=== PATIENT | female | born 1935 | race Caucasian/White ===

== ENCOUNTER → 2017-04-07 | Outpatient (CLI) | payer BC ==
[~2017-04-07] MED LIST: BIMA0.01 OPB; CHOL100010 PO; CYCL0.052 OPB; MULT1CHW42 PO; SYN75 PO; VITA100C4 PO
--- NOTE | 2017-04-07 14:32 | MAMMOGRAPHY REPORT ---
BILATERAL DIGITAL SCREENING MAMMOGRAM WITH CAD: 04/07/2017 CLINICAL HISTORY: Routine screening. Patient has no complaints. TECHNIQUE: Current study was also evaluated with a Computer Aided Detection (CAD) system. Bilateral CC and MLO views were obtained. COMPARISON: Comparison is made to exams dated: 12/10/2014 mammogram, 12/06/2013 mammogram, 11/29/2012 m ammogram, 11/23/2011 mammogram, 11/18/2010 mammogram, and 11/12/2009 mammogram - [facility] nter. BREAST COMPOSITION: The tissue of both breasts is heterogeneously dense, which may obscure small mas ses. FINDINGS: No suspicious masses, calcifications, or areas of architectural distortion are noted in ei ther breast. There has been no significant interval change compared to prior exams. Scattered bilater al benign-appearing calcifications are not significantly changed. There are stable asymmetries in th e right upper outer quadrant and left subareolar breast. IMPRESSION: ACR BI-RADS CATEGORY 2: BENIGN There is no mammographic evidence of malignancy. A 1 year screening mammogram is recommended. The pa tient will receive written notification of the results. Approximately 10% of breast cancers are not detected with mammography. A negative mammographic report should not delay biopsy if a clinically suggestive mass is present. Almita Newman M.D. /:04/07/2017 12:01:08 Plaster Machine Tender: Liliam GARCIA(R)(M)(BD), [facility] letter sent: Normal 1/2 BI-RADS Code: ACR BI-RADS Category 2: Benign
== END | disposition home or self-care (01) ==
LOC: C.MAMM 11:18
PROVIDERS: ATTEND Family Medicine
DX: Z12.31 Encounter for screening mammogram for malignant neoplasm of breast (principal)

== ENCOUNTER → 2017-06-02 | Outpatient (CLI) | payer BC ==
[2017-06-02 15:32] LABS: MEAN CELL VOLUME 92.3 fL (80-100); MEAN CORPUSCULAR HEMOGLOBIN 30.4 pg (25-34); MEAN CORPUSCULAR HGB CONC 32.9 g/dl (32-36); MEAN PLATELET VOLUME 11.4 fL (7.4-10.4); PLATELET COUNT 190 K/uL (130-400); RED BLOOD COUNT 4.44 M/uL (4.2-5.4); WHITE BLOOD COUNT 5.03 K/uL (4.8-10.8)
[2017-06-02 15:52] LABS: ALT/SGPT 21 U/L (12-78); AST/SGOT 19 U/L (15-37); BLOOD UREA NITROGEN 17 mg/dl (7-18); CALCIUM 8.6 mg/dl (8.5-10.1); CARBON DIOXIDE 29 mmol/L (21-32); CHLORIDE 105 mmol/L (98-107); GLUCOSE 119 mg/dl (70-99); POTASSIUM 4.1 mmol/L (3.5-5.1); SODIUM 142 mmol/L (136-145)
[2017-06-02 16:04] LABS: ALB/GLOB RATIO 0.9 (0.9-2); ALKALINE PHOSPHATASE 94 U/L (45-117)
[2017-06-02 16:43] LABS: URINE APPEARANCE CLEAR (CLEAR); URINE BILIRUBIN NEG (NEG); URINE COLOR YELLOW; URINE EPITHELIAL CELL AUTO 20-30 /lpf (0-5); URINE NITRITE NEG (NEG); URINE SPECIFIC GRAVITY 1.027 (1.000-1.030); UROBILINOGEN NEG (NEG)
[2017-06-02 16:47] LABS: MANUAL MICROSCOPIC REQUIRED? NO; REVIEW REQ? NO
[2017-06-02 17:31] LABS: LYME DISEASE AB IGG NEG (NEG); LYME DISEASE AB IGM NEG (NEG)
[2017-06-05 19:09] LABS: C-REACTIVE PROT HIGHSEN 0.5 MG/L
== END | disposition home or self-care (01) ==
LOC: C.LAB 14:52
PROVIDERS: ATTEND Family Medicine
DX: E03.9 Hypothyroidism, unspecified (principal); K58.9 Irritable bowel syndrome, unspecified; R53.81 Other malaise

== ENCOUNTER 2017-12-18 05:55 | Emergency (ER) | payer BC ==
[~2017-12-18] VITALS: Ht 157.5 cm; Wt 51.4 kg
[2017-12-18 05:58] VITALS: TEMP 36.6; Ht 157.5 cm; Wt 51.4 kg
[2017-12-18] MEDS ORDERED: ASPIRIN 81 MG CHEW PO STA (06:09)
[2017-12-18] MEDS ORDERED: NITROGLYCERIN 0.4 MG SL PER TAB CHARGE SL PRN (06:15)
--- NOTE | 2017-12-18 06:37 | DIAGNOSTIC IMAGING REPORT ---
CHEST ONE VIEW PORTABLE HISTORY: 82 years-old Female chest pain acute atypical chest pain COMPARISON: Chest radiograph 03/29/2016 TECHNIQUE: Portable AP view of the chest FINDINGS: Cardiac silhouette is within normal limits. Calcified hilar lymph nodes are seen bilaterally with additional calcified granulomata within the retrocardiac distribution. Mild biapical pleural-parenchymal scarring without pneumothorax, pleural effusion, focal airspace consolidation or overt pulmonary edema. The bones appear mildly demineralized with degenerative changes of the shoulders and spine. IMPRESSION: 1. No acute process of the chest. 2. Prior granulomatous disease. The above report was generated using voice recognition software. It may contain grammatical, syntax or spelling errors. Electronically signed by: Edwin Salamanca M.D. 12/18/2017 6:36 AM Dictated Date/Time: 12/18/2017 6:35 AM
--- NOTE | 2017-12-18 06:50 | EMERGENCY ROOM VISIT NOTE ---
History Report prepared by Seb: Hector Padgett Under the Supervision of: Dr. Luis Enrique Alvarez M.D. First contact with patient: 06:29 Chief Complaint: PALPITATIONS Stated Complaint: PALPITATIONS,NOT FEELING WELL,VOMITING 2DYS AGO Nursing Triage Summary: Awoke at 0300 with palpitations, asymptomatic otherwise. No associated symtpoms this morning. [place] OK at bedtime. Single episode of vomiting at breakfast two days ago. Just finished doxycycline for Lyme disease. Recent UTI. History of Present Illness The patient is a 82 year old female who presents to the Emergency Room with complaints of an episode of heart palpitations occurring 3.5 hours ago. She woke up with her symptoms during the night. She felt normal prior to falling asleep. The patient was diagnosed with Lyme disease two weeks ago, and just finished a course of Doxycycline. She notes she has a rash on her back from this. She reports vomiting once two days ago as well. The patient states that she currently feels normal. She estimates that her heart rate was over 100 bpm, but did not actually check. The patient denies chest pain, SOB, dizziness, fevers, headache, black/bloody stool, leg pain/swelling, diaphoresis, or lightheadedness. She denies recent travel, history of blood clots, or pain with inspiration. She is not on any blood thinners. The patient is on medication for hypothyroid. Source of History: patient Onset: 3.5 hours ago Symptom Intensity: Heart rate estimated over 100 bpm Quality: other (heart palpitations) Timing: other (episode) Associated Symptoms: + vomiting (once, two days ago), No fevers, No headache , No diaphoresis, No chest pain, No SOB, No melena, No hematochezia Note: The patient denies dizziness, leg pain/swelling, or lightheadedness Review of Systems See HPI for pertinent positives & negatives. A total of 10 systems reviewed and were otherwise negative. Past Medical & Surgical Medical Problems: (1) Bronchitis (2) Dysuria (3) Endometrial Hyperplasia (4) Esophageal Reflux (5) Hypothyroidism Nos (6) Shortness of breath Surgical Problems: (1) History of appendectomy Old medical records were reviewed. Nurse's notes were reviewed and I agree with. Family History FHx: cancer Hypertension Social History Smoking Status: Never Smoker Alcohol Use: none Marital Status: Housing Status: lives with significant other Occupation Status: unemployed Current/Historical Medications Scheduled Bimatoprost (Lumigan), 1 DROP OPB DAILY Cholecalciferol (Vitamin D), 1,000 INTER.UNIT PO DAILY Cyclosporine (Ophth) (Restasis), 1 DROP OPB BID Levothyroxine Sodium (Synthroid), 75 MCG PO DAILY Multiple Vitamins W/ Minerals (Centrum Multigummies Adul), 1 TAB PO DAILY Tocopheryl Acet,Dl-Alpha (Vitamin E), 100 INTER.UNIT PO DAILY Allergies Coded Allergies: Naproxen (Unverified Allergy, Severe, SWELLING OF EYES, LIPS., 12/18/17) Sulfa Antibiotics (Verified Allergy, Mild, `, 12/18/17) Tetanus Toxoid (Verified Allergy, Unknown, SWELLING, 12/18/17) Physical Exam Vital Signs Date Time Temp Pulse Resp B/P (MAP) Pulse Ox O2 Delivery O2 Flow Rate FiO2 12/18/17 08:11 82 18 150/74 100 Room Air 12/18/17 06:31 167/89 12/18/17 06:29 92 12/18/17 06:25 89 22 100 Room Air 12/18/17 06:12 166/83 12/18/17 05:58 36.6 98 18 171/95 96 Room Air Physical Exam General: Non-ill appearing older female in no acute distress. HEENT: Normal cephalic atraumatic. Pupils are equal round and reactive to light. Extraocular movements are intact. Oropharynx is pink with moist mucous membranes. No swelling of the mouth lips or tongue. Neck: Supple with a midline trachea. No meningeal signs or stiffness, no JVD or bruits. No Stridor. Chest: Clear to auscultation bilaterally. No wheezes or rhonchi. No increased work of breathing. Heart: regular rate and rhythm. Abdomen: Soft nontender, nondistended without rebound guarding or rigidity. Extremities: No cyanosis clubbing or edema. No calf tenderness or assymetry Spine/Back. Non tender to palpation. No CVA tenderness Skin: Multiple scabbed areas on the back where she has been itching. No Bullseye rash seen. Neurologic exam: Cranial nerves two through 12 are intact. Motor and sensation are intact and symmetrical throughout. Medical Decision & Procedures ER Provider Diagnostic Interpretation: Radiology results as stated below per my review and radiologist interpretation: CHEST ONE VIEW PORTABLE FINDINGS: Cardiac silhouette is within normal limits. Calcified hilar lymph nodes are seen bilaterally with additional calcified granulomata within the retrocardiac distribution. Mild biapical pleural-parenchymal scarring without pneumothorax, pleural effusion, focal airspace consolidation or overt pulmonary edema. The bones appear mildly demineralized with degenerative changes of the shoulders and spine. IMPRESSION: 1. No acute process of the chest. 2. Prior granulomatous disease. The above report was generated using voice recognition software. It may contain grammatical, syntax or spelling errors. Electronically signed by: Edwin Salamanca M.D. 12/18/2017 6:36 AM Laboratory Results 12/18/17 06:45 Red Blood Count 4.39, Mean Corpuscular Volume 90.9, Mean Corpuscular Hemoglobin 31.0, Mean Corpuscular Hemoglobin Concent 34.1, Mean Platelet Volume 10.7, Neutrophils (%) (Auto) 59.5, Lymphocytes (%) (Auto) 26.8, Monocytes (%) (Auto) 7.7, Eosinophils (%) (Auto) 5.0, Basophils (%) (Auto) 1.0, Neutrophils # (Auto) 2.49, Lymphocytes # (Auto) 1.12, Monocytes # (Auto) 0.32, Eosinophils # (Auto) 0.21, Basophils # (Auto) 0.04 12/18/17 06:45 Test 12/18/17 06:45 12/18/17 07:10 White Blood Count 4.18 K/uL (4.8-10.8) Red Blood Count 4.39 M/uL (4.2-5.4) Hemoglobin 13.6 g/dL (12.0-16.0) Hematocrit 39.9 % (37-47) Mean Corpuscular Volume 90.9 fL (80-100) Mean Corpuscular Hemoglobin 31.0 pg (25-34) Mean Corpuscular Hemoglobin Concent 34.1 g/dl (32-36) Platelet Count 194 K/uL (130-400) Mean Platelet Volume 10.7 fL (7.4-10.4) Neutrophils (%) (Auto) 59.5 % Lymphocytes (%) (Auto) 26.8 % Monocytes (%) (Auto) 7.7 % Eosinophils (%) (Auto) 5.0 % Basophils (%) (Auto) 1.0 % Neutrophils # (Auto) 2.49 K/uL (1.4-6.5) Lymphocytes # (Auto) 1.12 K/uL (1.2-3.4) Monocytes # (Auto) 0.32 K/uL (0.11-0.59) Eosinophils # (Auto) 0.21 K/uL (0-0.5) Basophils # (Auto) 0.04 K/uL (0-0.2) RDW Standard Deviation 46.0 fL (36.4-46.3) RDW Coefficient of Variation 13.8 % (11.5-14.5) Immature Granulocyte % (Auto) 0.0 % Immature Granulocyte # (Auto) 0.00 K/uL (0.00-0.02) Anion Gap 7.0 mmol/L (3-11) Est Creatinine Clear Calc Drug Dose 31.2 ml/min Estimated GFR () 53.4 Estimated GFR (Non- 46.0 BUN/Creatinine Ratio 15.6 (10-20) Calcium Level 8.4 mg/dl (8.5-10.1) Total Bilirubin 0.5 mg/dl (0.2-1) Direct Bilirubin 0.1 mg/dl (0-0.2) Aspartate Amino Transf (AST/SGOT) 23 U/L (15-37) Alanine Aminotransferase (ALT/SGPT) 25 U/L (12-78) Alkaline Phosphatase 77 U/L (45-117) Troponin I < 0.015 ng/ml (0-0.045) Total Protein 7.4 gm/dl (6.4-8.2) Albumin 3.4 gm/dl (3.4-5.0) Thyroid Stimulating Hormone (TSH) 2.380 uIu/ml (0.300-4.500) Urine Color YELLOW Urine Appearance CLEAR (CLEAR) Urine pH 7.5 (4.5-7.5) Urine Specific [place] 1.015 (1.000-1.030) Urine Protein NEG (NEG) Urine Glucose (UA) NEG (NEG) Urine Ketones NEG (NEG) Urine Occult Blood TRACE (NEG) Urine Nitrite NEG (NEG) Urine Bilirubin NEG (NEG) Urine Urobilinogen NEG (NEG) Urine Leukocyte Esterase NEG (NEG) Urine WBC (Auto) 0 /hpf (0-5) Urine RBC (Auto) 0-4 /hpf (0-4) Urine Hyaline Casts (Auto) 0 /lpf (0-5) Urine Epithelial Cells (Auto) 0-5 /lpf (0-5) Urine Bacteria (Auto) NEG (NEG) Laboratory studies as stated above per my review. Medications Administered Medications (Trade) Dose Ordered Sig/Xochitl Route Start Time Stop Time Status Last Admin Dose Admin Aspirin (Aspirin Chew) 324 mg NOW STAT PO 12/18/17 06:09 12/18/17 06:12 DC 12/18/17 06:29 324 MG ECG Per My Interpretation Indication: palpitations Rate (beats per minute): 100 Rhythm: normal sinus Findings: other (No ST elevations. No PVCs. Normal intervals. ) Comparison ECG Date: Mar 29, 2016 Change: no significant change ED Course 0631: Past medical records reviewed. The patient was evaluated in room B11B, and a complete history and physical examination were performed. 0810: Upon reevaluation, the patient is resting comfortably. I discussed the results and treatment plan with her. She verbalized agreement of the treatment plan. The patient was discharged home. Medical Decision Differentials include, but are not limited to; palpitations, ACS, arrhythmia, pulmonary disease, thyroid disease and electrolyte or metabolic abnormality. This patient comes in as described above. She was placed on a manufacturing area manager in room B 11. She woke up with rapid heart rate around 3 in the morning said was about 100. There is no lightheadedness or dizziness or syncope. No chest pain or shortness of breath. At present, she is not tachycardic and has no symptoms. EKG was obtained and shows no acute ischemic changes or significant arrhythmia. IV access was established multiple blood testing was obtained. Chest x-ray was unremarkable and shows no acute infiltrate failure or pneumothorax seen. Her blood work was unremarkable. She has no electrolyte or metabolic abnormalities. Her thyroid screening test is within normal limits. She has no elevation of her cardiac biomarkers. She seems to be most distressed with itching on her back which she thinks is from the Lyme. I think this is probably not from the Lyme. There is no bull's-eye rash. she does have some scabs where she has been itching .I recommended that she could use an antihistamine for this but be careful as it could make her drowsy and do not take before drinking, driving, working. At this point , she does not have any evidence to suggest acute coronary syndrome or significant arrhythmia. There may be some anxiety involved as well potentially. I do think she is stable for discharge and I recommend she follow-up with her doctor this week for recheck and return to the ER if: Recurrence of symptoms, any new problems or concerns, chest pain. She was happy with the plan and discharged to home. Medication Reconcilliation Current Medication List: was personally reviewed by me Blood Pressure Screening Patient's blood pressure: Elevated blood pressure Blood pressure disposition: Referred to PCP Impression Primary Impression: Palpitations Additional Impression: Pruritic rash Scribe Attestation The scribe's documentation has been prepared under my direction and personally reviewed by me in its entirety. I confirm that the note above accurately reflects all work, treatment, procedures, and medical decision making performed by me. Departure Information Dispostion Home / Self-Care Referrals Jose Mcdonnell M.D. (PCP) Forms HOME CARE DOCUMENTATION FORM, IMPORTANT VISIT INFORMATION, WORK / SCHOOL INSTRUCTIONS Patient Instructions My [facility] Additional Instructions Rest. Drink plenty of fluids. Follow-up with your doctor this week for recheck Return to the ER if: Worsening of symptoms, chest pain, shortness of breath, racing heart rate, recurrence of symptoms, any new problems or concerns For your itching you may try either Benadryl or Claritin or another over-the- counter antihistamine. Be careful however they can make you very drowsy and do not take before drinking, driving, working Problem Qualifiers
[2017-12-18 06:58] LABS: BASO ABS # 0.04 K/uL (0-0.2); EOS ABS # 0.21 K/uL (0-0.5); HEMATOCRIT 39.9 % (37-47); HEMOGLOBIN 13.6 g/dL (12.0-16.0); LYMPH % 26.8 %; LYMPH ABS # 1.12 K/uL (1.2-3.4); MEAN CELL VOLUME 90.9 fL (80-100); MEAN CORPUSCULAR HGB CONC 34.1 g/dl (32-36); MEAN PLATELET VOLUME 10.7 fL (7.4-10.4); MONO % 7.7 %; MONO ABS # 0.32 K/uL (0.11-0.59); NEUT % 59.5 %; NEUT ABS # 2.49 K/uL (1.4-6.5); PLATELET COUNT 194 K/uL (130-400); RED CELL DISTRIBUTION WIDTH CV 13.8 % (11.5-14.5); WHITE BLOOD COUNT 4.18 K/uL (4.8-10.8)
[2017-12-18 07:16] LABS: ALBUMIN 3.4 gm/dl (3.4-5.0); ALT/SGPT 25 U/L (12-78); AST/SGOT 23 U/L (15-37); BLOOD UREA NITROGEN 18 mg/dl (7-18); CALCIUM 8.4 mg/dl (8.5-10.1); CARBON DIOXIDE 28 mmol/L (21-32); CREATININE 1.12 mg/dl (0.60-1.20); GLUCOSE 100 mg/dl (70-99); POTASSIUM 3.7 mmol/L (3.5-5.1); SODIUM 142 mmol/L (136-145)
[2017-12-18 07:27] LABS: ALKALINE PHOSPHATASE 77 U/L (45-117); TOTAL PROTEIN 7.4 gm/dl (6.4-8.2)
[2017-12-18 08:11] VITALS: BP 150/74; PULSE 82; O2SAT 100
== END 2017-12-18 08:24 | disposition home or self-care (01) ==
LOC: C.EDB 05:57
DX: R00.2 Palpitations (principal); R21 Rash and other nonspecific skin eruption; R03.0 Elevated blood-pressure reading, without diagnosis of hypertension; E03.9 Hypothyroidism, unspecified; K21.9 Gastro-esophageal reflux disease without esophagitis; Z88.6 Allergy status to analgesic agent; Z88.2 Allergy status to sulfonamides; Z88.7 Allergy status to serum and vaccine

== ENCOUNTER 2022-10-23 14:15 | Inpatient (IN) ==
[2022-10-23] MEDS ORDERED: SODIUM CHLORIDE 0.9% 500 ML IV STA (14:22)
--- NOTE | 2022-10-23 14:25 | Emergency Department Note ---
Impression & Plan Closed hip fracture ADMIT ED Provider Note HPI: The patient is an 86-year-old female who presents the emergency department today with generalized weakness, states she did have a ground-level fall earlier today. Per EMS report, they were called to the house earlier today around 10 AM and found the patient on the ground, her called EMS. Patient declined transfer at that time to the hospital, EMS was later called to the house as the patient was generally weak, she states that her called, she states she does not overall feel well but she is unsure why her called. Patient is a poor historian. She is alert on arrival, she does answer most of my questions appropriately, she is oriented to place and time. She states she does have some pain in her right hip, otherwise denies any focal complaint of pain. ROS: - Per HPI *Outpatient medications and allergy history reviewed. *Pertinent external medical records reviewed. PE: General: Alert HEENT: Normocephalic, trachea midline Eyes: Extraocular eye movement is intact, no scleral erythema Pulmonary: Clear to auscultation bilaterally, no wheezing Cardio: Regular rate and rhythm GI: Abdomen is soft to palpation : No suprapubic tenderness MSK: No evidence of trauma or malformation of the extremities, no edema, patient is unable to flex at her right hip secondary to pain Skin: No evidence of rash Neuro: Alert, no focal deficits Psychiatric: Cooperative campus monitor: (As interpreted by myself): - An order was placed for continuous cardiac monitoring - Patient was noted to be in sinus rhythm with a rate of 90 EKG: (As interpreted by myself): Rate: 93 Rhythm: Normal sinus rhythm Intervals: Within normal limits ST changes: No ST elevation Time: 1430 Interventions provided in ED: -IV fluid bolus Differential Diagnosis: Right-sided hip fracture, intracranial bleed/head injury, lower extremity trauma/injury, urinary tract infection, ACS, sepsis/infection, amongst other potential pathologies. Medical Decision Making: The patient is an 86-year-old female who is a poor historian, presented to the emergency department today with a chief complaint of right lower extremity pain. Patient is a poor historian and is unable to tell me what happened this morning, per EMS reports she did have a fall. On arrival here to the ED the patient is alert, she is in no acute distress on my assessment but does have limited range of motion in the right hip secondary to pain. CT imaging of the head was obtained given the patient's reported unwitnessed fall, this does not show any evidence of intracranial injury. CT imaging of the right hip was also obtained while the patient was at CT given exam findings, this does show evidence of a right-sided intertrochanteric fracture. Patient is otherwise stable here in the ED, she is not on any blood thinners, lab work shows stable hemoglobin at 13.7, mild leukocytosis at 11.3 which I suspect is reactive in nature, BMP is otherwise fairly unremarkable. Gonzales catheter was placed and urine is concerning for infection, blood cultures ordered and patient was given a dose of IV ceftriaxone. Case was discussed with the on-call hospitalist for [facility], Dr. Mayfield, admission was placed. Case was then discussed with on-call orthopedics, Dr. Mcintosh, who is in agreement for routine consultation. Patient and her at the bedside were updated on the above findings, patient was placed for admission in stable condition. Consultants: -Hospitalist service, Dr. Mayfield -Orthopedic service, Dr. Mcintosh Disposition discussion held by myself with: Patient and at the bedside Diagnosis: 1. Right-sided hip fracture status post mechanical fall, closed, intertrochanteric 2. Urinary tract infection, acute 3. Ambulatory dysfunction Disposition: Admission Osito Garcia DO Emergency Medicine Past Med/Surg History Medical History (Updated 10/23/22 @ 15:55 by Miguel Mayfield MD) Bronchitis Generalized weakness Generalized weakness Shortness of breath Thyroid disease Surgical History History of appendectomy Family History Other Family history non-contributory Social History Smoking Status: Never smoker Preferred Language: Estonian marital status: current occupational status: retired Feels Safe at Home: Yes Allergies Allergies Allergy/AdvReac Type Severity Reaction Status Date / Time naproxen Allergy Severe SWELLING Verified 10/23/22 15:28 OF EYES, LIPS. nitrofurantoin Allergy Intermediate Rash Verified 10/23/22 15:28 [From Macrobid] Sulfa (Sulfonamide Allergy Intermediate Rash Verified 10/23/22 15:28 Antibiotics) tetanus toxoid, adsorbed Allergy Intermediate SWELLING Verified 10/23/22 15:28 loperamide [From Imodium A-D] AdvReac Intermediate MANAGER ACCOUNT MANAGEMENT side Verified 10/23/22 15:28 effects omeprazole [From Prilosec] AdvReac Intermediate Abdominal Verified 10/23/22 15:28 Pain risedronate sodium AdvReac Intermediate Aches and Verified 10/23/22 15:28 [From Actonel] gastrointestinal upset Home Meds Home Medications Medication Instructions Recorded Confirmed bimatoprost 0.01 % eye drops 1 drp OPB QPM 08/18/18 10/23/22 (Lumigan) cyclosporine 0.05 % eye drops in a 1 drp OPB DAILY PRN Dry Eyes 08/18/18 10/23/22 dropperette (Restasis) levothyroxine 75 mcg tablet 75 mcg PO QAM 08/18/18 10/23/22 xuoectqr-xmb-zqlsu acid 0.4 1 tab PO QPM 05/12/19 10/23/22 mg-lycopene 300 mcg-lutein 250 mcg tablet (Centrum Silver) Results & Data (ED) Vital Signs Vital Signs - 24 hr 10/23/22 14:15 10/23/22 14:22 10/23/22 15:47 Temperature 36.8 C Temperature Source Oral Pulse Rate 97 H 93 H Respiratory Rate 16 Respiratory Effort / Characteristics Non-Labored Spontaneous Respiratory Depth Normal Blood Pressure 176/74 H Blood Pressure Mean 108 Blood Pressure Position Lying Pulse Oximetry 100 98 Oxygen Delivery Method Room Air Room Air Sepsis Recent Fever Within 48 Hours No Sepsis New/Unexplained Change in Mental Status No Sepsis Action Taken by Nursing No Action Required Laboratory Data 10/23/22 14:40 10/23/22 14:40 Lab Results 10/23/22 10/23/22 10/23/22 Range/Units 14:40 14:40 14:40 WBC 11.30 H (4.8-10.8) K/ul RBC 4.47 (4.20-5.40) M/uL Hgb 13.7 (12.0-16.0) g/dl Hct 41.5 (37.0-47.0) % MCV 92.8 (80.0-100.0) fL MCH 30.6 (25.0-34.0) pg MCHC 33.0 (32.0-36.0) g/dL RDW Std Deviation 45.4 (36.4-46.3) fL RDW Coeff of Yuliana 13.3 (11.5-14.5) % Plt Count 209 (130-400) K/uL MPV 11.4 (9.4-12.4) fL Immature Gran % (Auto) 0.4 % Neut % (Auto) 87.3 % Lymph % (Auto) 5.7 % [place] % (Auto) 5.6 % Eos % (Auto) 0.3 % Baso % (Auto) 0.7 % Neut # (Auto) 9.88 H (1.40-6.50) K/uL Lymph # (Auto) 0.64 L (1.2-3.4) K/uL [place] # (Auto) 0.63 H (0.11-0.59) K/uL Eos # (Auto) 0.03 (0-0.50) K/uL Baso # (Auto) 0.08 (0-0.2) K/uL Immature Gran # (Auto) 0.04 (0.01-0.20) K/uL PT Cancelled INR Cancelled Sodium 141 (136-145) mmol/L Potassium 4.0 (3.5-5.1) mmol/L Chloride 105 (98-107) mmol/L Carbon Dioxide 31 (21-32) mmol/L Anion Gap 5 (3-11) BUN 26 H (6-23) mg/dl Creatinine 1.04 (0.6-1.2) mg/dl Est Cr Clr Drug Dosing 31.3 ml/min Est GFR ( Amer) 56.7 ml/min Est GFR (Non-Af Amer) 49.0 ml/min BUN/Creatinine Ratio 25.0 H (10-20) Glucose 140 H (70-99(Fasting)) mg/dl Calcium 9.3 (8.5-10.1) mg/dl Total Bilirubin 0.6 (0.2-1.0) mg/dl AST 20 (13-39) U/L ALT 12 (7-52) U/L Alkaline Phosphatase 78 (34-104) U/L Troponin I High Sens 3.5 (0-14) pg/ml Total Protein 7.5 (6.0-8.3) gm/dl Albumin 4.0 (3.4-5.0) gm/dl Globulin 3.5 (2.5-4.0) gm/dl Albumin/Globulin Ratio 1.1 (0.9-2) Lipase 16 (11-82) U/L Urine Color Urine Appearance (Clear) Urine pH (4.5-7.5) Ur Specific [place] (1.000-1.030) Urine Protein (Negative) Urine Glucose (UA) (Negative) Urine Ketones (Negative) Urine Blood (Negative) Urine Nitrite (Negative) Urine Bilirubin (Negative) Urine Urobilinogen (Negative) Ur Leukocyte Esterase (Negative) Urine WBC (Auto) (0-5) /hpf Urine RBC (Auto) (0-4) /hpf U Hyaline Cast (Auto) (0-5) /lpf U Epithel Cells (Auto) (0-5) /lpf Urine Bacteria (Auto) (Negative) 10/23/22 Range/Units 15:17 WBC (4.8-10.8) K/ul RBC (4.20-5.40) M/uL Hgb (12.0-16.0) g/dl Hct (37.0-47.0) % MCV (80.0-100.0) fL MCH (25.0-34.0) pg MCHC (32.0-36.0) g/dL RDW Std Deviation (36.4-46.3) fL RDW Coeff of Yuliana (11.5-14.5) % Plt Count (130-400) K/uL MPV (9.4-12.4) fL Immature Gran % (Auto) % Neut % (Auto) % Lymph % (Auto) % [place] % (Auto) % Eos % (Auto) % Baso % (Auto) % Neut # (Auto) (1.40-6.50) K/uL Lymph # (Auto) (1.2-3.4) K/uL [place] # (Auto) (0.11-0.59) K/uL Eos # (Auto) (0-0.50) K/uL Baso # (Auto) (0-0.2) K/uL Immature Gran # (Auto) (0.01-0.20) K/uL PT INR Sodium (136-145) mmol/L Potassium (3.5-5.1) mmol/L Chloride (98-107) mmol/L Carbon Dioxide (21-32) mmol/L Anion Gap (3-11) BUN (6-23) mg/dl Creatinine (0.6-1.2) mg/dl Est Cr Clr Drug Dosing ml/min Est GFR ( Amer) ml/min Est GFR (Non-Af Amer) ml/min BUN/Creatinine Ratio (10-20) Glucose (70-99(Fasting)) mg/dl Calcium (8.5-10.1) mg/dl Total Bilirubin (0.2-1.0) mg/dl AST (13-39) U/L ALT (7-52) U/L Alkaline Phosphatase (34-104) U/L Troponin I High Sens (0-14) pg/ml Total Protein (6.0-8.3) gm/dl Albumin (3.4-5.0) gm/dl Globulin (2.5-4.0) gm/dl Albumin/Globulin Ratio (0.9-2) Lipase (11-82) U/L Urine Color Yellow Urine Appearance Clear (Clear) Urine pH 6.0 (4.5-7.5) Ur Specific [place] 1.018 (1.000-1.030) Urine Protein Negative (Negative) Urine Glucose (UA) Negative (Negative) Urine Ketones Negative (Negative) Urine Blood 1+ H (Negative) Urine Nitrite Positive A (Negative) Urine Bilirubin Negative (Negative) Urine Urobilinogen Negative (Negative) Ur Leukocyte Esterase 1+ H (Negative) Urine WBC (Auto) 10-30 H (0-5) /hpf Urine RBC (Auto) 0-4 (0-4) /hpf U Hyaline Cast (Auto) 1-5 (0-5) /lpf U Epithel Cells (Auto) 0-5 (0-5) /lpf Urine Bacteria (Auto) 4+ H (Negative) Administered Medications Discontinued Medications Sodium Chloride (Nss) 500 mls @ 999 mls/hr IV .Q31M STA Stop: 10/23/22 14:52 Last Infusion: 10/23/22 15:11 Dose: 0 mls/hr Documented By: Admin: 10/23/22 14:40 Dose: 999 mls/hr Documented By: AB Imaging Data Radiologist's Impression: Head CT 10/23/22 14:21 CT head/brain wo con CLINICAL HISTORY: 86 years-old Female with Fall. Acute head trauma status post fall TECHNIQUE: Multiple axial CT images of the head were obtained without contrast. A dose lowering technique was utilized adhering to the principles of ALARA. COMPARISON: 04/20/2014 FINDINGS: No acute intracranial hemorrhage, midline shift, intracranial mass, hydrocephalus, territorial ischemia or abnormal extra-axial collection. Involutional changes with chronic microvascular ischemic disease. The calvarium is intact. Bilateral lens repair. The paranasal sinuses, mastoid air cells, and middle ear cavities are clear. IMPRESSION: No acute intracranial abnormality or calvarial fracture. ACT 112: Negative or not required by law. The above report was generated using voice recognition software. It may contain grammatical, syntax or spelling errors. Electronically signed by: Priyank Salamanca M.D. 10/23/2022 3:[address] 10/23/22 14:21 CT hip RT wo con HISTORY: 86 years-old Female fall, R hip pain . Acute right-sided hip pain status post fall COMPARISON: CT abdomen and pelvis 07/06/2019 TECHNIQUE: Multiple axial CT images of the right hip were obtained without the use of IV contrast. A dose lowering technique was used consistent with the principals of ALARA. FINDINGS: No acute intrapelvic abnormality. Colonic diverticulosis. There is an acute intertrochanteric comminuted mildly impacted fracture of the right femur with fracture fragments displaced up to 10 mm. Moderate right hip osteoarthritis. No additional acute fracture or dislocation. IMPRESSION: Acute acute mildly impacted and mildly displaced intertrochanteric fracture of the right femur. ACT 112: Negative or not required by law. The above report was generated using voice recognition software. It may contain grammatical, syntax or spelling errors. Electronically signed by: Priyank Salamanca M.D. 10/23/2022 3:12 PM Chest X-Ray 10/23/22 14:23 XR chest 1V portable HISTORY: 86 years-old Female fall acute chest trauma status post fall COMPARISON: 07/14/2019 TECHNIQUE: Supine AP view of the chest FINDINGS: Cardiomediastinal and hilar silhouettes are within normal limits. Unchanged mediastinal calcifications. No pneumothorax, pleural effusion, airspace consolidation or overt pulmonary edema. Bones appear grossly intact. IMPRESSION: No acute process. ACT 112: Negative or not required by law. The above report was generated using voice recognition software. It may contain grammatical, syntax or spelling errors. Electronically signed by: Priyank Salamanca M.D. 10/23/2022 3:33 PM Discharge Plan Visit Data Chief Complaint: Fall Stated Complaint: FALL/RIGHT HIP PAIN ED Provider: Osito Garcia Discharge Problem: Closed hip fracture Forms Stand Alone Forms: My [facility] Prescriptions Prescriptions: No Action levothyroxine 75 mcg tablet 75 mcg PO QAM cyclosporine [Restasis] 0.05 % Dropperette 1 drp OPB DAILY PRN (Reason: Dry Eyes) Lumigan 0.01 % Drops 1 drp OPB QPM Centrum Silver 0.4-300-250 mg-mcg-mcg Tablet 1 tab PO QPM Referrals Referrals: Jose Mcdonnell MD [Physician] - Closed hip fracture Qualifiers: Encounter type: initial encounter Laterality: right Qualified Code(s): S72.001A - Fracture of unspecified part of neck of right femur, initial encounter for closed fracture
[2022-10-23 14:53] LABS: Basophils # (auto) 0.08 K/uL (0-0.2); Basophils % (auto) 0.7 %; Eosinophils # (auto) 0.03 K/uL (0-0.50); Eosinophils % (auto) 0.3 %; Hematocrit (blood only) 41.5 % (37.0-47.0); Hemoglobin 13.7 g/dl (12.0-16.0); Immature Granulocytes # (auto) 0.04 K/uL (0.01-0.20); Immature Granulocytes % (auto) 0.4 %; Lymphocytes # (auto) 0.64 K/uL (1.2-3.4); Lymphocytes % (auto) 5.7 %; Mean Corpuscular Hemoglobin 30.6 pg (25.0-34.0); Mean Corpuscular Volume 92.8 fL (80.0-100.0); Mean Platelet Volume 11.4 fL (9.4-12.4); Monocytes # (auto) 0.63 K/uL (0.11-0.59); Monocytes % (auto) 5.6 %; Neutrophils # (auto) 9.88 K/uL (1.40-6.50); Neutrophils % (auto) 87.3 %; Platelet Count 209 K/uL (130-400); RDW Coefficient of Variation 13.3 % (11.5-14.5); RDW Standard Deviation 45.4 fL (36.4-46.3); Red Blood Count 4.47 M/uL (4.20-5.40)
--- NOTE | 2022-10-23 15:09 | CT Scan Report ---
CT head/brain wo con CLINICAL HISTORY: 86 years-old Female with Fall. Acute head trauma status post fall TECHNIQUE: Multiple axial CT images of the head were obtained without contrast. A dose lowering tech nique was utilized adhering to the principles of ALARA. COMPARISON: 04/20/2014 FINDINGS: No acute intracranial hemorrhage, midline shift, intracranial mass, hydrocephalus, territorial ischem ia or abnormal extra-axial collection. Involutional changes with chronic microvascular ischemic disea se. The calvarium is intact. Bilateral lens repair. The paranasal sinuses, mastoid air cells, and middle ear cavities are clear. IMPRESSION: No acute intracranial abnormality or calvarial fracture. ACT 112: Negative or not required by law. The above report was generated using voice recognition software. It may contain grammatical, syntax o r spelling errors. Electronically signed by: Priyank Salamanca M.D. 10/23/2022 3:07 PM
[2022-10-23 15:12] LABS: Albumin Globulin Ratio 1.1 (0.9-2); Bilirubin,Total 0.6 mg/dl (0.2-1.0); Calcium 9.3 mg/dl (8.5-10.1); Creatinine Clr Calc Pharmacy 31.3 ml/min; Est GFR (African American) 56.7 ml/min; Globulin 3.5 gm/dl (2.5-4.0); Total Protein 7.5 gm/dl (6.0-8.3)
--- NOTE | 2022-10-23 15:15 | CT Scan Report ---
CT hip RT wo con HISTORY: 86 years-old Female fall, R hip pain . Acute right-sided hip pain status post fall COMPARISON: CT abdomen and pelvis 07/06/2019 TECHNIQUE: Multiple axial CT images of the right hip were obtained without the use of IV contrast. A dose lowering technique was used consistent with the principals of ROMÁN. FINDINGS: No acute intrapelvic abnormality. Colonic diverticulosis. There is an acute intertrochanteric comminu desirae mildly impacted fracture of the right femur with fracture fragments displaced up to 10 mm. Modera te right hip osteoarthritis. No additional acute fracture or dislocation. IMPRESSION: Acute acute mildly impacted and mildly displaced intertrochanteric fracture of the right femur. ACT 112: Negative or not required by law. The above report was generated using voice recognition software. It may contain grammatical, syntax o r spelling errors. Electronically signed by: Priyank Salamanca M.D. 10/23/2022 3:12 PM
[2022-10-23 15:17] LABS: Troponin I High Sensitivity 3.5 pg/ml (0-14)
[2022-10-23 15:29] LABS: Appearance Urine Clear (Clear); Bacteria Urine Automated 4+ (Negative); Bilirubin Urine Negative (Negative); Blood Urine 1+ (Negative); Color Urine Yellow; Epithelial Cell Urine Auto 0-5 /lpf (0-5); Glucose Urine UA Negative (Negative); Ketones Urine Negative (Negative); Leukocyte Esterase Urine 1+ (Negative); Nitrite Urine Positive (Negative); Protein Urine Negative (Negative); RBC Urine Automated 0-4 /hpf (0-4); Specific Gravity Urine 1.018 (1.000-1.030); Urobilinogen Urine Negative (Negative)
--- NOTE | 2022-10-23 15:32 | History & Physical Report ---
Date of Service October 23, 2022 Assessment & Plan (1) Hip fracture, right: Plan: Hip fracture 2/2 ground-level fall without head injury in the setting of UTI -CThead: No intracranial injury -CTright hip: Right-sided intertrochanteric fracture Orthopedics consulted RCRI 0 points, class I risk -Hemoglobin 13.7 -Leukocytosis 11.3 likely reactive -EKG: Normal sinus rhythm, rate 93, QTc 447 -Sodium: Normal -Potassium: Normal -BS, no history of diabetes. -CXR: No acute findings, CVA clear - Gonzales in place, fall precautions - NPO, Normosol 2/2 rocephin use (2) UTI (urinary tract infection): Plan: UTI Tachycardia, 2 to 3 days of weakness, infected appearing UA - UC pending Blood cultures pending Received empiric Rocephin, continued. Follow cultures Patient Bactrim allergic, otherwise no antibiotic allergies Suspect weakness just daily UTI leading to fall with hip fracture (3) Thyroid disease: Plan: Continue Synthroid (4) Closed hip fracture: Plan CODE STATUS: Full code per discussion with the patient and her . Diet: N.p.o. DVT prophylaxis: SCDs. Heparin BID for CrCl ~30, hold morning of surgery Dispo: Medical surgical History of Present Illness Primary Care Provider: Artemio Rodriguez MD Noemí is a 86-year-old female presents with a ground-level fall and generalized weakness at 10 AM. Patient initially declined transfer to hospital when her called EMS, however cannot ambulate and has been called and then transferred patient to the hospital by EMS. Patient is a poor historian, history is limited by cognitive status. History is taken with the assistance of her at the bedside. Patient is not oriented, frequently forgetful, and forgets that she has broken her hip several times during HPI. Her reports that she has been much more weak in the last day or 2. Has not complained of urinary symptoms, but has had similar weakness with UTIs in the past. This morning she was eating breakfast when he heard her cry and cereal at the floor, patient was found to have fallen. EMS was called but patient did not want to go to the hospital and declined initially. She was unable to get up off the ground and her was not able to help her and get her standing, EMS was called again and patient was brought to the ER for evaluation. She denies chest pain, chest pressure, lightheadedness, dizziness. She does endorse right hip pain when she tries to move. Denies numbness/tingling. No abdominal pain. Denies urinary frequency, dysuria. Per patient and her at bedside patient has no history of cardiac disease, no history of heart failure, no diabetes, no kidney disease, no lung disease. Has never been on insulin. Does not take any blood thinners. Takes eyedrops, and Synthroid. Otherwise has no chronic medical problems and takes no other medications. Is allergic to sulfa. No other medication allergies. Denies pertinent family history. Denies alcohol, tobacco, medical marijuana, recreational drug use. Has not had any reactions to anesthesia in the past. Allergies Allergy/AdvReac Type Severity Reaction Status Date / Time naproxen Allergy Severe SWELLING Verified 10/23/22 15:28 OF EYES, LIPS. nitrofurantoin Allergy Intermediate Rash Verified 10/23/22 15:28 [From Macrobid] Sulfa (Sulfonamide Allergy Intermediate Rash Verified 10/23/22 15:28 Antibiotics) tetanus toxoid, adsorbed Allergy Intermediate SWELLING Verified 10/23/22 15:28 loperamide [From Imodium A-D] AdvReac Intermediate ART GALLERY INTERNSHIP side Verified 10/23/22 15:28 effects omeprazole [From Prilosec] AdvReac Intermediate Abdominal Verified 10/23/22 15:28 Pain risedronate sodium AdvReac Intermediate Aches and Verified 10/23/22 15:28 [From Actonel] gastrointestinal upset Home Medications Medication Instructions Recorded Confirmed Type bimatoprost 0.01 % eye drops 1 drp OPB QPM 08/18/18 10/23/22 History (Lumigan) cyclosporine 0.05 % eye drops in a 1 drp OPB DAILY PRN Dry Eyes 08/18/18 10/23/22 History dropperette (Restasis) levothyroxine 75 mcg tablet 75 mcg PO QAM 08/18/18 10/23/22 History rbcxyfpa-yfi-drpiy acid 0.4 1 tab PO QPM 05/12/19 10/23/22 History mg-lycopene 300 mcg-lutein 250 mcg tablet (Centrum Silver) Past Med/Surg History Medical History (Updated 10/23/22 @ 15:55 by Miguel Mayfield MD) Bronchitis Generalized weakness Generalized weakness Shortness of breath Thyroid disease Surgical History History of appendectomy Family History Other Family history non-contributory Social History Smoking Status: Never smoker Preferred Language: Arabic marital status: current occupational status: retired Feels Safe at Home: Yes Review of Systems Review of Systems: All systems reviewed & are unremarkable except as noted in HPI & below Physical Exam Physical Exam: General: Patient is oriented to name only. Tangential thought process, frequently forgetful. History is collected with assistance of her at bedside HEENT: Atraumatic, normocephalic. Pupils equal and reactive to light, vision and hearing grossly intact Pulm: CTAB A&P. -wheezes, -rales, -rhonchi. Symmetrical chest rise. No increased work of breathing. No respiratory distress. Cardiac: Tachycardic, improved following fluids. radial pulses intact and symmetrical. Abdominal: Nontender, nondistended, soft. BS present. Extremities: Right hip externally rotated, shortened. Tender to palpation at the lateral hip. Sensation of soft touch intact in feet bilaterally, PT pulse intact bilaterally, wiggles toes bilaterally. Parts Cleaner strength 5/5, sensation to soft touch intact in hands bilaterally. Results & Data Results & Data ([facility]) Vital Signs (Past 12 Hours) Vital Signs Temp Pulse Resp BP Pulse Ox O2 Del Method 10/23/22 14:22 98 Room Air 10/23/22 14:15 36.8 C 97 H 16 176/74 H 100 Room Air PG Care Time/CCT Total # of Minutes Spent Total Time Spent with Patient: Total time spent is greater than 50% in coordination of care (as documented) at patient's floor/unit and/or counseling patient: Coding Level of Care Code 55657 INT INP/OBS CARE 2/MIN Diagnoses Hip fracture, right S72.001A UTI (urinary tract infection) N39.0 Thyroid disease E07.9 Closed hip fracture S72.001A Encounter type: initial encounter Laterality: right (4) Closed hip fracture Encounter type: initial encounter Laterality: right Qualified Code(s): S72.001A - Fracture of unspecified part of neck of right femur, initial encounter for closed fracture
[2022-10-23] MEDS ORDERED: cefTRIAXone SODIUM 1,000 MG in DEXTROSE 5% AD-VAN 50 ML IV STA (15:33)
--- NOTE | 2022-10-23 15:35 | XRay Report ---
XR chest 1V portable HISTORY: 86 years-old Female fall acute chest trauma status post fall COMPARISON: 07/14/2019 TECHNIQUE: Supine AP view of the chest FINDINGS: Cardiomediastinal and hilar silhouettes are within normal limits. Unchanged mediastinal calcification s. No pneumothorax, pleural effusion, airspace consolidation or overt pulmonary edema. Bones appear g rossly intact. IMPRESSION: No acute process. ACT 112: Negative or not required by law. The above report was generated using voice recognition software. It may contain grammatical, syntax o r spelling errors. Electronically signed by: Priyank Salamanca M.D. 10/23/2022 3:33 PM
[2022-10-23] MEDS ORDERED: NORMOSOL-R 1,000 ML IV SCH (16:00)
--- NOTE | 2022-10-23 16:48 | XRay Report ---
XR hip 1V RT w pelvis HISTORY: 86 years-old Female Hip Fracture acute right hip pain status post fall COMPARISON: CT right hip of same day TECHNIQUE: AP view the pelvis with crosstable lateral view of the right hip FINDINGS: Acute intertrochanteric fracture of the right femur demonstrates mild impaction with mild apex latera l angulation. Demineralized appearance of the bones. Moderate osteoarthritis of the hips. IMPRESSION: Unchanged alignment of the acute intertrochanteric fracture of the right femur. ACT 112: Negative or not required by law. The above report was generated using voice recognition software. It may contain grammatical, syntax o r spelling errors. Electronically signed by: Priyank Salamanca M.D. 10/23/2022 4:47 PM
[2022-10-23 16:53] LABS: Prothrombin Time 10.9 Seconds (9.0-12.0)
[2022-10-23] MEDS ORDERED: ONDANSETRON INJ 2 MG/ML 2 ML VIAL IV PRN (20:29)
[2022-10-23] MEDS ORDERED: HYDROmorphone INJ 0.5 MG/0.5 ML SYR IV PRN ×2 (20:29)
[2022-10-23] MEDS ORDERED: bisacodyL 10 MG SUPP PR PRN (20:29)
[2022-10-23] MEDS ORDERED: NALOXONE HCL 0.4 MG/1 ML VIAL/CARP IV PRN (20:29)
[2022-10-23] MEDS ORDERED: MAGNESIUM HYDROXIDE SUSP 30 ML UDC PO PRN (20:29)
[2022-10-23] MEDS ORDERED: ACETAMINOPHEN 325 MG TAB PO PRN (20:29)
[2022-10-23] MEDS ORDERED: HEPARIN SOD 5,000 UNIT/0.5 ML VIAL SQ SCH (21:00)
[2022-10-23] MEDS: ACETAMINOPHEN 1,000 MG/100 ML VIAL IV PRN (21:27)
[2022-10-23] MEDS: NORMOSOL-R 1,000 ML IV SCH (21:28)
[2022-10-23] MEDS: BIMATOPROST 0.01% OP SOLN 2.5 ML BTL OP SCH (21:32)
[2022-10-23] MEDS: DOCUSATE SODIUM/SENNA 50/8.6MG TAB PO SCH (21:34)
[2022-10-23] MEDS: CEROVITE ADV FORMULA TAB PO SCH (21:34)
[2022-10-24] MEDS: LEVOTHYROXINE SODIUM 75 MCG TABLET PO SCH (06:12)
[2022-10-24 06:55] LABS: Basophils # (auto) 0.06 K/uL (0-0.2); Basophils % (auto) 0.8 %; Eosinophils % (auto) 1.4 %; Hemoglobin 12.1 g/dl (12.0-16.0); Immature Granulocytes # (auto) 0.02 K/uL (0.01-0.20); Immature Granulocytes % (auto) 0.3 %; Lymphocytes # (auto) 1.05 K/uL (1.2-3.4); Lymphocytes % (auto) 14.3 %; Mean Corpuscular Hemoglobin 30.4 pg (25.0-34.0); Mean Corpuscular Hgb Conc 32.7 g/dL (32.0-36.0); Mean Platelet Volume 11.3 fL (9.4-12.4); Monocytes # (auto) 0.82 K/uL (0.11-0.59); Monocytes % (auto) 11.2 %; Platelet Count 177 K/uL (130-400); RDW Coefficient of Variation 13.3 % (11.5-14.5); RDW Standard Deviation 45.8 fL (36.4-46.3); Red Blood Count 3.98 M/uL (4.20-5.40); White Blood Count 7.35 K/ul (4.8-10.8)
[2022-10-24 07:10] LABS: BUN Creatinine Ratio 17.5 (10-20); Calcium 8.7 mg/dl (8.5-10.1); Creatinine Clr Calc Pharmacy 39.9 ml/min; Est GFR (African American) 77.4 ml/min; Est GFR (Non-African American) 66.8 ml/min; Potassium 3.8 mmol/L (3.5-5.1)
--- NOTE | 2022-10-24 07:13 | Orthopedic Consultation ---
Date of Service October 24, 2022 Assessment & Plan (1) Hip fracture, right: Patient is admitted admitted by the medicine service. She looks medically optimized. We will get a plan on taken to the operating IM nailing of right hip fractur This whole procedure was explained to her . I did not feel she was able to give appropriate consent. The risks and benefits were explained. He understands and elects to proceed. We will plan on doing this later this afternoon as long as medically cleared. History of Present Illness Reason for Consultation: .Right hip fracture right hip fracture Requesting Physician: . Attending Physician: Miguel Mayfield MD .Patient is a 87-year-old female who sustained a fall yesterday. Was a mechanical fall. She was brought to emergency room where x-rays were displaced intertrochanteric hip fracture. She been admitted by the medicine service and we have been consulted. Allergies Allergy/AdvReac Type Severity Reaction Status Date / Time naproxen Allergy Severe SWELLING Verified 10/23/22 15:28 OF EYES, LIPS. 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 10/23/22 15:28 effects omeprazole [From Prilosec] AdvReac Intermediate Abdominal Verified 10/23/22 15:28 Pain risedronate sodium AdvReac Intermediate Aches and Verified 10/23/22 15:28 [From Actonel] gastrointestinal upset Home Medications Medication Instructions Recorded Confirmed Type bimatoprost 0.01 % eye drops 1 drp OPB QPM 08/18/18 10/23/22 History (Lumigan) cyclosporine 0.05 % eye drops in a 1 drp OPB DAILY PRN Dry Eyes 08/18/18 10/23/22 History dropperette (Restasis) levothyroxine 75 mcg tablet 75 mcg PO QAM 08/18/18 10/23/22 History urgbzlfd-vie-ovptr acid 0.4 1 tab PO QPM 05/12/19 10/23/22 History mg-lycopene 300 mcg-lutein 250 mcg tablet (Centrum Silver) Past Med/Surg History Medical History Bronchitis Generalized weakness Generalized weakness Shortness of breath Thyroid disease Surgical History History of appendectomy Family History Other Family history non-contributory Social History Smoking Status: Never smoker Second Hand Exposure: No; Do You Dip or Chew Tobacco: No; Tobacco Cessation Education Requested by Patient: No Hx Alcohol Use: No Hx Substance Use: No Preferred Language: Mohawk Communication Ability: Effective Alligator Trapper Required: No Beliefs That Will Affect Care: None marital status: Current Living Situation: Alone current occupational status: retired Other Information That Helps Us Care for You: No Feels Safe at Home: Yes Safety Concerns: Feels Safe At This Time Assistive Devices: None Review of Systems All systems reviewed & are unremarkable except as noted in HPI & below. Physical Exam . Patient is relatively healthy with some underlying dementia. No other complaints. Some mild hip pain. Examination of the right hip reveals to be slightly shortened and externally rotated. There is no segment swelling or bruising. No knee effusion. She got marked pain with any type of hip motion. She is neurologically intact. Results & Data Results & Data Laboratory Results . Diagnostic Findings . X-rays reveal a displaced intertrochanteric hip fracture. Diffuse osteopenia. Minimal arthritic change. PG Care Time/CCT Total # of Minutes Spent Total Time Spent with Patient: Total time spent is greater than 50% in coordination of care (as documented) at patient's floor/unit and/or counseling patient: Coding Level of Care Code 82799 IN/OBS CONSULT LVL 5,80M Diagnoses Hip fracture, right S72.001A
[2022-10-24 07:21] LABS: INR 1.1 (0.9-1.1); Partial Thromboplastin Time 26.5 Seconds (21.0-31.0); Prothrombin Time 11.3 Seconds (9.0-12.0)
[2022-10-24] MEDS: ACETAMINOPHEN 1,000 MG/100 ML VIAL IV PRN (11:35)
[2022-10-24] MEDS ORDERED: ONDANSETRON INJ 2 MG/ML 2 ML VIAL ONE (12:18)
[2022-10-24] MEDS ORDERED: PROPOFOL IV EMULSION 10 MG/ML 20 ML VIAL IV ONE (12:18)
[2022-10-24] MEDS ORDERED: LIDOCAINE 2% MPF LOCAL 5 ML VIAL INFIL ONE (12:18)
[2022-10-24] MEDS ORDERED: fentaNYL citrate 100 MCG/2 ML VIAL ONE (12:18)
[2022-10-24] MEDS ORDERED: DEXAMETHASONE SOD INJ 4 MG/ML VIAL ONE (12:18)
[2022-10-24 12:34] LABS: Estimated Average Glucose 111 mg/dl; Hemoglobin A1C 5.5 % (4.5-5.6)
[2022-10-24] MEDS ORDERED: BUPIVACAINE/EPINEPHRINE 0.5% MPF 1:200,000 30 ML VIAL ONE (12:56)
[2022-10-24] MEDS ORDERED: ATROPINE SULFATE 0.1 MG/ML 10ML SYR IV PRN (12:59)
[2022-10-24] MEDS ORDERED: ONDANSETRON INJ 2 MG/ML 2 ML VIAL IV PRN (12:59)
[2022-10-24] MEDS ORDERED: fentaNYL citrate 100 MCG/2 ML VIAL IV PRN (12:59)
[2022-10-24] MEDS ORDERED: ePHEDrine sulfate 50 MG/ML AMP IV PRN (12:59)
--- NOTE | 2022-10-24 12:59 | Anesthesiology Consultation ---
Date of Service October 24, 2022 Assessment & Plan (1) Encounter for pre-operative examination: Chart Review Chart Review: Acceptable Risk for Surgery and Patient NOT seen in Pre Admission Testing Consults Requested none History Surgery Operation Date: 10/24/22 11:00 Proposed Procedures p Right Long Troch Nail - William Mcintosh MD Height/Weight Height: 5 ft 2 in Weight: 51.483 kg Allergies Allergy/AdvReac Type Severity Reaction Status Date / Time naproxen Allergy Severe SWELLING Verified 10/24/22 12:38 OF EYES, LIPS. 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/24/22 12:38 effects omeprazole [From Prilosec] AdvReac Intermediate Abdominal Verified 10/24/22 12:38 Pain risedronate sodium AdvReac Intermediate Aches and Verified 10/24/22 12:38 [From Actonel] gastrointestinal upset Medications Home Medications Medication Instructions Recorded Confirmed Last Taken bimatoprost 0.01 % eye drops 1 drp OPB QPM 08/18/18 10/23/22 10/22/22 (Blaine) cyclosporine 0.05 % eye drops in a 1 drp OPB DAILY PRN Dry Eyes 08/18/18 10/23/22 07/04/19 dropperette (Restasis) levothyroxine 75 mcg tablet 75 mcg PO QAM 08/18/18 10/23/22 10/23/22 loxuflhm-lcf-uqsfx acid 0.4 1 tab PO QPM 05/12/19 10/23/22 10/22/22 mg-lycopene 300 mcg-lutein 250 mcg tablet (Centrum Silver) Active Medications Generic Name Dose Route Start Last Admin Trade Name Freq PRN Reason Stop Dose Admin Bimatoprost 1 drops 10/23/22 21:00 10/23/22 21:32 Bimatoprost 0.01% Op Soln 2.5 Ml Btl OP 11/22/22 20:59 1 drops QPM JASON Administration Hydromorphone HCl 0.5 mg 10/23/22 20:29 03/06/23 03:24 Hydromorphone Inj 0.5 Mg/0.5 Ml Syr IV 11/06/22 20:28 0.5 mg Q3H PRN Administration Pain (6,7,8,9,10) Parenteral Electrolytes 1,000 mls @ 80 mls/hr 10/23/22 20:29 10/23/22 21:28 Normosol-R IV 11/22/22 20:28 80 mls/hr .[id number] JASON Administration Acetaminophen 1,000 mg in 100 mls @ 400 mls/hr 10/23/22 20:48 10/24/22 12:02 Ofirmev IV 10/26/22 20:47 Infused Q8H PRN Infusion Pain or Fever Levothyroxine Sodium 75 mcg 10/24/22 06:30 10/24/22 06:12 Levothyroxine Sodium 75 Mcg Tablet PO 11/23/22 06:29 Not Given DAILYBB JASON Miscellaneous 1 each 10/24/22 00:00 10/24/22 10:28 Cyclosporine [Restasis] 0.05 % - Order Awaiting Action N/A 11/23/22 00:00 Not Given QS JASON Multivitamins/Minerals 1 tab 10/23/22 21:00 10/23/22 21:34 Cerovite Adv Formula Tab PO 11/22/22 20:59 Not Given QPM JASON Senna/Docusate Sodium 2 tab 10/23/22 21:00 10/23/22 21:34 Docusate Sodium/Senna 50/8.6mg Tab PO 11/22/22 20:59 Not Given HS JASON NPO Date Last Intake of Fluids: 10/23/22 Time Last Intake of Fluids: 10:00 Last Intake of Fluids Comment: patient doesn't remember having anything here after admission Date Last Intake of Solids: 10/23/22 Time Last Intake of Solids: 10:00 Past Medical History Medical History (Updated 10/24/22 @ 12:59 by Fito Ryan DO) Bronchitis Generalized weakness Generalized weakness Shortness of breath Thyroid disease Past Family History Family History Other Family history non-contributory Past Surgical History Surgical History History of appendectomy Social History Smoking Status: Never smoker Do You Dip or Chew Tobacco: No Hx Alcohol Use: No Hx Substance Use: No substance use type: does not use Physical Exam Vital Signs Last Vital Signs Temp 98.4 F 10/24/22 12:38 Pulse 86 10/24/22 12:38 Resp 20 10/24/22 12:38 BP 179/77 H 10/24/22 12:38 Pulse Ox 99 10/24/22 12:38 O2 Del Method Room Air 10/24/22 12:38 Testing Laboratory Results 10/24/22 06:11 10/24/22 06:11 PT 11.3 Seconds (9.0-12.0) 10/24/22 06:11 INR 1.1 (0.9-1.1) 10/24/22 06:11 APTT 26.5 Seconds (21.0-31.0) 10/24/22 06:11 Hemoglobin A1c 5.5 % (4.5-5.6) 10/24/22 06:11 Urine Color Yellow 10/23/22 15:17 Urine Appearance Clear (Clear) 10/23/22 15:17 Urine pH 6.0 (4.5-7.5) 10/23/22 15:17 Ur Specific Elbert 1.018 (1.000-1.030) 10/23/22 15:17 Urine Protein Negative (Negative) 10/23/22 15:17 Urine Glucose (UA) Negative (Negative) 10/23/22 15:17 Urine Ketones Negative (Negative) 10/23/22 15:17 Urine Nitrite Positive (Negative) A 10/23/22 15:17 Ur Leukocyte Esterase 1+ (Negative) H 10/23/22 15:17 Urine WBC (Auto) 10-30 /hpf (0-5) H 10/23/22 15:17 Urine RBC (Auto) 0-4 /hpf (0-4) 10/23/22 15:17 U Hyaline Cast (Auto) 1-5 /lpf (0-5) 10/23/22 15:17 U Epithel Cells (Auto) 0-5 /lpf (0-5) 10/23/22 15:17 Urine Bacteria (Auto) 4+ (Negative) H 10/23/22 15:17 Blood Type A Positive 10/23/22 16:16 Antibody Screen NEGATIVE 10/23/22 16:16 10/23/22 15:17 Urine Culture - Preliminary Urine,Clean Catch Gram negative bacilli Electrocardiogram Date: 10/23/22 Findings: + NSR @
--- NOTE | 2022-10-24 13:04 | Hospitalist Progress Note ---
Date of Service October 24, 2022 Assessment & Plan (1) Hip fracture, right: Plan: Hip fracture 2/2 ground-level fall without head injury in the setting of UTI - Orthopedics consulted, for OR 10/[address] Mcintosh - MARYANN in preparation for OR - DVT ppx with Lovenox to start pod#1 - PT/OT eval - Pain control - currently ordered with APAP and Dilaudid, utilize APAP first - Incentive spirometer use for atelectasis/pna prevention (2) UTI (urinary tract infection): Plan: Received empiric Rocephin, continued. Follow cultures Patient Bactrim allergic, otherwise no antibiotic allergies Blood cultures pending - Urine culture prelim with GNB - Maintain sidhu until pod#1 (3) Thyroid disease: Plan: Continue Synthroid Plan For OR today. Reviewed CBC and BMP. Repeat labs in AM. Plan to be d/w Dr. Harvey. Admission and Anticipated Discharge Date Admission Date: October 23, 2022 Subjective Patient was seen on daily rounds this morning. Physical Exam Physical Exam: GENERAL: 87 yo F wd/wn. Awake, alert. NAD. LUNGS: Clear to auscultation bilaterally. CARDIOVASCULAR: Regular rate and rhythm. EXTREMITIES: RLE NV intact Results & Data Results & Data ([facility]) Vital Signs (Past 12 Hours) Vital Signs Temp Pulse Pulse Resp BP Pulse Ox O2 Del Method 10/24/22 12:38 36.9 C 86 20 179/77 H 99 Room Air 10/24/22 11:28 37.1 C 80 20 159/74 H 98 Room Air 10/24/22 08:22 36.8 C 80 16 140/76 Laboratory Results 10/24/22 06:11 10/24/22 06:11 PG Care Time/CCT Total # of Minutes Spent Total Time Spent with Patient: Total time spent is greater than 50% in coordination of care (as documented) at patient's floor/unit and/or counseling patient: Coding Level of Care Code 16898 SUB INP/OBS CARE 2/35MIN Diagnoses Hip fracture, right S72.001A UTI (urinary tract infection) N39.0 Thyroid disease E07.9
[2022-10-24] MEDS: ceFAZolin 1000MG 1,000 MG/7.5 ML SYR IV STA ×2 (13:33→18:09)
[2022-10-24] MEDS ORDERED: SODIUM CHLORIDE 0.9% INJ 10 ML VIAL ONE (13:51)
[2022-10-24] MEDS ORDERED: PHENYLEPHRINE HCL 10 MG/ML VIAL ONE (13:51)
[2022-10-24] MEDS ORDERED: ePHEDrine sulfate 50 MG/ML AMP ONE (13:51)
--- NOTE | 2022-10-24 15:02 | Operative Report ---
PG Post Operative Report Pre & Post Diagnosis Operation Date: 10/24/22 11:00 Pre-Op Diagnosis: Right displaced intertrochanteric hip fracture Post-Op Diagnosis: Right displaced intertrochanteric hip fracture I identified the patient and participated in the time-out.: Yes Procedure Operation Date: 10/24/22 11:00 Actual Procedures p Right Long Troch Nail(Right) - William Mcintosh MD Surgeon William Mcintosh MD Physical Therapy Aid None Estimated Blood Loss 50 Findings Consistent with Post-Op Diagnosis Specimens None Anesthesia Type General Complications none Disposition Accompanied Patient To Recovery: No Indications Patient is an 87-year-old elderly female who sustained a fall yesterday. She had cute onset of pain was unable to ambulate afterwards. She brought the emergency room where x-rays were displaced intertrochanteric hip fracture. Patient was admitted to the hospital service, medically optimized and indicated for surgical repair. Description of Procedure Operative implants consist of: 1 Synthes right 340 mm x 11 mm long trochanteric nail. 2. 85 mm helical blade. 3. 40 mm x 5 mm distal interlocking screw. The patient was taken to the operating, identified, placed on the operating table supine position protectors were properly padded. IV antibiotics tried by anesthesia team. General anesthetic was implemented. The patient was then placed on the fracture table. The patient's right leg was placed in boot traction the left leg was placed in a well leg hernández. I applied some longitudinal traction to the foot and internally rotated the foot. We brought x-ray in. I had to make some adjustments to this as it was displaced fracture. Ended up have to externally rotate the foot somewhat in order to alignment on the lateral. The right hip and leg was then scrubbed with Hibiclens, prepped with ChloraPrep and draped in usual sterile fashion. A curvilinear incision was made just proximal to the tip of the trochanter. Sharp dissection was carried through subcutaneous tissue down to level the IT band gluteal fascia the IT band gluteal fascia incised longitudinally in line with the skin incision. Acute guidewire was placed just lateral to the tip of the trochanter and aligned to the intramedullary canal both the AP and lateral planes. It was advanced down the femur. It was overreamed with a larger reamer. This guidewire was removed and a ball-tipped guidewire was placed down the femoral canal. We measured for nail length and 340 mm nail was selected. I then overreamed the guidewire with the 12.5 mm reamer. A 340 mm x 11 mm right long trochanteric nail was then placed over the guidewire and tapped in position. A lateral aiming arm was attached. Stab incision was made. A guidewire was placed in the central aspect of the femoral head neck in both the AP and lateral planes. It was measured an 85 mm helical blade was selected. The cortical step drill was used to breach the cortex and the triple reamer was set at 85. I then adjusted to 90 to let the helical blade going a little bit further. I then placed a helical blade. We did compress the fracture site and advanced the helical blade just slightly further. I then tightened the proximal setscrew. The lateral aiming arm was removed and final x-rays were obtained. Attention drawn toward distal interlocking. Using the perfect false pass technique at distal interlocking screw was placed through the dynamic hole with the distal aspect to allow some compression. A stab incision was made. The drill was used and the interlocking screw was placed. Some final x-rays were obtained. Attention drawn toward closing. The wounds irrigated cosigns of irrigation. I injected locally with 30 cc of half percent Marcaine with epinephrine. The IT band was then closed with #1 V icryl suture in a running fashion for the deep tissues were then closed with #1 Vicryl suture in buried interrupted fashion the skin incisions of all incision sites were closed with 2-0 Dexon suture in a buried interrupted fashion. The skin was closed skin nadya. Leg was then cleaned and dried and sterile dressing was Xeroform, 4 x 4's, ABD pad, foam tape was applied. The patient was then taken off the fracture table and placed on the transport bed. She was brought out of general anesthesia and transferred to the recovery room in stable condition. Patient tolerated procedure well and there were no complications. I attest to the content of the Intraoperative Record and any orders documented therein. Any exceptions are noted below.
--- NOTE | 2022-10-24 15:24 | Fluoroscopy Report ---
FL hip RT 2-3V CLINICAL HISTORY: RT LONG TROCH NAIL TECHNIQUE: 4 views were obtained with the C-arm in the OR with the above procedure. Total fluoroscopy time was 115.1 seconds. Radiation dose was 16.53 mGy. Comparison: Right hip radiograph 10/23/2022 FINDINGS/IMPRESSION: Intraoperative images were obtained of right trochanteric nail placement. Please correlate with intraoperative fluoroscopy and operative report. ACT 112: Negative or not required by law. Electronically signed by: Jaime James M.D. 10/24/2022 3:22 PM
--- NOTE | 2022-10-24 15:37 | Anesthesiology Progress Note ---
Date of Service October 24, 2022 Anesthesia Post Procedure Vital Signs Vital Signs: Temp Pulse Pulse Pulse Pulse Resp BP 10/24/22 15:15 79 22 10/24/22 15:05 97.2 F L 86 23 10/24/22 14:55 97.2 F L 100 H 12 10/24/22 12:38 98.4 F 86 20 10/24/22 11:28 98.8 F 80 20 10/24/22 08:22 98.2 F 80 16 10/23/22 20:36 100.0 F H 87 20 10/23/22 19:43 90 19 165/80 H 10/23/22 15:47 93 H BP Pulse Ox O2 Del Method O2 Flow Rate 10/24/22 15:15 152/68 H 100 Oxymask 5 10/24/22 15:05 170/70 H 100 Oxymask 7 10/24/22 14:55 165/80 H 100 Oxymask 9 10/24/22 12:38 179/77 H 99 Room Air 10/24/22 11:28 159/74 H 98 Room Air 10/24/22 08:22 140/76 10/23/22 20:36 181/70 H 97 Room Air 10/23/22 19:43 97 Room Air 10/23/22 15:47 Pain Intensity Right Hip: Pain Intensity: 5 Back: Pain Intensity: 4 Transfer of Care Handoff Completed per policy Notes Mental Status: alert / awake / arousable and participated in evaluation Patient Amnestic to Procedure: Yes Nausea / Vomiting: adequately controlled Pain: adequately controlled Airway Patency, RR, SpO2: stable & adequate BP & HR: stable & adequate Hydration State: stable & adequate Anesthetic Complications: no major complications apparent and Pt Satisfied with anesthetic care
[2022-10-24] MEDS: cefTRIAXone SODIUM 1,000 MG in DEXTROSE 5% AD-VAN 50 ML IV SCH (18:10)
[2022-10-24] MEDS: NORMOSOL-R 1,000 ML IV SCH (19:03)
[2022-10-24] MEDS: DOCUSATE SODIUM/SENNA 50/8.6MG TAB PO SCH (20:20)
[2022-10-24] MEDS: BIMATOPROST 0.01% OP SOLN 2.5 ML BTL OP SCH (20:20)
[2022-10-24] MEDS: ASPIRIN 81 MG ECTAB PO SCH (20:20)
[2022-10-24] MEDS: CEROVITE ADV FORMULA TAB PO SCH (20:20)
[2022-10-24] MEDS: ceFAZolin 1000MG 1,000 MG/7.5 ML SYR IV SCH (20:41)
[2022-10-24] MEDS ORDERED: OLANZapine 10 MG/2.1 ML SDV IM PRN (22:07)
[2022-10-24] MEDS: HYDROmorphone INJ 0.5 MG/0.5 ML SYR IV PRN (22:31)
[2022-10-25] MEDS: HYDROmorphone INJ 0.5 MG/0.5 ML SYR IV PRN ×2 (04:23→07:06)
[2022-10-25] MEDS: ceFAZolin 1000MG 1,000 MG/7.5 ML SYR IV SCH (04:32)
--- NOTE | 2022-10-25 05:10 | Electrocardiogram Report ---
Test Reason : Blood Pressure : / mmHG Vent. Rate : 093 BPM Atrial Rate : 093 BPM P-R Int : 158 ms QRS Dur : 070 ms QT Int : 360 ms P-R-T Axes : 052 -24 078 degrees QTc Int : 447 ms Normal sinus rhythm Possible Left atrial enlargement Borderline ECG When compared with ECG of 14-JUL-2019 16:25, No significant change was found Confirmed by Chris Jeff ([id number]) on 10/25/2022 5:10:24 AM Referred By: REFERRED SELF Confirmed By:Chris Jeff
[2022-10-25] MEDS: LEVOTHYROXINE SODIUM 75 MCG TABLET PO SCH (05:30)
[2022-10-25] MEDS: ASPIRIN 81 MG ECTAB PO SCH ×2 (07:17→20:38)
[2022-10-25] MEDS ORDERED: HYDROmorphone INJ 0.5 MG/0.5 ML SYR IV STA (08:06)
[2022-10-25 08:13] LABS: Basophils # (auto) 0.02 K/uL (0-0.2); Basophils % (auto) 0.1 %; Hematocrit (blood only) 37.1 % (37.0-47.0); Hemoglobin 12.3 g/dl (12.0-16.0); Immature Granulocytes # (auto) 0.04 K/uL (0.01-0.20); Immature Granulocytes % (auto) 0.3 %; Lymphocytes # (auto) 0.52 K/uL (1.2-3.4); Lymphocytes % (auto) 3.5 %; Mean Corpuscular Hemoglobin 30.4 pg (25.0-34.0); Mean Corpuscular Hgb Conc 33.2 g/dL (32.0-36.0); Mean Corpuscular Volume 91.8 fL (80.0-100.0); Mean Platelet Volume 11.7 fL (9.4-12.4); Monocytes # (auto) 1.63 K/uL (0.11-0.59); Neutrophils # (auto) 12.65 K/uL (1.40-6.50); Neutrophils % (auto) 85.1 %; Platelet Count 196 K/uL (130-400); RDW Coefficient of Variation 13.3 % (11.5-14.5); RDW Standard Deviation 45.6 fL (36.4-46.3); Red Blood Count 4.04 M/uL (4.20-5.40); White Blood Count 14.86 K/ul (4.8-10.8)
[2022-10-25 08:28] LABS: Calcium 9.5 mg/dl (8.5-10.1); Creatinine Clr Calc Pharmacy 27.5 ml/min; Est GFR (African American) 49.4 ml/min; Est GFR (Non-African American) 42.6 ml/min; Potassium 3.5 mmol/L (3.5-5.1)
[2022-10-25] MEDS ORDERED: ENOXAPARIN INJ 40 MG/0.4 ML SYR SQ SCH (09:00)
[2022-10-25] MEDS: ACETAMINOPHEN 1,000 MG/100 ML VIAL IV PRN (09:49)
--- NOTE | 2022-10-25 10:37 | Electrocardiogram Report ---
Test Reason : Blood Pressure : / mmHG Vent. Rate : 129 BPM Atrial Rate : 129 BPM P-R Int : 144 ms QRS Dur : 066 ms QT Int : 258 ms P-R-T Axes : 063 033 086 degrees QTc Int : 377 ms Poor data quality, interpretation may be adversely affected Sinus tachycardia Abnormal ECG When compared with ECG of 23-OCT-2022 14:30, HR has increased by 36 bpm Otherwise no significant change Confirmed by Nelson Crum ([id number]) on 10/25/2022 10:36:49 AM Referred By: REFERRED SELF Confirmed By:Nelson Crum
[2022-10-25] MEDS ORDERED: traMADol HCL 50 MG TABLET PO PRN (12:55)
--- NOTE | 2022-10-25 13:14 | Hospitalist Progress Note ---
Date of Service October 25, 2022 Assessment & Plan (1) Hip fracture, right: Plan: Acute Hip fracture 2/2 ground-level fall without head injury in the setting of UTI - Orthopedics consulted, for OR 3/ with Dr. Mcintosh - NPO in preparation for OR - DVT ppx with Lovenox ordered and stopped by Dr. Mcintosh and changed to ASA 81mg BID - PT/OT eval to be completed today - anticipate she will require rehab - Pain control - APAP, Tramadol, and Dilaudid for breakthrough - Incentive spirometer use for atelectasis/pna prevention - Reviewed CBC, mild elevation in WBC felt to be reactive, repeat tomorrow AM (2) UTI (urinary tract infection): Plan: acute Received empiric Rocephin, continued. Urine cx ordered. Patient Bactrim allergic, otherwise no antibiotic allergies Blood cultures NGTD - Urine culture = pansensitive E. coli - Remove sidhu (3) Thyroid disease: Plan: Continue Synthroid - Check TSH (4) Tachycardia: Plan: acute - Check TSH d/t tachycardia - Low suspicion of PE, no shortness of breath or cp/cough - However, if remains persistently tachycardic will obtain a CTA to exclude - Suspect probably pain driven - will monitor Plan Suspect she also has cognitive impairment, however, nothing documented in chart and last PCP note I can find in system is from 2019 and nothing documented at that time. Presently not taking any dementia medications. Had some agitation overnight for which she had to be medicated with Zyprexa which would also be consistent with acute delirium with underlying dementia in setting of recent surgery and being in the hospital. Discussed this afternoon with patient's da ughter and who confirmed that she does have dementia as suspected. PT/OT recommending rehab. Case management to assist in dc planning (d/w Celeste Naqvi RN). Plan to be d/w Dr. Harvey. Admission and Anticipated Discharge Date Admission Date: October 23, 2022 Subjective Patient seen on rounds. Currently sitting up in bedside chair. No complaints. Notified promptly at 0700 that pt's HR was in the 130s. Medicated for pain and HR improved to 90s. Physical Exam Physical Exam: GENERAL: 87 yo F wd/wn. Awake, alert. NAD. LUNGS: Clear to auscultation bilaterally. CARDIOVASCULAR: Regular rate and rhythm. EXTREMITIES: RLE NV intact. Incision dressed w/o shadowing Results & Data Results & Data ([facility]) Vital Signs (Past 12 Hours) Vital Signs Temp Pulse Resp BP Pulse Ox O2 Del Method 10/25/22 10:30 98 H 10/25/22 07:58 36.9 C 120 H 20 136/73 96 Room Air 10/25/22 07:02 37 C 135 H 20 152/66 H 95 Room Air 10/25/22 02:16 36.7 C 89 16 109/62 96 Room Air Laboratory Results 10/25/22 07:50 10/25/22 07:50 ECG Additional Comments: EKG - Sinus tach PG Care Time/CCT Total # of Minutes Spent Total Time Spent with Patient: Total time spent is greater than 50% in coordination of care (as documented) at patient's floor/unit and/or counseling patient: Coding Level of Care Code 33055 SUB INP/OBS CARE 3/50MIN Diagnoses Hip fracture, right S72.001A UTI (urinary tract infection) N39.0 Thyroid disease E07.9 Tachycardia R00.0
[2022-10-25] MEDS: cefTRIAXone SODIUM 1,000 MG in DEXTROSE 5% AD-VAN 50 ML IV SCH (16:10)
[2022-10-25] MEDS: traMADol HCL 50 MG TABLET PO PRN (17:30)
--- NOTE | 2022-10-25 18:37 | Progress Notes ---
SUBJECTIVE: An 87-year-old female postoperative day 1 from IM nailing of a right intertrochanteric f racture. She is doing pretty well. She is sitting up in bed and looks comfortable. She is talking to her daughter. OBJECTIVE: VITAL SIGNS: Temperature is 36.6. Vital signs are stable. GENERAL: Shows a pleasant, elderly female. She is sitting up and eating dinner and looks quite comf ortable. EXTREMITIES: Examination of the right hip reveals the dressing to be clean, dry and intact. Leg jeff gth was equal. She can dorsiflex and plantarflex her foot appropriately. She is neurologically inta ct. LABORATORY DATA: Hemoglobin 12.3. Hematocrit 37.1. Electrolytes are stable. ASSESSMENT: An 87-year-old white female postoperative day 1 from IM nailing of the right intertrocha nteric fracture, doing well. Pain is controlled. She is neurologically intact. PLAN: 1. DVT prophylaxis includes thigh-high TEDs, SCDs, and aspirin twice a day. 2. PT/OT. She can fully weightbear on this right leg. No particular restrictions. 3. Pain control doing okay with current pain regimen. I Tylenol as much as possible and limit narcotics to avoid confusion. 4. Medical management as per the medicine service. She is currently being treated for UTI. 5. Disposition: She is orthopedically okay for discharge any time medically stable. I need to see her back two to three weeks out from surgery date. Any orthopedic questions can be directed to me at [phone]. Job ID: [id number]
[2022-10-25] MEDS: ACETAMINOPHEN 500 MG TAB PO PRN (20:37)
[2022-10-25] MEDS: DOCUSATE SODIUM/SENNA 50/8.6MG TAB PO SCH (20:39)
[2022-10-25] MEDS: CEROVITE ADV FORMULA TAB PO SCH (20:39)
[2022-10-25] MEDS: BIMATOPROST 0.01% OP SOLN 2.5 ML BTL OP SCH (20:39)
[2022-10-26] MEDS: LEVOTHYROXINE SODIUM 75 MCG TABLET PO SCH (06:34)
[2022-10-26] MEDS: ACETAMINOPHEN 500 MG TAB PO PRN ×2 (06:36→18:45)
--- NOTE | 2022-10-26 09:22 | Hospitalist Progress Note ---
Date of Service October 26, 2022 Assessment & Plan (1) Hip fracture, right: Plan: Acute Hip fracture 2/2 ground-level fall without head injury in the setting of UTI *Age-related osteoporosis w current pathological fracture, right femur Orthopedics consulted POD #2 s/p Right Long Troch Nail(Right) - William Mcintosh MD. EBL 50cc WBC normalized on repeat, afebrile (did get steroids w/ surgery) Hgb 12.3--> 10.4, acute blood loss anemia from surgery as well as dilutional from IVF Pain control prn -- APAP, tramadol, will d/c IV dilaudid and make oxycodone available mod/severe pain. ?if better benefit/pain control w/ oxycodone and will monitor (has tolerated several doses IV dilaudid, last dose 3/ and reporting pain getting better) Antiemetics prn Bowel regimen -- continue senna, add miralax. No abdominal pain +BS on exam but no documented BM in system and on pain control DVT prophylaxis -- ASA 81mg BID PT/OT consulted --> juniper when bed available Vit D 20.3-- start supplmentation and continue at d/c (2) UTI (urinary tract infection): Plan: acute UA appeared infected, urine cx -- ECOLI, pansensitive. Allergies to bactrim/nitro Blood cultures NGTD Removed sidhu, voiding since that time Switched to Cipro for today (got 2 days IV Rocephin) to complete course given no IV access currently and possible d/c later today. Complete 5-7 day course (3) Thyroid disease: Plan: Continue Synthroid TSH 0.647 (4) Tachycardia: Plan: acute TSH wnl, low sups for PE HRs improved w/ pain control, in 80-90s No CP/SOB reported (5) Vitamin D deficiency: Plan: checked due to fx low at 20.3, started supplementation for morning and would continue at d/c Plan Suspect she also has cognitive impairment, however, nothing documented in chart and last PCP note I can find in system is from 2019 and nothing documented at that time. Presently not taking any dementia medications. Had some agitation overnight 3/6-37 for which she had to be medicated with Zyprexa (also had been getting IV Dilaudid, which has been discontinued) which would also be consistent with acute delirium with underlying dementia in setting of recent surgery and being in the hospital. Discussed this afternoon with patient's daughter and who confirmed that she does have dementia as suspected. Mentation improved today and cooperative PT/OT recommending rehab. CM following -- awaiting insurance auth for [facility] once available Admission and Anticipated Discharge Date Admission Date: October 23, 2022 Subjective Patient evaluated this morning. Pain controlled with ordered medications. Getting cleaned up. Possible bed at [facility] later today, need to check w/ CM. Went through 3 IV sites, converting abx for UTI to PO -- pansensitive ecoli (allergies to sulfa/macrobid), can use FLQ and will switch to cipro for todays dose and to complete course as she received 2 doses IV inpatient thus far. Physical Exam Physical Exam: GENERAL: 87 yo F getting cleaned up/dressing changed in chair. WD/WN, alert/oriented LUNGS: Clear to auscultation bilaterally. CARDIOVASCULAR: Regular rate and rhythm. EXTREMITIES: RLE NV intact. Incision dressed w/o shadowing (just changed by nursing), pulses palpable, sensation intact Results & Data Results & Data ([facility]) Vital Signs (Past 12 Hours) Vital Signs Temp Pulse Resp BP Pulse Ox O2 Del Method 10/26/22 07:35 36.6 C 96 H 16 114/59 L 96 Room Air Laboratory Results 10/26/22 10/26/22 10/25/22 Range/Units 09:13 09:13 07:50 WBC 10.21 (4.8-10.8) K/ul RBC 3.44 L (4.20-5.40) M/uL Hgb 10.4 L (12.0-16.0) g/dl Hct 32.3 L (37.0-47.0) % MCV 93.9 (80.0-100.0) fL MCH 30.2 (25.0-34.0) pg MCHC 32.2 (32.0-36.0) g/dL RDW Std Deviation 47.2 H (36.4-46.3) fL RDW Coeff of Yuliana 13.9 (11.5-14.5) % Plt Count 181 (130-400) K/uL MPV 11.6 (9.4-12.4) fL Sodium 144 (136-145) mmol/L Potassium 3.9 (3.5-5.1) mmol/L Chloride 107 (98-107) mmol/L Carbon Dioxide 35 H (21-32) mmol/L Anion Gap 2 L (3-11) BUN 28 H (6-23) mg/dl Creatinine 1.18 (0.6-1.2) mg/dl Est Cr Clr Drug Dosing 27.1 ml/min Est GFR ( Amer) 48.4 ml/min Est GFR (Non-Af Amer) 41.7 ml/min BUN/Creatinine Ratio 23.7 H (10-20) Glucose 121 H (70-99(Fasting)) mg/dl Calcium 8.9 (8.5-10.1) mg/dl Magnesium 2.3 (1.7-2.4) mg/dl TSH 0.647 (0.300-4.500) uIu/ml PG Care Time/CCT Total # of Minutes Spent Total Time Spent with Patient: Total time spent is greater than 50% in coordination of care (as documented) at patient's floor/unit and/or counseling patient: Coding Level of Care Code 36249 SUB INP/OBS CARE 235MIN Diagnoses Hip fracture, right S72.001A UTI (urinary tract infection) N39.0 Thyroid disease E07.9 Tachycardia R00.0 Vitamin D deficiency E55.9
[2022-10-26] MEDS: ASPIRIN 81 MG ECTAB PO SCH ×2 (09:36→20:24)
[2022-10-26 09:47] LABS: Hematocrit (blood only) 32.3 % (37.0-47.0); Hemoglobin 10.4 g/dl (12.0-16.0); Mean Corpuscular Hemoglobin 30.2 pg (25.0-34.0); Mean Corpuscular Hgb Conc 32.2 g/dL (32.0-36.0); Mean Corpuscular Volume 93.9 fL (80.0-100.0); Mean Platelet Volume 11.6 fL (9.4-12.4); Platelet Count 181 K/uL (130-400); RDW Coefficient of Variation 13.9 % (11.5-14.5); RDW Standard Deviation 47.2 fL (36.4-46.3); Red Blood Count 3.44 M/uL (4.20-5.40); White Blood Count 10.21 K/ul (4.8-10.8)
[2022-10-26 10:02] LABS: BUN Creatinine Ratio 23.7 (10-20); Calcium 8.9 mg/dl (8.5-10.1); Creatinine Clr Calc Pharmacy 27.1 ml/min; Est GFR (African American) 48.4 ml/min; Est GFR (Non-African American) 41.7 ml/min; Magnesium 2.3 mg/dl (1.7-2.4); Potassium 3.9 mmol/L (3.5-5.1)
--- NOTE | 2022-10-26 13:26 | Progress Notes ---
DATE OF SERVICE: 10/26/2022 SUBJECTIVE: An 87-year-old female postoperative day 2 from IM nailing of a right intertrochanteric f racture. She is doing pretty well. Denies any significant pain this morning. OBJECTIVE: VITAL SIGNS: Temperature is 36.6. Vital signs are stable. PHYSICAL EXAMINATION: GENERAL: Physical exam shows a pleasant, thin, elderly female. She is lying in bed and looks quite good this morning. She looks comfortable. EXTREMITIES: Examination of the right hip and leg reveals the leg to be well aligned. Leg lengths a re equal. Dressing is clean, dry, and intact. No drainage. She is neurologically intact. LABORATORY DATA: Hemoglobin 10.4. Hematocrit 32.3. Electrolytes are stable. ASSESSMENT: An 87-year-old white female postoperative day 2 from IM nailing of a right intertrochant nicole fracture, doing well. Orthopedically, she is doing well. Pain is controlled. She is neurologi caro intact. PLAN: 1. DVT prophylaxis including thigh-high TEDs, SCDs, and a baby aspirin twice a day. 2. PT, OT, and weightbear as tolerated, right lower extremity. 3. Pain control, doing okay with current pain regimen. Try and limit narcotics to avoid confusion. 4. Disposition: Plan to discharge her to home likely with some home health once adequately recovere d and medically stable. Job ID: [id number]
[2022-10-26] MEDS ORDERED: oxyCODONE HCL IR 5 MG TAB (IMMEDIATE RELEASE) PO PRN (13:36)
[2022-10-26] MEDS: CIPROFLOXACIN 500 MG TAB PO SCH (15:14)
[2022-10-26] MEDS: POLYETHYLENE (MIRALAX) 17 GM PACK PO SCH (15:14)
[2022-10-26] MEDS ORDERED: bisacodyL 10 MG SUPP PR PRN (16:04)
[2022-10-26] MEDS: BIMATOPROST 0.01% OP SOLN 2.5 ML BTL OP SCH (20:23)
[2022-10-26] MEDS: CEROVITE ADV FORMULA TAB PO SCH (20:24)
[2022-10-26] MEDS: DOCUSATE SODIUM/SENNA 50/8.6MG TAB PO SCH (20:24)
[2022-10-27] MEDS: LEVOTHYROXINE SODIUM 75 MCG TABLET PO SCH (06:48)
[2022-10-27 07:47] LABS: BUN Creatinine Ratio 24.1 (10-20); Calcium 8.3 mg/dl (8.5-10.1); Creatinine Clr Calc Pharmacy 36.7 ml/min; Est GFR (African American) 69.9 ml/min; Est GFR (Non-African American) 60.3 ml/min; Potassium 4.1 mmol/L (3.5-5.1)
[2022-10-27 08:02] LABS: Hematocrit (blood only) 30.2 % (37.0-47.0); Hemoglobin 9.9 g/dl (12.0-16.0); Mean Corpuscular Hemoglobin 30.8 pg (25.0-34.0); Mean Corpuscular Hgb Conc 32.8 g/dL (32.0-36.0); Mean Corpuscular Volume 94.1 fL (80.0-100.0); Mean Platelet Volume 11.1 fL (9.4-12.4); Platelet Count 209 K/uL (130-400); RDW Coefficient of Variation 14.1 % (11.5-14.5); Red Blood Count 3.21 M/uL (4.20-5.40); White Blood Count 8.24 K/ul (4.8-10.8)
--- NOTE | 2022-10-27 08:06 | Progress Notes ---
SUBJECTIVE: An 87-year-old white female now postop day 3 from IM nailing of the right intertrochante genesis fracture. She is doing pretty well. She denies any pain this morning. OBJECTIVE: VITAL SIGNS: Temperature 37.2. Vital signs are stable. GENERAL: Shows a frail, thin, elderly female. Lying in bed, looks pretty comfortable. EXTREMITIES: Examination of the right hip reveals the dressing to be clean, dry, and intact. Thigh is soft and supple. Not much swelling. She is neurologically stable. ASSESSMENT: An 87-year-old white female postoperative day 3 from intramedullary nailing of the right intertrochanteric fracture. Orthopedically, she is doing fine. PLAN: 1. DVT prophylaxis includes thigh-high TEDs, SCDs, and we recommend a baby aspirin twice a day for 6 weeks. 2. PT/OT. She can fully weightbear on the right leg. 3. Pain control, doing okay with current pain regimen. Try and limit any narcotics to avoid confusi on. 4. Disposition: She is orthopedically okay for discharge any time medically stable. I need to see her back in 2-3 weeks from surgery date. Any orthopedic questions can be directed to me at . Job ID: [id number]
[2022-10-27] MEDS: CIPROFLOXACIN 500 MG TAB PO SCH (08:16)
[2022-10-27] MEDS: traMADol HCL 50 MG TABLET PO PRN (08:16)
[2022-10-27] MEDS: ASPIRIN 81 MG ECTAB PO SCH (08:16)
[2022-10-27] MEDS: POLYETHYLENE (MIRALAX) 17 GM PACK PO SCH (08:17)
--- NOTE | 2022-10-27 08:23 | Discharge Summary ---
Date of Service October 27, 2022 Admission HPI Per Admitting Provider Noemí is a 86-year-old female presents with a ground-level fall and generalized weakness at 10 AM. Patient initially declined transfer to hospital when her called EMS, however cannot ambulate and has been called and then transferred patient to the hospital by EMS. Patient is a poor historian, history is limited by cognitive status. History is taken with the assistance of her at the bedside. Patient is not oriented, frequently forgetful, and forgets that she has broken her hip several times during HPI. Her reports that she has been much more weak in the last day or 2. Has not complained of urinary symptoms, but has had similar weakness with UTIs in the past. This morning she was eating breakfast when he heard her cry and cereal at the floor, patient was found to have fallen. EMS was called but patient did not want to go to the hospital and declined initially. She was unable to get up off the ground and her was not able to help her and get her standing, EMS was called again and patient was brought to the ER for evaluation. She denies chest pain, chest pressure, lightheadedness, dizziness. She does endorse right hip pain when she tries to move. Denies numbness/tingling. No abdominal pain. Denies urinary frequency, dysuria. Per patient and her at bedside patient has no history of cardiac disease, no history of heart failure, no diabetes, no kidney disease, no lung disease. Has never been on insulin. Does not take any blood thinners. Takes eyedrops, and Synthroid. Otherwise has no chronic medical problems and takes no other medications. Is allergic to sulfa. No other medication allergies. Denies pertinent family history. Denies alcohol, tobacco, medical marijuana, recreational drug use. Has not had any reactions to anesthesia in the past. Admission Exam Per Admitting Provider General: Patient is oriented to name only. Tangential thought process, frequently forgetful. History is collected with assistance of her at bedside HEENT: Atraumatic, normocephalic. Pupils equal and reactive to light, vision and hearing grossly intact Pulm: CTAB A&P. -wheezes, -rales, -rhonchi. Symmetrical chest rise. No increased work of breathing. No respiratory distress. Cardiac: Tachycardic, improved following fluids. radial pulses intact and symmetrical. Abdominal: Nontender, nondistended, soft. BS present. Extremities: Right hip externally rotated, shortened. Tender to palpation at the lateral hip. Sensation of soft touch intact in feet bilaterally, PT pulse intact bilaterally, wiggles toes bilaterally. 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 Principal Diagnosis Hip Fracture, UTI Discharge Exam GENERAL: 87 yo F sitting up in chair eating breakfast, NAD WD/WN, alert/oriented HEENT: head normocephalic, atraumatic, mmm, trachea midline, no deviation LUNGS: Clear to auscultation bilaterally, 98% on RA CARDIOVASCULAR: Regular rate and rhythm, no pitting edema/calf tenderness, pulses palpable EXTREMITIES: RLE NV intact. Incision dressed w/o shadowing (just changed by nursing), pulses palpable, sensation intact PSYCH: Alert/oriented to person/place/event Discharge Data Allergies Allergy/AdvReac Type Severity Reaction Status Date / Time naproxen Allergy Severe SWELLING Verified 10/24/22 12:38 OF EYES, LIPS. 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 PRINTS AND DRAWINGS CURATOR side Verified 10/24/22 12:38 effects omeprazole [From Prilosec] AdvReac Intermediate Abdominal Verified 10/24/22 12:38 Pain risedronate sodium AdvReac Intermediate Aches and Verified 10/24/22 12:38 [From Actonel] gastrointestinal upset Consultations 10/23/22 15:28 ED Decision to Admit Stat 10/23/22 16:06 Consult Orthopedic Surgery Routine 10/23/22 20:29 Consult Orthopedic Surgery Routine Procedures Performed Operation Date: 10/24/22 11:00 Actual Procedures p Right Long Troch Nail(Right) - William Mcintosh MD Ordered Studies Head CT 10/23/22 14:21 CT head/brain wo con CLINICAL HISTORY: 86 years-old Female with Fall. Acute head trauma status post fall TECHNIQUE: Multiple axial CT images of the head were obtained without contrast. A dose lowering technique was utilized adhering to the principles of ALARA. COMPARISON: 04/20/2014 FINDINGS: No acute intracranial hemorrhage, midline shift, intracranial mass, hydrocephalus, territorial ischemia or abnormal extra-axial collection. Involutional changes with chronic microvascular ischemic disease. The calvarium is intact. Bilateral lens repair. The paranasal sinuses, mastoid air cells, and middle ear cavities are clear. IMPRESSION: No acute intracranial abnormality or calvarial fracture. ACT 112: Negative or not required by law. The above report was generated using voice recognition software. It may contain grammatical, syntax or spelling errors. Electronically signed by: Priyank Salamanca M.D. 10/23/2022 3:[address] 10/23/22 14:21 CT hip RT wo con HISTORY: 86 years-old Female fall, R hip pain . Acute right-sided hip pain status post fall COMPARISON: CT abdomen and pelvis 07/06/2019 TECHNIQUE: Multiple axial CT images of the right hip were obtained without the use of IV contrast. A dose lowering technique was used consistent with the principals of ALARA. FINDINGS: No acute intrapelvic abnormality. Colonic diverticulosis. There is an acute intertrochanteric comminuted mildly impacted fracture of the right femur with fracture fragments displaced up to 10 mm. Moderate right hip osteoarthritis. No additional acute fracture or dislocation. IMPRESSION: Acute acute mildly impacted and mildly displaced intertrochanteric fracture of the right femur. ACT 112: Negative or not required by law. The above report was generated using voice recognition software. It may contain grammatical, syntax or spelling errors. Electronically signed by: Priyank Salamanca M.D. 10/23/2022 3:12 PM Chest X-Ray 10/23/22 14:23 XR chest 1V portable HISTORY: 86 years-old Female fall acute chest trauma status post fall COMPARISON: 07/14/2019 TECHNIQUE: Supine AP view of the chest FINDINGS: Cardiomediastinal and hilar silhouettes are within normal limits. Unchanged mediastinal calcifications. No pneumothorax, pleural effusion, airspace consolidation or overt pulmonary edema. Bones appear grossly intact. IMPRESSION: No acute process. ACT 112: Negative or not required by law. The above report was generated using voice recognition software. It may contain grammatical, syntax or spelling errors. Electronically signed by: Priyank Salamanca M.D. 10/23/2022 3:33 PM Hip/Pelvis X-Ray 10/23/22 16:07 XR hip 1V RT w pelvis HISTORY: 86 years-old Female Hip Fracture acute right hip pain status post fall COMPARISON: CT right hip of same day TECHNIQUE: AP view the pelvis with crosstable lateral view of the right hip FINDINGS: Acute intertrochanteric fracture of the right femur demonstrates mild impaction with mild apex lateral angulation. Demineralized appearance of the bones. Moderate osteoarthritis of the hips. IMPRESSION: Unchanged alignment of the acute intertrochanteric fracture of the right femur. ACT 112: Negative or not required by law. The above report was generated using voice recognition software. It may contain grammatical, syntax or spelling errors. Electronically signed by: Priyank Salamanca M.D. 10/23/2022 4:47 PM Hip X-Ray 10/24/22 00:00 FL hip RT 2-3V CLINICAL HISTORY: RT LONG TROCH NAIL TECHNIQUE: 4 views were obtained with the C-arm in the OR with the above procedure. Total fluoroscopy time was 115.1 seconds. Radiation dose was 16.53 mGy. Comparison: Right hip radiograph 10/23/2022 FINDINGS/IMPRESSION: Intraoperative images were obtained of right trochanteric nail placement. Please correlate with intraoperative fluoroscopy and operative report. ACT 112: Negative or not required by law. Electronically signed by: Jaime James M.D. 10/24/2022 3:22 PM Chest X-Ray 10/27/22 07:22 SINGLE VIEW CHEST CLINICAL HISTORY: Fever. FINDINGS: An AP, portable, upright chest radiograph is compared to study dated 10/23/2022. The cardiomediastinal silhouette is unremarkable noting atherosclerotic calcification of the thoracic aorta. There are calcified mediastinal lymph nodes. Chronic interstitial thickening similar to previous. There are scattered calcified granulomas. The lungs and pleural spaces are otherwise clear. Apical scarring is observed. No pneumothorax is seen. The skeletal structures are osteopenic. The bony thorax is grossly intact. IMPRESSION: No active disease in the chest. ACT 112: Negative or not required by law. Electronically signed by: Catarino Narvaez M.D. 10/27/2022 9:55 AM Hospital Course (1) Hip fracture, right: Acute Hip fracture 2/2 ground-level fall without head injury in the setting of UTI *Age-related osteoporosis w current pathological fracture, right femur Orthopedics consulted s/p Right Long Troch Nail(Right) - William Mcintosh MD on 10/24. EBL 50cc WBC elevation post op likely from steroids, normalized on repeat. Low grade temp likely atelectasis Hgb stable, acute blood loss anemia from surgery, dilutional from IVF. No CP/SOB reported Vit D 20.3-- started supplementation and continue at d/c Pain control/bowel regimen DVT prophylaxis -- asa 81mg BID (2) UTI (urinary tract infection): acute UA appeared infected, urine cx -- ECOLI, pansensitive. Allergies to bactrim/nitro Blood cultures NGTD Removed sidhu, voiding since that time Switched to Cipro (got 2 days IV Rocephin) and planned to complete course at d/c with PO Ciprofloxacin (3) Thyroid disease: Continued Synthroid TSH 0.647 (4) Tachycardia: acute TSH wnl, low sups for PE HRs improved w/ pain control and stable without CP/SOB reported -- states pain improving (5) Vitamin D deficiency: checked due to fx low at 20.3, started supplementation and continued at discharge Plan PT/OT consulted -- [place] for rehab arranged outpt f/u orthopedics Total Time Total Time Spent Total Time Spent (In Minutes): 45 Discharge Plan Discharge Items Patient Disposition: Transfer [facility] Reason For Visit: HIP FXR Discharge Diagnosis: IM Nail for Right Hip Fracture Goals: You have been hospitalized for an urgent problem which required surgery. During your stay at [facility], we have made an effort to correct the problem that brought you to the hospital while keeping you as comfortable as possible. Surgery and medications were used to bring your condition under control and your discharge instructions will include directions for any medicati ons you should take after leaving the hospital. Please make sure to follow the advice of your surgeon regarding follow up with the surgeon and with your primary care provider. Activity: Per Instructions section Weightbearing: Full weightbearing Non-emergency contact: Primary Care Provider and Surgeon Call non-emergency contact if: you have any medication questions, your symptoms worsen, your pain is concerning for you and you have a fever Follow-up/Referrals: Artemio Rodriguez MD [Primary Care Provider] - William Mcintosh MD [Physician] - (Orthopedic follow-up 2-3 weeks from surgery date.) Diet: Regular Addtl Attending Provider Instructions: You have been hospitalized after a fall and found to have an acute fracture of your right hip. You were also found to have evidence for a urinary tract infection. Orthopedics was consulted, Dr Mcintosh, and you underwent surgical repair. Your vitamin D level was low and we started replacement to help with bone health. You should remain on aspirin 81mg by mouth twice daily for blood clot prevention. You can continue pain control with Tylenol and tramadol as needed as these have been effective while in the hospital. You should continue senna/docusate to help with moving your bowels and can use miralax if needed if not moving them at least every other day to prevent constipation. You will need follow up with Dr Mcintosh in two weeks to monitor your progress after surgery. Therapy evaluations were undertaken, and rehab has been arranged at [facility]. You were given IV antibiotics for UTI and have been switched to Ciprofloxacin to complete your course. You have 2 days left to complete a five day course which should be sufficient given you got IV antibiotics to start. Please follow up with primary care in the next 7-10 days to monitor your progress after hospitalization. Please return to the emergency department with any worsening pain, fever, chest pain, shortness of breath, or for any other symptoms concerning for you. It has been a pleasure being a part of the medical team providing for you while you have been in the hospital. Take care! 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 May fully weightbear as tolerated Pending Studies at Discharge: Yes Studies:: Blood cultures -- no growth to date Stand-Alone Forms: My [facility] Skilled Items Patient informed of condition?: Yes DNR: No Discharge Level of Care: Skilled Communicable Disease: No Discharge Prognosis: Stable Lines: None Urinary Catheter: No Medications and DC Order Prescriptions: New ciprofloxacin HCl 500 mg Tablet 500 mg PO DAILY Qty: 2 0RF acetaminophen [Tylenol Extra Strength] 500 mg Tablet 1,000 mg PO TID PRN (Reason: fever or pain) Qty: 30 0RF aspirin 81 mg Tablet,Delayed Release (Dr/Ec) 81 mg PO BID 42 Days Qty: 84 0RF tramadol 50 mg Tablet 50 mg PO Q4H PRN (Reason: pain) Qty: 14 0RF Rx Instructions: 1-2 tablets as needed for pain sennosides-docusate sodium [Senokot-S] 8.6-50 mg Tablet 2 tab PO HS Qty: 30 0RF cholecalciferol (vitamin D3) [Vitamin D3] 25 mcg (1,000 unit) capsule 3,000 unit PO DAILY 30 Days Qty: 90 0RF Continued levothyroxine 75 mcg tablet 75 mcg PO QAM cyclosporine [Restasis] 0.05 % Dropperette 1 drp OPB DAILY PRN (Reason: Dry Eyes) Lumigan 0.01 % Drops 1 drp OPB QPM Centrum Silver 0.4-300-250 mg-mcg-mcg Tablet 1 tab PO QPM Discharge Orders: Discharge Order (Routine); Ordered 10/27/22 Ordered By: Yaneth Roy Admission Data Admit Date/Time: 10/23/22 15:50 Attending Provider: Ernesto Moss Admit Provider: Miguel Mayfield Primary Care Provider: Artemio Rodriguez Other Providers: William Mcintosh ; Damion Grimes [facility] ; Miguel Mayfield Other Interventions: Discharge Summary Assessment (RN) Last Done: 10/27/22 10:31 Supervising Physician Co-Signing Physician Notes The patient was seen by me. The chart was reviewed. Case discussed with ENRIQUE Bryson. The patient is medically stable for discharge Coding Level of Care Code 61939 INP/OBS DISCH >30 MIN Diagnoses Hip fracture, right S72.001A UTI (urinary tract infection) N39.0 Thyroid disease E07.9 Tachycardia R00.0 Vitamin D deficiency E55.9
[2022-10-27] MEDS ORDERED: CHOLECALCIFEROL 1,000 UNITS 25 MCG TAB PO SCH (09:00)
--- NOTE | 2022-10-27 09:57 | XRay Report ---
SINGLE VIEW CHEST CLINICAL HISTORY: Fever. FINDINGS: An AP, portable, upright chest radiograph is compared to study dated 10/23/2022. The cardiome diastinal silhouette is unremarkable noting atherosclerotic calcification of the thoracic aorta. Ther e are calcified mediastinal lymph nodes. Chronic interstitial thickening similar to previous. There a re scattered calcified granulomas. The lungs and pleural spaces are otherwise clear. Apical scarring is observed. No pneumothorax is seen. The skeletal structures are osteopenic. The bony thorax is aidee sly intact. IMPRESSION: No active disease in the chest. ACT 112: Negative or not required by law. Electronically signed by: Catarino Narvaez M.D. 10/27/2022 9:55 AM
== END 2022-10-27 11:18 | DRG 481 ==
LOC: ED 14:15 → 3E 15:50 → SUATTDRO 15:50 → 3E 19:43
DX: Z79.890 Hormone replacement therapy; N39.0 Urinary tract infection, site not specified; E07.9 Disorder of thyroid, unspecified; Z88.7 Allergy status to serum and vaccine; Y92.019 Unspecified place in single-family (private) house as the place of occurrence of the external cause; M80.051A Age-related osteoporosis with current pathological fracture, right femur, initial encounter for fracture; Z88.2 Allergy status to sulfonamides; D62 Acute posthemorrhagic anemia; W18.39XA Other fall on same level, initial encounter; Z88.6 Allergy status to analgesic agent

== ENCOUNTER 2025-03-31 03:51 | Inpatient (IN) ==
[2025-03-31] MEDS: ONDANSETRON INJ 2 MG/ML 2 ML VIAL ONE ×2 (04:17→09:35)
[2025-03-31 04:52] LABS: Hematocrit (blood only) 40.9 % (37.0-47.0); Hemoglobin 13.5 g/dl (12.0-16.0); Immature Granulocytes # (auto) 0.04 K/uL (0.01-0.20); Immature Granulocytes % (auto) 0.3 %; Mean Corpuscular Hemoglobin 30.5 pg (25.0-34.0); Mean Corpuscular Volume 92.3 fL (80.0-100.0); Platelet Count 282 K/uL (130-400); RDW Standard Deviation 48.0 fL (36.4-46.3); Red Blood Count 4.43 M/uL (4.20-5.40); White Blood Count 11.87 K/ul (4.8-10.8)
[2025-03-31 05:12] LABS: Alanine Aminotransferase 14.0 U/L (7-52); Albumin Globulin Ratio 1.2 (0.9-2); Alkaline Phosphatase 87.0 U/L (34-104); Anion Gap 9.0 (3-11); Bilirubin,Total 0.4 mg/dl (0.2-1.0); Blood Urea Nitrogen 19.0 mg/dl (6-23); Calcium 9.3 mg/dl (8.6-10.3); Carbon Dioxide 27.0 mmol/L (21-32); Chloride 103.0 mmol/L (98-107); Creatinine Clr Calc Pharmacy 27.0 ml/min; Globulin 3.4 gm/dl (2.5-4.0); Glucose 174.0 mg/dl (70-99(Fasting)); Lipase 12.0 U/L (11-82); Potassium 4.2 mmol/L (3.5-5.1); Sodium 139.0 mmol/L (136-145); Total Protein 7.4 gm/dl (6.0-8.3)
--- NOTE | 2025-03-31 05:23 | XRay Report ---
EXAM: XR chest 1V portable CLINICAL HISTORY: Chest pain, nonspecific TECHNIQUE: An X-ray image of the chest is obtained in AP projection. COMPARISON: No prior studies are available for comparison. FINDINGS: Pulmonary Parenchyma: Faint right lower opacity noted, could be infection, clinical correlation is needed. Bilateral prominent pulmonary interstitial lines and basal small atelectasis. could be senile changes. Blunting of both costophrenic angles, likely pleural thickening. No evidence of consolidation. No pulmonary nodules are identified. Heart and Mediastinum: Heart size and shape are normal. No mediastinal widening or masses. No hilar or mediastinal lymphadenopathy. Aortic atherosclerotic calcifications. Bony Thorax: Bony thorax appears intact without fractures or deformities. Soft Tissues: Soft tissues overlying the chest wall are unremarkable. IMPRESSION: No acute cardiopulmonary abnormalities are identified. Faint right lower opacity noted, could be infection, clinical correlation is needed. Bilateral prominent pulmonary interstitial lines and basal small atelectasis. could be senile changes/residual of old infection. Blunting of both costophrenic angles, likely pleural thickening. Electronically signed by Lalo Greco 03-31-2025 05:22 AM
[2025-03-31] MEDS: NITROGLYCERIN SL 0.4 MG/TAB TAB ONE (08:03)
--- NOTE | 2025-03-31 08:19 | History & Physical Report ---
Date of Service March 31, 2025 Assessment & Plan (1) STEMI (ST elevation myocardial infarction): (2) Acute respiratory failure with hypoxia: Plan 89 year old female with dementia presents to the ER with chest pain and ST elevations in anterior leads. Also had vomiting episode. #STEMI Heart alert called in the ER - discussed with Dr Barrett at bedside with plan to take her to the [facility] ASA reportedly given by EMS Will defer post cardiac cath treatment at this time to cardiology #Acute hypoxic respiratory failure ?pulmonary edema ?aspiration pneumonitis Doubtful pneumonia with sudden onset, will defer further antibiotics #Dementia On no specific medications for this. Unable to obtain baseline at time of admission VTE Prophylaxis - deferred to ICU team dependant on mobility s/p cardiac cath Disposition - admit to ICU Admission and Anticipated Discharge Date Admission Date: March 31, 2025 History of Present Illness Chief Complaint: Chest pain, vomiting Primary Care Provider: Artemio Rodriguez MD Noemí Stack is an 89 year old female who presents to the ER from [facility] after being found in another patient's room having vomited and complaining of chest pain. Patient has underlying dementia and cannot remember what happened or give me any history. She can tell me she has chest pain and points to her sternum, tells me this is mild but cannot give me a severity number or any additional features of the pain. Initial EKG per EMS was concerning for ST elevation in anterior leads however this appeared to improve on EKG in the ER and she was reportedly chest pain free. Per hand over she had aspirin in the ambulance. Shortly before I went to see her in the ER her chest pain had returned and repeat EKGs were concerning for ST elevation again in anterior leads therefore heart alert was called. RN tried calling the daughter who was with her but no answer. I tried calling her and also no answer. Patient discussed with Dr Diaz (ER Physician), Dr Barrett (food selector) and Dr Dugan (Mechanical Service Representative). RN called [facility] and she is listed as full code. Allergies Allergy/AdvReac Type Severity Reaction Status Date / Time naproxen Allergy Severe SWELLING Verified 10/24/22 12:38 OF EYES, LIPS. 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 BARREL RAISER HELPER side Verified 10/24/22 12:38 effects omeprazole [From Prilosec] AdvReac Intermediate Abdominal Verified 10/24/22 1 2:38 Pain risedronate sodium AdvReac Intermediate Aches and Verified 10/24/22 12:38 [From Actonel] gastrointestinal upset Home Medications Medication Instructions Recorded Confirmed Type bimatoprost 0.01 % eye drops 0 drp OPB QPM 08/18/18 03/31/25 History (Lumigan) cyclosporine 0.05 % eye drops in a 0 drp OPB DAILY PRN Dry Eyes 08/18/18 03/31/25 History dropperette (Restasis) levothyroxine 75 mcg tablet 75 mcg PO QAM 08/18/18 03/31/25 History bgyrkptj-apk-cgtoi acid 0.4 1 tab PO QPM 05/12/19 03/31/25 History mg-lycopene 300 mcg-lutein 250 mcg tablet (Centrum Silver) acetaminophen 500 mg tablet 1,000 mg (2 x 500 mg) PO TID PRN 10/26/22 03/31/25 Rx (Tylenol Extra Strength) fever or pain #30 tabs sennosides 8.6 mg-docusate sodium 2 tab PO HS #30 tabs 10/26/22 03/31/25 Rx 50 mg tablet (Senokot-S) latanoprost 0.005 % eye drops 1 drp ophthalmic (eye) HS 03/31/25 03/31/25 History tramadol 50 mg tablet 0 mg PO Q4H PRN pain 03/31/25 03/31/25 History Past Med/Surg History Problem List (Updated 04/01/25 @ 06:45 by Abdiaziz Alonso MD) Acute respiratory failure with hypoxia Aspiration pneumonia (Acute) ST elevation [place] (STEMI) (Acute) STEMI (ST elevation myocardial infarction) Vitamin D deficiency Tachycardia UTI (urinary tract infection) Closed hip fracture (Acute) Thyroid disease Generalized weakness (Acute) Generalized weakness (Acute) Shortness of breath Medical History (Updated 04/01/25 @ 06:45 by Abdiaziz Alonso MD) Hip fracture, right Family History Other Family history non-contributory Social History Smoking Status: Never smoker Second Hand Exposure: No; Hx Alcohol Use: No Hx Substance Use: No Preferred Language: Croatian Communication Ability: Effective Coater Operator Insulation Board Required: No Beliefs That Will Affect Care: None marital status: Current Living Situation: Personal Care Facility current occupational status: retired Feels Safe at Home: Yes Safety Concerns: Feels Safe At This Time Assistive Devices: None Review of Systems Review of Systems: All systems reviewed & are unremarkable except as noted in HPI & below Physical Exam Constitutional: WD/WN, vitals as above Respiratory: normal respiratory effort, lungs clear to auscultation Cardiovascular: RRR, no murmur, no edema Gastrointestinal (Abdomen): normal bowel sounds, soft, nontender, no hepatosplenomegaly Neurologic: moves all extremities, awake and + confused Psychiatric: Orientation: alert; + not oriented x 3 Results & Data Results & Data Vital Signs (Past 12 Hours) Vital Signs Pulse Pulse Resp BP BP Pulse Ox O2 Del Method 03/31/25 08:17 100 H 20 121/70 87 L Nasal Cannula 03/31/25 07:49 101 H 18 123/81 90 Nasal Cannula 03/31/25 06:00 96 H 24 120/86 92 Nasal Cannula 03/31/25 04:37 93 H 17 97 Nasal Cannula 03/31/25 04:17 94 H 18 142/95 H 96 Nasal Cannula 03/31/25 04:02 95 H 03/31/25 04:02 95 H 20 151/95 H 95 Nasal Cannula 03/31/25 04:01 94 Nasal Cannula O2 Flow Rate 03/31/25 08:17 6 03/31/25 07:49 2 03/31/25 06:00 03/31/25 04:37 2 03/31/25 04:17 2 03/31/25 04:02 03/31/25 04:02 2 03/31/25 04:01 2 Laboratory Results Abnormal lab results 03/31/25 03/31/25 Range/Units 04:00 06:25 WBC 11.87 H (4.8-10.8) K/ul RDW Std Deviation 48.0 H (36.4-46.3) fL Neut # (Auto) 9.19 H (1.40-6.50) K/uL Reynolds # (Auto) 0.72 H (0.11-0.59) K/uL Glucose 174 H (70-99(Fasting)) mg/dl Troponin I High Sens 126.9 H* 1414.2 H* D (0-14) pg/ml Diagnostic Findings XR chest 1V portable CLINICAL HISTORY: Chest pain, nonspecific TECHNIQUE: An X-ray image of the chest is obtained in AP projection. COMPARISON: No prior studies are available for comparison. FINDINGS: Pulmonary Parenchyma: Faint right lower opacity noted, could be infection, clinical correlation is needed. Bilateral prominent pulmonary interstitial lines and basal small atelectasis. could be senile changes. Blunting of both costophrenic angles, likely pleural thickening. No evidence of consolidation. No pulmonary nodules are identified. Heart and Mediastinum: Heart size and shape are normal. No mediastinal widening or masses. No hilar or mediastinal lymphadenopathy. Aortic atherosclerotic calcifications. Bony Thorax: Bony thorax appears intact without fractures or deformities. Soft Tissues: Soft tissues overlying the chest wall are unremarkable. IMPRESSION: No acute cardiopulmonary abnormalities are identified. Faint right lower opacity noted, could be infection, clinical correlation is needed. Bilateral prominent pulmonary interstitial lines and basal small atelectasis. could be senile changes/residual of old infection. Blunting of both costophrenic angles, likely pleural thickening. Medications Administered ER Medications Given: Ondansetron 4mg IV Unasyn 3g IV Nitroglycerin 0.4mg SL ECG Rate (beats per minute): 95 Rhythm: normal sinus Findings: + ST elevation (Anterior) Comparison ECG Date: from (October 25, 2022) Change: the following changes noted (ST elevations are new) Code Status & VTE Plan Code Status Full - per [facility] records VTE Prophylaxis Plan VTE Prophylaxis will be ordered: Yes PG Care Time/CCT Total # of Minutes Spent Total Time Spent with Patient: Total time spent is greater than 50% in coordination of care (as documented) at patient's floor/unit and/or counseling patient: Coding Level of Care Code 77454 INT INP/OBS CARE 3/75MIN Diagnoses STEMI (ST elevation myocardial infarction) I21.3 Acute respiratory failure with hypoxia J96.01
[2025-03-31] MEDS ORDERED: HEPARIN SOD (PORCINE) 1000 UNIT/ML IV ONE (08:30)
[2025-03-31 08:32] LABS: INR 1.0 (0.9-1.1); Partial Thromboplastin Time 27 Seconds (21-31); Prothrombin Time 10.6 Seconds (9.0-12.0)
[2025-03-31 08:55] LABS: Magnesium 2.4 mg/dl (1.7-2.4)
[2025-03-31] MEDS: niCARdipine 2,000 MCG/20 ML SYR ONE (08:59)
[2025-03-31] MEDS: NITROGLYCERIN/D5W 100MCG/ML 20ML SYR ONE (08:59)
--- NOTE | 2025-03-31 09:26 | Pre Anesthesia Assessment ---
Date of Service March 31, 2025 Pre Sedation Assessment Vital Signs Pulse Pulse Resp BP BP Pulse Ox O2 Del Method 03/31/25 08:17 100 H 20 121/70 87 L Nasal Cannula 03/31/25 08:16 121/70 03/31/25 08:00 97 H 26 H 132/87 92 03/31/25 07:49 101 H 18 123/81 90 Nasal Cannula 03/31/25 07:45 98 H 25 H 123/81 89 L 03/31/25 07:39 108 H 25 H 117/79 88 L 03/31/25 07:18 100 H 17 93 03/31/25 07:00 91 H 27 H 95 03/31/25 06:00 96 H 24 120/86 92 Nasal Cannula 03/31/25 04:37 93 H 17 97 Nasal Cannula 03/31/25 04:17 94 H 18 142/95 H 96 Nasal Cannula 03/31/25 04:02 95 H 03/31/25 04:02 95 H 20 151/95 H 95 Nasal Cannula 03/31/25 04:01 94 Nasal Cannula O2 Flow Rate 03/31/25 08:17 6 03/31/25 08:16 03/31/25 08:00 03/31/25 07:49 2 03/31/25 07:45 03/31/25 07:39 03/31/25 07:18 03/31/25 07:00 03/31/25 06:00 03/31/25 04:37 2 03/31/25 04:17 2 03/31/25 04:02 03/31/25 04:02 2 03/31/25 04:01 2 Cardiovascular + regular rate Respiratory + respiratory effort normal Pre-Sedation Airway Assessment Smoking Status: Unknown if ever smoked Thyromental Distance: > or= 3.5 Finger Breadths Oral Cavity: + Dental Abnormalities Mallampati Class: II ASA: ASA4 Procedure Planning Contraindications for Sedation: none Current Medications Reviewed: Yes Notes The planned sedation has been discussed with the patient. Informed Consent was obtained. I have identified the patient, determined the appropriateness of sedation and have assessed the patient immediately prior to the procedure. All medicine(s) and interventions are by my order.
[2025-03-31] MEDS: HEPARIN (PORCINE) 1000 UNIT/ML 10 ML (CATH LAB USE ONLY) ONE (09:33)
[2025-03-31] MEDS: MIDAZOLAM HCL 1 MG/ML 2ML VIAL ONE (09:34)
[2025-03-31] MEDS: OPTIRAY 350 ONE (09:34)
[2025-03-31] MEDS: FUROSEMIDE 40 MG/4 ML VIAL IV ONE (09:35)
[2025-03-31] MEDS: diphenhydrAMINE 50 MG/ML VIAL ONE (09:35)
[2025-03-31] MEDS: CLOPIDOGREL BISULFATE 300 MG TAB ONE (09:36)
--- NOTE | 2025-03-31 09:39 | Cardiology Consultation ---
Date of Consultation March 31, 2025 Assessment & Plan (1) STEMI (ST elevation myocardial infarction): Plan Presentation consistent with anterior STEMI. Care discussed with patient's family and she is full code and they request proceeding with aggressive intervention. Will plan to proceed with cardiac catheterization and likely primary PCI. Discussed risks, benefits, alternatives of procedure with patient's daughter Alisha. Further recommendations pending findings of coronary angiography. History of Present Illness History of Present Illness Mrs. Stack is an 89-year-old woman here with acute chest pain and ECG concerning for acute LA. Patient seen emergently in the ED after heart alert activated after serial ECGs showed anterior ST elevations. Patient with significant dementia at baseline and resides at [facility]. Per report from ER team she was found in another resident's room overnight complaining of crushing chest pain and had vomited. Initial ECG with EMS showed anterior ST elevations that had resolved upon arrival. HS TropI initially 126 trended up to 1400. Approximately 4 hours after arrival had recurrent chest pain with repeat ECG showing sinus rhythm with ST elevations in V1, V2 and heart alert activated. Per family report no prior cardiac history. Other medical problems include hypothyroidism, prior fall with hip fracture back in 2022. Allergies Allergy/AdvReac Type Severity Reaction Status Date / Time naproxen Allergy Severe SWELLING Verified 10/24/22 12:38 OF EYES, LIPS. 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 BURR GRINDER side Verified 10/24/22 12:38 effects omeprazole [From Prilosec] AdvReac Intermediate Abdominal Verified 10/24/22 12:38 Pain risedronate sodium AdvReac Intermediate Aches and Verified 10/24/22 12:38 [From Actonel] gastrointestinal upset Home Medications Medication Instructions Recorded Confirmed Type bimatoprost 0.01 % eye drops 0 drp OPB QPM 08/18/18 03/31/25 History (Lumigan) cyclosporine 0.05 % eye drops in a 0 drp OPB DAILY PRN Dry Eyes 08/18/18 03/31/25 History dropperette (Restasis) levothyroxine 75 mcg tablet 75 mcg PO QAM 08/18/18 03/31/25 History pjveriio-omm-tozvv acid 0.4 1 tab PO QPM 05/12/19 03/31/25 History mg-lycopene 300 mcg-lutein 250 mcg tablet (Centrum Silver) acetaminophen 500 mg tablet 1,000 mg (2 x 500 mg) PO TID PRN 10/26/22 03/31/25 Rx (Tylenol Extra Strength) fever or pain #30 tabs sennosides 8.6 mg-docusate sodium 2 tab PO HS #30 tabs 10/26/22 03/31/25 Rx 50 mg tablet (Senokot-S) latanoprost 0.005 % eye drops 1 drp ophthalmic (eye) HS 03/31/25 03/31/25 History tramadol 50 mg tablet 0 mg PO Q4H PRN pain 03/31/25 03/31/25 History Patient History Family History Other Family history non-contributory Social History Smoking Status: Unknown if ever smoked Second Hand Exposure: No; Do You Dip or Chew Tobacco: No; Hx Alcohol Use: No Hx Substance Use: No Preferred Language: Azerbaijani Communication Ability: Effective Rat Poisoner Required: No Beliefs That Will Affect Care: None marital status: Current Living Situation: Alone current occupational status: retired Feels Safe at Home: Yes Assistive Devices: None Review of Systems Review of Systems: All systems reviewed & are unremarkable except as noted in HPI & below Physical Exam Physical Exam: General: Comfortable, unsure why in the hospital HEENT: Sclerae anicteric Lungs: Clear anteriorly Cardiac: Regular rate and rhythm, no murmurs. Vascular: 2+ radial Abdomen: Soft, nontender Extremities: Well perfused, no peripheral edema Results & Data Vital Signs (Past 12 Hours) Vital Signs Pulse Pulse Resp BP BP Pulse Ox O2 Del Method 03/31/25 08:17 100 H 20 121/70 87 L Nasal Cannula 03/31/25 08:16 121/70 03/31/25 08:00 97 H 26 H 132/87 92 03/31/25 07:49 101 H 18 123/81 90 Nasal Cannula 03/31/25 07:45 98 H 25 H 123/81 89 L 03/31/25 07:39 108 H 25 H 117/79 88 L 03/31/25 07:18 100 H 17 93 03/31/25 07:00 91 H 27 H 95 03/31/25 06:00 96 H 24 120/86 92 Nasal Cannula 03/31/25 04:37 93 H 17 97 Nasal Cannula 03/31/25 04:17 94 H 18 142/95 H 96 Nasal Cannula 03/31/25 04:02 95 H 03/31/25 04:02 95 H 20 151/95 H 95 Nasal Cannula 03/31/25 04:01 94 Nasal Cannula O2 Flow Rate 03/31/25 08:17 6 03/31/25 08:16 03/31/25 08:00 03/31/25 07:49 2 03/31/25 07:45 03/31/25 07:39 03/31/25 07:18 03/31/25 07:00 03/31/25 06:00 03/31/25 04:37 2 03/31/25 04:17 2 03/31/25 04:02 03/31/25 04:02 2 03/31/25 04:01 2 PG Care Time/CCT Total # of Minutes Spent Total Time Spent with Patient: Total time spent is greater than 50% in coordination of care (as documented) at patient's floor/unit and/or counseling patient: Coding Level of Care Code 60847 ER DEPT VISIT MOD LVL 4 Diagnoses STEMI (ST elevation myocardial infarction) I21.3
--- NOTE | 2025-03-31 10:10 | Cardiac Catheterization ---
[facility] Data: Car Repairer Apprentice Cardiac Status Clinical evaluation leading to the procedure CAD Presenation: STEMI Anginal Classification: CCS IV Diagnostic Physicians Name: Estrada Barrett MD Closure Device Recommendations: PCI without planned CABG Cardiac Cath Procedure Full Procedure Date March 31, 2025 Pre-Procedure Diagnosis Pre-Procedure Diagnosis: STEMI AUC Score AUC Score: 9 Post-Procedure Diagnosis Post-Procedure Diagnosis: Severe CAD Procedure(s) Performed Procedure(s) Performed: Coronary Angiography, Left Heart Cath and Drug Eluting Stent Care Analyst Estrada Barrett MD News Specialist(s) January Estimated Blood Loss Estimated Blood Loss: 25 Medication(s) Medication(s): Clopidogrel, Diphenhydramine, Fentanyl, Heparin, Lidocaine 1%, Nicardipine, Nitroglycerin and Versed Medication(s): Furosemide Summary of Findings Indication: STEMI/Heart Alert Access: 6Fr right radial artery Catheters: Beatty, EBU 3.5 guide Findings: LM -normal caliber, no significant disease LAD -acute 100% proximal occlusion. After flow reestablished diffuse mid segment disease up to 90%. Small distal vessel tapers to apex. Medium D1 with 70% mid stenosis. Circumflex -medium caliber, AV groove circumflex without significant disease. Large OM with 95% proximal stenosis, 70% mid stenosis RCA -dominant, medium caliber, 30-40% mid segment disease, distal vessel without significant disease. RPDA without disease. Provides collaterals to high diagonal. Few septal collaterals to LAD LVEDP -30 -- PCI -- Antithrombotic therapy: Heparin, clopidogrel Procedure: Left main cannulated with EBU 3.5 guide Cask Maker 50 wire passed across lesion into distal vessel Proximal LAD lesion predilated with 2.5 compliant balloon Initial wire appeared to be in high first diagonal. Second physical medicine teacher 50 wire navigated into LAD and across mid segment disease Mid back to proximal LAD dilated with 2.5 balloon Mid LAD dilated lesion stented with 2.25 x 30 mm Abdulaziz drug-eluting stent Stent post-dilated with 2.5 noncompliant balloon Second [place] placed to proximal LAD (2.75 x 18 mm Abdulaziz) overlapping proximal aspect of initial stent). Stent postdilated with stent balloon Post procedure ABIOLA 3 flow in LAD, stent well expanded with minimal residual stenosis. Jailed diagonal with ostial stenosis and residual 70% mid segment stenosis but ABIOLA II-III flow and receives collaterals from RCA. Arterial Closure: TR band Summary: 1. Anterior STEMI/100% proximal LAD 2. Severe non-culprit coronary artery disease - 95% proximal OM1 70% mid D1 (appears to partially fill via RT to LT collaterals0 3. Elevated intracardiac filling pressure (LVEDP 30) 4. Successful PCI of proximal to mid LAD with 2 overlapping drug-eluting stents (2.75 x 18, 2.25 x 30 mm [place]). Recommendations: Admit to ICU for continued monitoring Loaded with clopidogrel 600 mg in Car Repairer Apprentice Given 40 of IV Lasix in Car Repairer Apprentice. Additional diuretics as hemodynamics allow Continue dual-antiplatelet therapy for at least 1 year. Trend troponins until peak, Check Echo Beta-linn/HEMA as BP allows High-dose statin Hemodynamics Rest Ao:: 113/64/91 Final Ao: 118/65/85 LV: 102/30 Recommendations Recommendations: PCI without planned CABG Specimens Specimens: None Radiation Exposure (mGy) 1049 Contrast (mls) 45 Anesthesia Moderate 4074-1552 Procedural Complication(s) None Disposition ICU I attest to the content of the Intraoperative Record and any orders documented therein. Any exceptions are noted below. [facility] Card Cath Procedure Codes Cardiac Catheterization Procedure 1: Cardiovascular Cath Procedures: 64418 Coronaries and LHC (+/-LV) Moderate Sedation Procedure 1: Sedation/Anesthesia: 45716 Mod Sedation by the same physician;Init15 Min Child Age 5 & Up Stenting Procedure 1: Cardiovascular Stent Procedures: 56493 Perc transluminal revascularization of acute sub/total occl, aMI PG Care Time/CCT Total # of Minutes Spent Total Time Spent with Patient: Total time spent is greater than 50% in coordination of care (as documented) at patient's floor/unit and/or counseling patient:
[2025-03-31] MEDS: METOPROLOL SUCC 25MG EXT REL TAB ONE (12:07)
--- NOTE | 2025-03-31 12:10 | Electrocardiogram Report ---
Test Reason : Blood Pressure : */* mmHG Vent. Rate : 96 BPM Atrial Rate : 96 BPM P-R Int : 158 ms QRS Dur : 92 ms QT Int : 368 ms P-R-T Axes : -17 -12 -41 degrees QTcB Int : 464 ms Sinus rhythm with Premature atrial complexes Inferior infarct , age undetermined Abnormal ECG When compared with ECG of 25-Oct-2022 07:14, Questionable change in QRS duration Confirmed by Jose Wheat ([id number]) on 03/31/2025 12:09:50 PM Referred By: REFERRED SELF Confirmed By: Jose Wheat
--- NOTE | 2025-03-31 12:11 | Electrocardiogram Report ---
Test Reason : Blood Pressure : */* mmHG Vent. Rate : 96 BPM Atrial Rate : 96 BPM P-R Int : 156 ms QRS Dur : 118 ms QT Int : 388 ms P-R-T Axes : 47 -52 92 degrees QTcB Int : 490 ms Normal sinus rhythm Possible Left atrial enlargement Left axis deviation Left ventricular hypertrophy with QRS widening Anteroseptal injury pattern * ACUTE AK T wave abnormality, consider lateral ischemia Abnormal ECG When compared with ECG of 31-Mar-2025 03:53, (unconfirmed) Significant changes have occurred Confirmed by Jose Wheat ([id number]) on 03/31/2025 12:11:21 PM Referred By: REFERRED SELF Confirmed By: Jose Wheat
[2025-03-31] MEDS: HEPARIN 25000 UNIT/500 ML D5W 25,000 UNITS/500 ML BAG IV SCH (13:16)
[2025-03-31] MEDS: Heparin IV Adult Wt-Based Low-Dose w/ INITIAL Bolus Protocol IV STA (13:16)
--- NOTE | 2025-03-31 13:54 | Critical Care Consultation ---
Date of Consultation March 31, 2025 Assessment & Plan (1) STEMI (ST elevation myocardial infarction): (2) Tachycardia: (3) UTI (urinary tract infection): (4) Thyroid disease: Plan Pt is a 89 yo female with PMH of dementia, hypothyroidism and hx of hip fracture who presented to ED with chest pain and vomiting. Pt found to have ST elevations and taken to [facility] for evaluation. Pt is now s/p PHOENIX x 2 at LAD for 100% infarct. Neuro: Pt with underlying hx of dementia living at [place]. Baseline cognitive function is unknown at this time. Will discuss with family to establish baseline and determine any further decline Cardiac: Pt is hemodynamically stable post cath and PHOENIX x 2 Troponin 126.9 in ED, 1414.2 post catheterization. -pt is refusing further blood draws and repeat troponin was deferred Cardiology consulted, recommendations appreciated -Admit to ICU for continued monitoring -Loaded with clopidogrel 600 mg in Carton Stapler -Given 40 of IV Lasix in Carton Stapler. Additional diuretics as hemodynamics allow -Continue dual-antiplatelet therapy for at least 1 year. -Trend troponins until peak, Check Echo -Beta-linn/HEMA as BP allows -High-dose statin Pulmonary: Pt is maintaining O2 sat >90% without supplemental O2. CXR showed faint RLL opacity- no current clinic signs to support dx of pneumonia at this time Given 3000mg Ampicillin in ED- discontinued Will continue to monitor symptoms GI: Vomiting at initial presentation likely secondary to AK. No current GI complaints and tolerating food well Endo: Hx of hypothyroidism, will continue home dose of levothyroxine 75mcg qam Renal/Electrolytes: No known hx of renal pathology No current electrolyte disturbances Continue to monitor chemistry : Gonzales in place, remove as pt is safely able to transfer and ambulate ID: Mild leukocytosis at 11.87, likely reflective of cardiac event vs possible infection at RLL Code-Full DVT prophylaxis-Heparin GI prophylaxis- pantoprazole 40mg Diet-Heart healthy History of Present Illness Reason for Consultation: s/p cardiac catheterization Requesting Physician: Dr. Moustapha Alonso Attending Physician: Abdiaziz Alonso MD History of Present Illness Mary is an 89 yo female with PMH of dementia, hypothyroidism and hx of hip fracture who presented to ED with chest pain and vomiting. Pt found to have ST elevations and taken to [facility] for evaluation. Pt is now s/p PHOENIX x 2 at LAD for 100% infarct. Mary is sitting up in her hospital bed eating lunch at time of assessment. She states she is feeling well, however she does not recall events of this morning including c/o chest pain and vomiting, ambulance ride to hospital, or cardiac catheterization. Pt currently denies any chest pain, SOB, abdominal pain, nausea, or dysuria. Allergies Allergy/AdvReac Type Severity Reaction Status Date / Time naproxen Allergy Severe SWELLING Verified 10/24/22 12:38 OF EYES, LIPS. 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 Verified 10/24/22 12:38 effects omeprazole [From Prilosec] AdvReac Intermediate Abdominal Verified 10/24/22 12:38 Pain risedronate sodium AdvReac Intermediate Aches and Verified 10/24/22 12:38 [From Actonel] gastrointestinal upset Home Medications Medication Instructions Recorded Confirmed Type bimatoprost 0.01 % eye drops 0 drp OPB QPM 08/18/18 03/31/25 History (Blaine) cyclosporine 0.05 % eye drops in a 0 drp OPB DAILY PRN Dry Eyes 08/18/18 03/31/25 History dropperette (Restasis) levothyroxine 75 mcg tablet 75 mcg PO QAM 08/18/18 03/31/25 History zqegbprp-jwn-iabys acid 0.4 1 tab PO QPM 05/12/19 03/31/25 History mg-lycopene 300 mcg-lutein 250 mcg tablet (Centrum Silver) acetaminophen 500 mg tablet 1,000 mg (2 x 500 mg) PO TID PRN 10/26/22 03/31/25 Rx (Tylenol Extra Strength) fever or pain #30 tabs sennosides 8.6 mg-docusate sodium 2 tab PO HS #30 tabs 10/26/22 03/31/25 Rx 50 mg tablet (Senokot-S) latanoprost 0.005 % eye drops 1 drp ophthalmic (eye) HS 03/31/25 03/31/25 History tramadol 50 mg tablet 0 mg PO Q4H PRN pain 03/31/25 03/31/25 History Patient History Family History Other Family history non-contributory Social History Smoking Status: Unknown if ever smoked Second Hand Exposure: No; Do You Dip or Chew Tobacco: No; Hx Alcohol Use: No Hx Substance Use: No Preferred Language: Cuban Communication Ability: Effective Motor 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 Pt answers questions about presently occurring events appropriately. HENT: Normocephalic, atraumatic. External ear without deformities. Trachea midline, no thyromegaly Cardio: RRR, tachycardic, no murmurs or clicks. No LE edema noted. Resp: CTAB, Equal bilateral chest rise, no increased work of breathing. No supplemental oxygen GI: Non distended, soft, non tender, normoactive bowel sounds : Gonzales in place, urine in pale yellow MSK: Moving all 4 extremities independently Skin: Dry, of normal skin tone, no rashes noted Neuro: A& O x 1, Pt is not oriented to time, place or situation. Pt is unaware of recent events including AK or catheterization. Results & Data Results & Data Vital Signs (Past 12 Hours) Vital Signs Pulse Pulse Resp BP BP Pulse Ox O2 Del Method 03/31/25 12:15 99 H 18 100/68 95 Nasal Cannula 03/31/25 12:00 104 H 18 103/66 95 Nasal Cannula 03/31/25 11:45 108 H 18 101/70 93 Nasal Cannula 03/31/25 11:30 108 H 18 101/70 93 Nasal Cannula 03/31/25 11:15 110 H 18 122/74 95 Nasal Cannula 03/31/25 11:00 106 H 18 112/78 98 Non-rebreather 03/31/25 10:45 108 H 18 115/72 98 Non-rebreather 03/31/25 10:30 102 H 18 110/62 95 Non-rebreather 03/31/25 10:15 106 H 18 114/68 95 Non-rebreather 03/31/25 10:00 102 H 18 118/90 97 Non-rebreather 03/31/25 09:45 95 H 18 116/67 92 Non-rebreather 03/31/25 09:30 92 H 18 115/72 86 L Oxymask 03/31/25 08:17 100 H 20 121/70 87 L Nasal Cannula 03/31/25 08:16 121/70 03/31/25 08:00 97 H 26 H 132/87 92 03/31/25 07:49 101 H 18 123/81 90 Nasal Cannula 03/31/25 07:45 98 H 25 H 123/81 89 L 03/31/25 07:39 108 H 25 H 117/79 88 L 03/31/25 07:18 100 H 17 93 03/31/25 07:00 91 H 27 H 95 03/31/25 06:00 96 H 24 120/86 92 Nasal Cannula 03/31/25 04:37 93 H 17 97 Nasal Cannula 03/31/25 04:17 94 H 18 142/95 H 96 Nasal Cannula 03/31/25 04:02 95 H 03/31/25 04:02 95 H 20 151/95 H 95 Nasal Cannula 03/31/25 04:01 94 Nasal Cannula O2 Flow Rate 03/31/25 12:15 2 03/31/25 12:00 2 03/31/25 11:45 4 03/31/25 11:30 4 03/31/25 11:15 4 03/31/25 11:00 15 03/31/25 10:45 15 03/31/25 10:30 15 03/31/25 10:15 15 03/31/25 10:00 15 03/31/25 09:45 15 03/31/25 09:30 15 03/31/25 08:17 6 03/31/25 08:16 03/31/25 08:00 03/31/25 07:49 2 03/31/25 07:45 03/31/25 07:39 03/31/25 07:18 03/31/25 07:00 03/31/25 06:00 03/31/25 04:37 2 03/31/25 04:17 2 03/31/25 04:02 03/31/25 04:02 2 03/31/25 04:01 2 Resident Activity Tracking Resident Involvement: Resident Care Provided Care Provided: Adult Hospital Medicine
--- NOTE | 2025-03-31 15:22 | XCELERA ---
[id number] \\[email or web address]-PATIENCE\[email or web address]_[email or web address]\[id number]
--- NOTE | 2025-03-31 17:53 | Emergency Department Note ---
Impression & Plan ST elevation CO (STEMI), Aspiration pneumonia to the Manager Risk with Dr. Barrett ED Provider Note NAME: LUISA ROWELL AGE: 89 SEX: Female INFORMANT: Patient ED PROVIDER(S): Christy Diaz DO CHIEF COMPLAINT: Chest pain and vomiting PLAN: Disposition: to the Manager Risk with Dr. Barrett; admit to the [facility] MEDICAL DECISION MAKING: This is a pleasantly demented 89-year-old female patient from [place] who was found in a another resident's room complaining of chest pain and vomiting. She has no history of cardiac disease according to the family. Upon EMS arrival, she continued to complain of chest pain and was given sublingual nitro and aspirin. Twelve-lead EKG showed evidence of a STEMI. She was transported here to the emergency department upon arrival, repeat ECG showed resolution of the ECG changes. Pain-free. Workup was performed and she remained hemodynamically stable. Laboratory studies showed white blood cell count of 11.8. H&H were stable. Glucose was 174. Troponin was elevated to 126.9. Chest x-ray was performed which showed a faint opacity in the right lower lung. Given the profuse vomiting the patient had, I will treat her as a possible aspiration pneumonia. She was given a dose of IV Unasyn. Just prior to the [facility] evaluating the patient for admission, she had recurrence of her chest discomfort. A repeat ECG was performed and showed evidence of a STEMI again. A heart alert was called and the patient was evaluated by the cardiac cath team including Dr. Barrett who I discussed the case with. Care/management discussed with: Dr. Barrett from cardiology; Dr. Alonso from the [facility] group Triage Nursing notes: reviewed and agree With them. Vital Signs: reviewed and remarkable for tachycardia Additional History obtained from: EMS and the patient's daughter Chronic Medical/Social Conditions affecting care: dementia-resides at [place] Differential Diagnosis: STEMI, NSTEMI, GERD, costochondritis Diagnostics, independently interpreted by me: ECG: normal sinus rhythm at a rate of 96 with PACs. There is no ST segment elevation or signs of ischemia. Repeat ECG because the patient complained of chest pain. Normal sinus rhythm at a rate of with moderate ST segment elevation in lead V1 and V2 with reciprocal changes in lead I and aVL consistent with a STEMI Cardiac Monitoring: normal sinus rhythm at a rate of 92 Imaging studies: portable chest x-ray: Faint right lower lobe opacity according to Imbro HPI: 89 year old Female arrives for evaluation of chest pain. patient from [place] who was found in a another resident's room complaining of chest pain and vomiting. She has no history of cardiac disease according to the family. Upon EMS arrival, she continued to complain of chest pain and was given sublingual nitro and aspirin. Twelve-lead EKG showed evidence of a STEMI. PAST MEDICAL HISTORY: See Below, PAST SURGICAL HISTORY: See Below, SOCIAL HISTORY: See Below, HOME MEDICATIONS: see list ALLERGIES: see list VITALS: See Below PHYSICAL EXAMINATION: HEENT: Head - normocephalic and atraumatic. Pupils are equal, round, and reactive to light. Extraocular eye muscles are intact, and sclera are anicteric. Nose - moist nasal mucosa without discharge. Mouth - moist buccal mucosa. Oropharynx is nonerythematous and there is no tonsillar exudate or edema noted. Neck: Supple; no JVD, nuchal rigidity, cervical lymphadenopathy. Heart: Regular rate and rhythm. There is a normal S1 and S2 with no murmurs, clicks, or gallops appreciated. Lungs: Clear to auscultation bilaterally with no wheezes, rales, or rhonchi. Abdomen: Soft, completely nontender, nondistended, with good bowel sounds. There are no palpable pulsatile masses or hepatosplenomegaly. There is no guarding, rigidity, or rebound noted. Extremities: No evidence of cyanosis, clubbing, or edema. There are easily palpable peripheral pulses. 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 The EKG that was transmitted from the scene by EMS showed evidence of a STEMI with ST segment elevation in leads V1 and V2 with reciprocal changes in 1 and aVL. Upon arrival in the emergency department, her EKG had returned to normal with no signs of ischemia. Is no longer complaining of chest pain. She had received sublingual nitroglycerin in the field as well as aspirin. An order was placed for continuous cardiac monitoring. The patient was in a normal sinus rhythm at a rate of 92. Laboratory studies were drawn as above. She was monitored very closely. Portable chest x-ray was performed. There is questionable opacity in the right lung base. Given her profuse vomiting on scene, there was concern for the possibility of aspiration pneumonia. She was treated with IV Unasyn. Preparations were made for admission to the hospital. I discussed the case with the patient's daughter who is at the bedside. Just prior to evaluation by the [facility] Hospitalist, the patient developed recurrent substernal chest discomfort and diaphoresis. A repeat twelve-lead EKG was performed and the patient again had ST segment elevation in leads V1 and V2 with reciprocal changes. A heart alert was called and I discussed the case with Dr. Barrett. She was given sublingual nitro which did give her some relief of the discomfort. He will take the patient to the Manager Risk. I have personally spent greater than 50 minutes of critical care time in the direct management of this patient. This includes bedside care, interpretation of diagnostic studies, and testing, discussion with consultants, patient, and family members, and other required patient management activities. This 50 minutes is in excess of all separately billable procedures. Past Med/Surg History Problem List (Updated 03/31/25 @ 18:06 by Christy Diaz DO) Aspiration pneumonia (Acute) ST elevation CO (STEMI) (Acute) STEMI (ST elevation myocardial infarction) Vitamin D deficiency Tachycardia Encounter for pre-operative examination Hip fracture, right UTI (urinary tract infection) Closed hip fracture (Acute) Thyroid disease Generalized weakness (Acute) Generalized weakness (Acute) Shortness of breath Family History Other Family history non-contributory Social History Smoking Status: Never smoker Second Hand Exposure: No; Hx Alcohol Use: No Hx Substance Use: No Preferred Language: Barbadian Communication Ability: Effective Overhead Line Worker Required: No Beliefs That Will Affect Care: None marital status: Current Living Situation: Personal Care Facility current occupational status: retired Feels Safe at Home: Yes Safety Concerns: Feels Safe At This Time Assistive Devices: None Allergies Allergies Allergy/AdvReac Type Severity Reaction Status Date / Time naproxen Allergy Severe SWELLING Verified 10/24/22 12:38 OF EYES, LIPS. 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 Verified 10/24/22 12:38 effects omeprazole [From Prilosec] AdvReac Intermediate Abdominal Verified 10/24/22 12:38 Pain risedronate sodium AdvReac Intermediate Aches and Verified 10/24/22 12:38 [From Actonel] gastrointestinal upset Home Meds Home Medications Medication Instructions Recorded Confirmed bimatoprost 0.01 % eye drops 0 drp OPB QPM 08/18/18 03/31/25 (Lumigan) cyclosporine 0.05 % eye drops in a 0 drp OPB DAILY PRN Dry Eyes 08/18/18 03/31/25 dropperette (Restasis) levothyroxine 75 mcg tablet 75 mcg PO QAM 08/18/18 03/31/25 ymhuchjo-ssr-lihcc acid 0.4 1 tab PO QPM 05/12/19 03/31/25 mg-lycopene 300 mcg-lutein 250 mcg tablet (Centrum Silver) latanoprost 0.005 % eye drops 1 drp ophthalmic (eye) HS 03/31/25 03/31/25 tramadol 50 mg tablet 0 mg PO Q4H PRN pain 03/31/25 03/31/25 Previous Rx's Medication Instructions Recorded acetaminophen 500 mg tablet 1,000 mg (2 x 500 mg) PO TID PRN 10/26/22 (Tylenol Extra Strength) fever or pain #30 tabs sennosides 8.6 mg-docusate sodium 2 tab PO HS #30 tabs 10/26/22 50 mg tablet (Senokot-S) Results & Data (ED) Vital Signs Vital Signs - 24 hr 03/31/25 04:01 03/31/25 04:02 03/31/25 04:02 Pulse Rate 95 H Pulse Rate [Apical] 95 H Pulse Rate from SpO2 Sensor Pulse Rhythm [Apical] Respiratory Rate 20 Respiratory Effort / Characteristics Respiratory Depth Respiratory Pattern Blood Pressure Blood Pressure [Right Arm] 151/95 H Blood Pressure Mean Blood Pressure Mean [Right Arm] 113 Pulse Oximetry 94 95 Oxygen Delivery Method Nasal Cannula Nasal Cannula Oxygen Flow Rate 2 2 Sepsis Recent Fever Within 48 Hours Sepsis New/Unexplained Change in Mental Status Sepsis Action Taken by Nursing 03/31/25 04:17 03/31/25 04:37 03/31/25 06:00 Pulse Rate 94 H 93 H Pulse Rate [Apical] 96 H Pulse Rate from SpO2 Sensor Pulse Rhythm [Apical] Respiratory Rate 18 17 24 Respiratory Effort / Characteristics Non-Labored Spontaneous Respiratory Depth Normal Respiratory Pattern Regular Blood Pressure 142/95 H Blood Pressure [Right Arm] 120/86 Blood Pressure Mean 110 Blood Pressure Mean [Right Arm] 97 Pulse Oximetry 96 97 92 Oxygen Delivery Method Nasal Cannula Nasal Cannula Nasal Cannula Oxygen Flow Rate 2 2 Sepsis Recent Fever Within 48 Hours No Sepsis New/Unexplained Change in Mental Status No Sepsis Action Taken by Nursing No Action Required 03/31/25 07:00 03/31/25 07:18 03/31/25 07:39 Pulse Rate 91 H 100 H 108 H Pulse Rate [Apical] Pulse Rate from SpO2 Sensor 93 H 99 H 105 H Pulse Rhythm [Apical] Respiratory Rate 27 H 17 25 H Respiratory Effort / Characteristics Respiratory Depth Respiratory Pattern Blood Pressure 117/79 Blood Pressure [Right Arm] Blood Pressure Mean 91 Blood Pressure Mean [Right Arm] Pulse Oximetry 95 93 88 L Oxygen Delivery Method Oxygen Flow Rate Sepsis Recent Fever Within 48 Hours Sepsis New/Unexplained Change in Mental Status Sepsis Action Taken by Nursing 03/31/25 07:45 03/31/25 07:49 03/31/25 08:00 Pulse Rate 98 H 97 H Pulse Rate [Apical] 101 H Pulse Rate from SpO2 Sensor 100 H 96 H Pulse Rhythm [Apical] Regular Respiratory Rate 25 H 18 26 H Respiratory Effort / Characteristics Non-Labored Respiratory Depth Normal Respiratory Pattern Regular Blood Pressure 123/81 132/87 Blood Pressure [Right Arm] 123/81 Blood Pressure Mean 95 102 Blood Pressure Mean [Right Arm] 95 Pulse Oximetry 89 L 90 92 Oxygen Delivery Method Nasal Cannula Oxygen Flow Rate 2 Sepsis Recent Fever Within 48 Hours Sepsis New/Unexplained Change in Mental Status Sepsis Action Taken by Nursing Laboratory Data 03/31/25 04:00 03/31/25 04:00 Lab Results 03/31/25 03/31/25 Range/Units 04:00 06:25 WBC 11.87 H (4.8-10.8) K/ul RBC 4.43 (4.20-5.40) M/uL Hgb 13.5 (12.0-16.0) g/dl Hct 40.9 (37.0-47.0) % MCV 92.3 (80.0-100.0) fL MCH 30.5 (25.0-34.0) pg MCHC 33.0 (32.0-36.0) g/dL RDW Std Deviation 48.0 H (36.4-46.3) fL RDW Coeff of Yuliana 14.2 (11.5-14.5) % Plt Count 282 (130-400) K/uL MPV 11.2 (9.4-12.4) fL Immature Gran % (Auto) 0.3 % Neut % (Auto) 77.4 % Lymph % (Auto) 12.6 % [place] % (Auto) 6.1 % Eos % (Auto) 2.8 % Baso % (Auto) 0.8 % Neut # (Auto) 9.19 H (1.40-6.50) K/uL Lymph # (Auto) 1.50 (1.20-3.40) K/uL [place] # (Auto) 0.72 H (0.11-0.59) K/uL Eos # (Auto) 0.33 (0.00-0.50) K/uL Baso # (Auto) 0.09 (0.00-0.20) K/uL Immature Gran # (Auto) 0.04 (0.01-0.20) K/uL PT 10.6 (9.0-12.0) Seconds INR 1.0 (0.9-1.1) APTT 27 (21-31) Seconds PTT Ratio 1.0 Sodium 139 (136-145) mmol/L Potassium 4.2 (3.5-5.1) mmol/L Chloride 103 (98-107) mmol/L Carbon Dioxide 27 (21-32) mmol/L Anion Gap 9 (3-11) BUN 19 (6-23) mg/dl Creatinine 1.14 (0.6-1.2) mg/dl Est Cr Clr Drug Dosing 27.0 ml/min eGFR 46.30 BUN/Creatinine Ratio 16.7 (10-20) Glucose 174 H (70-99(Fasting)) mg/dl Calcium 9.3 (8.6-10.3) mg/dl Magnesium 2.4 (1.7-2.4) mg/dl Total Bilirubin 0.4 (0.2-1.0) mg/dl AST 19 (13-39) U/L ALT 14 (7-52) U/L Alkaline Phosphatase 87 (34-104) U/L Troponin I High Sens 126.9 H* 1414.2 H* D (0-14) pg/ml Total Protein 7.4 (6.0-8.3) gm/dl Albumin 4.0 (3.4-5.0) gm/dl Globulin 3.4 (2.5-4.0) gm/dl Albumin/Globulin Ratio 1.2 (0.9-2) Lipase 12 (11-82) U/L Administered Medications Miscellaneous (Icu Protocol For Hyperglycemia) 1 each N/A ACHS [facility] Stop: 04/02/25 12:57 Last Admin: 03/31/25 14:35 Dose: Not Given Documented By: NMK Discontinued Medications Clopidogrel Bisulfate (Clopidogrel Bisulfate 300 Mg Tab) Confirm Administered Dose 600 mg .ROUTE .STK-MED ONE Stop: 03/31/25 09:33 Last Admin: 03/31/25 09:36 Dose: 600 mg Documented By: EARLENE Diphenhydramine HCl (Diphenhydramine 50 Mg/Ml Vial) Confirm Administered Dose 50 mg .ROUTE .STK-MED ONE Stop: 03/31/25 08:26 Last Admin: 03/31/25 09:35 Dose: 25 mg Documented By: EARLENE Fentanyl Citrate (Fentanyl Citrate Pf 100 Mcg/2 Ml Vial) Confirm Administered Dose 100 mcg .ROUTE .STK-MED ONE Stop: 03/31/25 08:12 Last Increment: 03/31/25 09:19 Dose: 37.5 mcg Documented By: EARLENE Furosemide (Furosemide 40 Mg/4 Ml Vial) Confirm Administered Dose 40 mg IV .STK- MED ONE Stop: 03/31/25 08:45 Last Admin: 03/31/25 09:35 Dose: 40 mg Documented By: EARLENE Heparin Sodium (Porcine) (Heparin (Porcine) 1000 Unit/Ml 10 Ml (Manager Risk Use Only)) Confirm Administered Dose 10,000 units .ROUTE .STK-MED ONE Stop: 03/31/25 08:12 Last Admin: 03/31/25 09:33 Dose: 7,000 units Documented By: EARLENE Heparin Sodium/Dextrose (Heparin Iv Adult Wt-Based Low-Dose W/ Initial Bolus Protocol) 1 each IV NOW STA; Protocol Stop: 03/31/25 08:15 Last Admin: 03/31/25 13:16 Dose: Not Given Documented By: LISANDRO Heparin Sodium/Sodium Chloride (Heparin In Nss Infusion 1000 Unit/500 Ml (2 U/Ml) Bag) Confirm Administered Dose 3,000 units IV .STK-MED ONE Stop: 03/31/25 08:13 Last Admin: 03/31/25 08:59 Dose: 3,000 units Documented By: EARLENE Heparin Sodium/Dextrose (Heparin 70419 Unit/500 Ml D5w) 25,000 units in 500 mls @ 0.02 mls/hr IV .Q24H JASON; Protocol Stop: 04/30/25 08:29 Last Admin: 03/31/25 13:16 Dose: Not Given Documented By: LISANDRO Ioversol (Optiray 350) Confirm Administered Dose 1 ml .ROUTE .STK-MED ONE Stop: 03/31/25 08:13 Last Admin: 03/31/25 09:34 Dose: 40 ml Documented By: EARLENE Metoprolol Succinate (Metoprolol Succ 25mg Ext Rel Tab) Confirm Administered Dose 25 mg .ROUTE .STK-MED ONE Stop: 03/31/25 11:48 Last Admin: 03/31/25 12:07 Dose: 12.5 mg Documented By: EFREN Midazolam HCl (Midazolam Hcl 1 Mg/Ml 2ml Vial) Confirm Administered Dose 2 mg .ROUTE .STK-MED ONE Stop: 03/31/25 08:12 Last Increment: 03/31/25 09:34 Dose: 1 mg Documented By: EARLENE Nicardipine HCl (Nicardipine 2,000 Mcg/20 Ml Syr) Confirm Administered Dose 2,000 mcg .ROUTE .STK-MED ONE Stop: 03/31/25 08:13 Last Admin: 03/31/25 08:59 Dose: 2,000 mcg Documented By: SAPPHIRE Nitroglycerin (Nitroglycerin Sl 0.4 Mg/Tab Tab) Confirm Administered Dose 0.4 mg .ROUTE .STK-MED ONE Stop: 03/31/25 08:03 Last Admin: 03/31/25 08:03 Dose: 0.4 mg Documented By: NICKO Nitroglycerin/Dextrose (Nitroglycerin/D5w 100mcg/Ml 20ml Syr) Confirm Administered Dose 2,000 mcg .ROUTE .[employer] ONE Stop: 03/31/25 08:13 Last Admin: 03/31/25 08:59 Dose: 2,000 mcg Documented By: SAPPHIRE Ondansetron HCl (Ondansetron Inj 2 Mg/Ml 2 Ml Vial) Confirm Administered Dose 4 mg .ROUTE .[employer] ONE Stop: 03/31/25 04:13 Last Admin: 03/31/25 04:17 Dose: 4 mg Documented By: REBECCA Ondansetron HCl (Ondansetron Inj 2 Mg/Ml 2 Ml Vial) Confirm Administered Dose 4 mg .ROUTE .[employer] ONE Stop: 03/31/25 08:47 Last Admin: 03/31/25 09:35 Dose: Not Given Documented By: EARLENE Discharge Plan Visit Data Chief Complaint: Chest Pain Stated Complaint: Chest Pain ED Provider: Christy Diaz Discharge Problem: ST elevation CO (STEMI), Aspiration pneumonia Condition: Critical
[2025-03-31] MEDS: AMPICILLIN/SULBACTAM SOD 3,000 MG/100 ML BAG IV STA (18:57)
[2025-03-31] MEDS: LATANOPROST 0.005% OP SOLN 2.5 ML BTL OP SCH (20:31)
[2025-04-01 05:45] LABS: Hematocrit (blood only) 41.5 % (37.0-47.0); Hemoglobin 13.8 g/dl (12.0-16.0); Immature Granulocytes # (auto) 0.04 K/uL (0.01-0.20); Immature Granulocytes % (auto) 0.3 %; Mean Corpuscular Hemoglobin 29.7 pg (25.0-34.0); Mean Corpuscular Volume 89.2 fL (80.0-100.0); Platelet Count 241 K/uL (130-400); RDW Standard Deviation 46.8 fL (36.4-46.3); Red Blood Count 4.65 M/uL (4.20-5.40); White Blood Count 12.30 K/ul (4.8-10.8)
[2025-04-01] MEDS: LEVOTHYROXINE SODIUM 75 MCG TABLET PO SCH (05:50)
[2025-04-01 06:07] LABS: Anion Gap 5.0 (3-11); Blood Urea Nitrogen 25.0 mg/dl (6-23); Calcium 8.5 mg/dl (8.6-10.3); Carbon Dioxide 32.0 mmol/L (21-32); Chloride 102.0 mmol/L (98-107); Cholesterol 183.0 mg/dl (0-200); Creatinine Clr Calc Pharmacy 25.2 ml/min; Glucose 114.0 mg/dl (70-99(Fasting)); HDL Cholesterol 58.0 mg/dl; Magnesium 2.3 mg/dl (1.7-2.4); Potassium 4.3 mmol/L (3.5-5.1); Sodium 139.0 mmol/L (136-145); Triglycerides 99.0 mg/dl (0-150)
[2025-04-01 06:52] LABS: Hemoglobin A1C 5.7 % (4.5-5.6)
--- NOTE | 2025-04-01 07:02 | Critical Care Progress Note ---
Date of Service April 01, 2025 Assessment & Plan (1) STEMI (ST elevation myocardial infarction): (2) Tachycardia: (3) UTI (urinary tract infection): (4) Thyroid disease: Plan Pt is a 89 yo female with PMH of dementia, hypothyroidism and hx of hip fracture who presented to ED with chest pain and vomiting. Pt found to have ST elevations and taken to [facility] for evaluation. Pt is now s/p PHOENIX x 2 at LAD for 100% infarct. Pt has been hemodynamically stable overnight. Pt is ready to down grade from ICU. Neuro: Pt with underlying hx of dementia living at [facility]. Baseline cognitive function is unknown at this time. No cognitive changes noted from yesterday's presentation Cardiac: Pt is hemodynamically stable post cath and PHOENIX x 2 Troponin 126.9 in ED, 1414.2-->566669 post catheterization. -Will continue to trend with AM labs due to pt's refusal of additional labs during daytime hours Cardiology consulted, recommendations appreciated - Continue DAPT with ASA, Clopidogrel - Start low dose beta-linn -- metoprolol 12.5 BID - Consider HEMA/MRA if BP allows. - Likely will need maintenance diuretic on discharge. Will hold off on additional diuretic today. - Continue PPI Continue atorvastatin 40mg Stable to downgrade from ICU status Pulmonary: Pt is maintaining O2 sat >90% with intermittent supplemental O2. CXR showed faint RLL opacity- no current clinic signs to support dx of pneumonia at this time Abx stopped 03/31 Will continue to monitor symptoms GI: Vomiting at initial presentation likely secondary to PA. No current GI complaints and tolerating food well - Continue pantoprazole 40mg qam Endo: Hx of hypothyroidism, will continue home dose of levothyroxine 75mcg qam Renal/Electrolytes: No known hx of renal pathology No current electrolyte disturbances Continue to monitor chemistry : Gonzales in place, remove today as pt is safe to transfer and ambulate with nursing assist ID: Mild leukocytosis at 12.30, likely reflective of cardiac event and recent cath with PHOENIX x 2 vs possible infection at RLL Code-Full DVT prophylaxis-Heparin GI prophylaxis- pantoprazole 40mg Diet-Heart healthy Admission and Anticipated Discharge Date Admission Date: March 31, 2025 Supervising Physician Co-Signing Physician Notes Dr. Alvarado was resident physician during care of patient. I separately evaluated patient for grant portions of the history and the exam. I was present during the critical portion of medical decision making, and I discussed the case with the resident. I generally agree with the findings and plan. Patient stable for downgrade out of ICU Subjective Overnight, pt had no acute events. This morning, pt reports no complaints. She denies chest pain, SOB, abdominal pain, N/V/D, new myalgias or arthralgias. Review of Systems Review of Systems: As per HPI Physical Exam Physical Exam: Gen: NAD, sitting up in bed, cooperative HENT: Normocephalic, atraumatic. External ear without deformities. Trachea midline, no thyromegaly Cardio: RRR, tachycardic, no murmurs or clicks. No LE edema noted. Resp: CTAB, Equal bilateral chest rise, no increased work of breathing. GI: Non distended, soft, non tender, normoactive bowel sounds : Gonzales in place, urine in pale yellow MSK: Moving all 4 extremities independently Skin: Dry, of normal skin tone, no rashes noted Neuro: A& O x 1, Pt is not oriented to time, place or situation. Pt continues unaware of recent events including PA or catheterization. Results & Data Results & Data Vital Signs (Past 12 Hours) Vital Signs Temp Pulse Resp BP Pulse Ox O2 Del Method O2 Flow Rate 04/01/25 06:30 95 H 22 96 04/01/25 06:21 99 H 19 95 04/01/25 06:15 113 H 20 96 04/01/25 06:00 89/65 L 04/01/25 05:51 14 97 04/01/25 05:36 100 H 21 96 04/01/25 05:12 102 H 27 H 90 04/01/25 05:06 100 H 24 95 04/01/25 05:00 37 C 89/60 L 04/01/25 04:51 99 H 25 H 90 04/01/25 04:12 91 H 17 96 Nasal Cannula 2 04/01/25 04:00 106/68 04/01/25 03:42 87 21 96 04/01/25 03:00 112/73 04/01/25 03:00 112/73 04/01/25 03:00 112/73 04/01/25 02:15 95 H 22 95 04/01/25 02:00 101/67 04/01/25 01:54 94 H 23 93 04/01/25 01:06 93 H 20 94 04/01/25 01:00 98/69 L 04/01/25 00:48 94 H 22 94 04/01/25 00:39 95 H 20 94 04/01/25 00:00 99 H 22 94 Nasal Cannula 2 04/01/25 00:00 116/72 03/31/25 23:30 100 H 22 94 03/31/25 23:02 100 H 23 94 03/31/25 23:00 36.8 C 112/74 03/31/25 22:59 97 H 21 94 03/31/25 22:55 98 H 03/31/25 22:35 96 H 21 94 03/31/25 22:11 100 H 21 115/78 95 Nasal Cannula 2 03/31/25 21:35 100 H 21 97 03/31/25 21:20 100 H 25 H 96 03/31/25 21:04 104/66 03/31/25 20:30 112 H 22 95 03/31/25 20:15 109 H 22 96 03/31/25 20:00 90/78 L 03/31/25 20:00 36.8 C 90/78 L 03/31/25 19:57 107 H 17 97 03/31/25 19:33 108 H 15 95 03/31/25 19:32 Nasal Cannula 2 03/31/25 19:29 116/72 03/31/25 19:29 116/72 03/31/25 19:27 105 H 22 97 Nasal Cannula 2 Resident Activity Tracking Resident Involvement: Resident Care Provided Care Provided: Adult Hospital Medicine
--- NOTE | 2025-04-01 09:10 | Hospitalist Progress Note ---
Date of Service April 01, 2025 Assessment & Plan (1) STEMI (ST elevation myocardial infarction): (2) Acute respiratory failure with hypoxia: (3) Acute heart failure with reduced ejection fraction (HFrEF): (4) Ischemic cardiomyopathy: Plan 89 year old female with dementia presents to the ER with chest pain and ST elevations in anterior leads. Also had vomiting episode. #STEMI s/p cardiac catheterization 03/31, 100% proximal LAD with severe known culprit coronary artery disease with 95% proximal OM1 and 70% mid D1 ASA reportedly given by EMS, continue daily Clopidogrel loaded in the cardiac [employer], continue 75 mg p.o. daily Atorvastatin started at 40 mg p.o. daily, LDL 105, given advanced age monitor for muscle weakness PPI started by cardiology only while in hospital #Acute hypoxic respiratory failure /ischemic cardiomyopathy /acute heart failure with reduced ejection fraction Vomited prior to admission therefore some concern for aspiration pneumonitis - incentive spirometer q1hwa, monitor for aspiration pneumonia (no fever overnight) Lasix 40mg IV given yesterday with elevated intracardiac filling pressure (LVEDP 30) Current blood pressure limiting further diuresis and starting GDMT - will defer to cardiology regarding this, metoprolol succinate one dose given yesterday @ 12.5mg PO Aim O2 sats > 94% #Dementia On no specific medications for this. No family at bedside to discuss baseline on admission or today. #Hypothyroidism TSH with AM labs Continue levothyroxine 75 mcg PO daily VTE Prophylaxis - heparin 5000 units SQ BID Disposition - stable for downgrade to PCU Admission and Anticipated Discharge Date Admission Date: March 31, 2025 Subjective Pleasantly confused this morning. She is aware she is in hospital but thought she was here for UTI. She acts surprise when I tell her about a heart attack and then forgets about this 10 minutes later when I talk about it again. She is yet to get out of bed today but reports no dizziness while in bed. She denies any chest pain or shortness of breath. Physical Exam Constitutional: WD/WN, vitals as above Respiratory: normal respiratory effort, lungs clear to auscultation Cardiovascular: RRR, no murmur, no edema Gastrointestinal (Abdomen): normal bowel sounds, soft, nontender, no hepatosplenomegaly Neurologic: moves all extremities, awake and + confused Psychiatric: Orientation: alert, oriented to person (Self) and oriented to place (Aware she is in hospital); + not oriented to time Results & Data Results & Data Vital Signs (Past 12 Hours) Vital Signs Temp Pulse Resp BP Pulse Ox O2 Del Method O2 Flow Rate 04/01/25 07:46 36.4 C L 04/01/25 07:35 Nasal Cannula 2 04/01/25 06:30 95 H 22 96 04/01/25 06:21 99 H 19 95 04/01/25 06:15 113 H 20 96 04/01/25 06:00 89/65 L 04/01/25 05:51 14 97 04/01/25 05:36 100 H 21 96 04/01/25 05:12 102 H 27 H 90 04/01/25 05:06 100 H 24 95 04/01/25 05:00 37 C 89/60 L 04/01/25 04:51 99 H 25 H 90 04/01/25 04:12 91 H 17 96 Nasal Cannula 2 04/01/25 04:00 106/68 04/01/25 03:42 87 21 96 04/01/25 03:00 112/73 04/01/25 03:00 112/73 04/01/25 03:00 112/73 04/01/25 02:15 95 H 22 95 04/01/25 02:00 101/67 04/01/25 01:54 94 H 23 93 04/01/25 01:06 93 H 20 94 04/01/25 01:00 98/69 L 04/01/25 00:48 94 H 22 94 04/01/25 00:39 95 H 20 94 04/01/25 00:00 99 H 22 94 Nasal Cannula 2 04/01/25 00:00 116/72 03/31/25 23:30 100 H 22 94 03/31/25 23:02 100 H 23 94 03/31/25 23:00 36.8 C 112/74 03/31/25 22:59 97 H 21 94 03/31/25 22:55 98 H 03/31/25 22:35 96 H 21 94 03/31/25 22:11 100 H 21 115/78 95 Nasal Cannula 2 03/31/25 21:35 100 H 21 97 03/31/25 21:20 100 H 25 H 96 PG Care Time/CCT Total # of Minutes Spent Total Time Spent with Patient: Total time spent is greater than 50% in coordination of care (as documented) at patient's floor/unit and/or counseling patient: Coding Level of Care Code 94752 SUB INP/OBS CARE 350MIN Diagnoses STEMI (ST elevation myocardial infarction) I21.3 Acute respiratory failure with hypoxia J96.01 Acute heart failure with reduced ejection fraction (HFrEF) I50.21 Ischemic cardiomyopathy I25.5
[2025-04-01] MEDS: ASPIRIN 81 MG ECTAB PO SCH (09:16)
[2025-04-01] MEDS: CLOPIDOGREL BISULFATE 75 MG TAB PO SCH (09:16)
[2025-04-01] MEDS: ATORVASTATIN 40 MG TAB PO SCH (09:16)
--- NOTE | 2025-04-01 09:51 | Billing Data ---
Date of Service April 01, 2025 Coding Level of Care Code 56686 SUB INP/OBS CARE
--- NOTE | 2025-04-01 10:59 | Cardiology Progress Note ---
Date of Service April 01, 2025 Assessment & Plan (1) ST elevation NC (STEMI): Plan: --post 2 PHOENIX to proximal to mid LAD --residual diagonal, OM disease. Right to left collaterals to diagonal 2. Acute HF/HFrEF/ICM -- EF 30-35% 3. NSVT 4. Dyslipidemia 5. Dementia 6. CKD Stable from cardiac standpoint. No recurrent chest pain. Breathing comfortably on room air. Minimal residual congestion on exam. No apparent access site complications. No significant ectopy overnight. -- Continue DAPT with ASA, Clopidogrel -- Start low dose beta-linn -- metoprolol 12.5 BID -- Consider HEMA/MRA if BP allows. -- Likely will need maintenance diuretic on discharge. Will hold off on additional diuretic today. -- Continue PPI From a caridac standpoint OK with transfer to telemetry today. Potentially ready to go back to [facility] tomorrow from a cardiac standpoint. Appreciate ICU and hospital medicine care. Admission and Anticipated Discharge Date Admission Date: March 31, 2025 Subjective No new issues overnight. This morning denies any chest pain, shortness of breath or other new concerns. Telemetry reviewed -- 9 beat run of NSVT yesterday afternoon. No other significant ectopy overnight. Review of Systems Review of Systems: 10 point review of systems was complete d and was otherwise negative unless stated in HPI Physical Exam Physical Exam: General: Comfortable HEENT: Sclerae anicteric Lungs: Clear to auscultation bilaterally, few crackles at right base Cardiac: Regular rate and rhythm, no murmurs. No JVD Vascular: 2+ RT radial. No hematoma. Intact distal sensation/cap refill. Abdomen: Soft, nontender Extremities: Well perfused, trace edema Psych: Alert, good spirits Results & Data Vital Signs (Past 12 Hours) Vital Signs Temp Pulse Resp BP Pulse Ox O2 Del Method O2 Flow Rate 04/01/25 07:46 97.5 F L 04/01/25 07:35 Nasal Cannula 2 04/01/25 06:30 95 H 22 96 04/01/25 06:21 99 H 19 95 04/01/25 06:15 113 H 20 96 04/01/25 06:00 89/65 L 04/01/25 05:51 14 97 04/01/25 05:36 100 H 21 96 04/01/25 05:12 102 H 27 H 90 08/12/25 05:06 100 H 24 95 04/01/25 05:00 98.6 F 89/60 L 04/01/25 04:51 99 H 25 H 90 04/01/25 04:12 91 H 17 96 Nasal Cannula 2 04/01/25 04:00 106/68 04/01/25 03:42 87 21 96 04/01/25 03:00 112/73 04/01/25 03:00 112/73 04/01/25 03:00 112/73 04/01/25 02:15 95 H 22 95 04/01/25 02:00 101/67 04/01/25 01:54 94 H 23 93 04/01/25 01:06 93 H 20 94 04/01/25 01:00 98/69 L 04/01/25 00:48 94 H 22 94 04/01/25 00:39 95 H 20 94 04/01/25 00:00 99 H 22 94 Nasal Cannula 2 04/01/25 00:00 116/72 03/31/25 23:30 100 H 22 94 03/31/25 23:02 100 H 23 94 03/31/25 23:00 98.2 F 112/74 03/31/25 22:59 97 H 21 94 03/31/25 22:55 98 H PG Care Time/CCT Total # of Minutes Spent Total Time Spent with Patient: Total time spent is greater than 50% in coordination of care (as documented) at patient's floor/unit and/or counseling patient: Coding Level of Care Code 27124 SUB INP/OBS CARE 3/50MIN Diagnoses ST elevation NC (STEMI) I21.3
--- NOTE | 2025-04-01 12:12 | Electrocardiogram Report ---
Test Reason : Blood Pressure : */* mmHG Vent. Rate : 95 BPM Atrial Rate : 95 BPM P-R Int : 152 ms QRS Dur : 92 ms QT Int : 376 ms P-R-T Axes : 47 -46 99 degrees QTcB Int : 472 ms Normal sinus rhythm Possible Left atrial enlargement Incomplete right bundle branch block Left anterior fascicular block Anteroseptal injury pattern * ACUTE AK T wave abnormality, consider lateral ischemia Abnormal ECG When compared with ECG of 31-Mar-2025 07:46, QRS duration has decreased Confirmed by Jose Wheat ([id number]) on 04/01/2025 12:12:05 PM Referred By: REFERRED SELF Confirmed By: Jose Wheat
--- NOTE | 2025-04-01 12:21 | Electrocardiogram Report ---
Test Reason : Blood Pressure : */* mmHG Vent. Rate : 95 BPM Atrial Rate : 95 BPM P-R Int : 144 ms QRS Dur : 84 ms QT Int : 384 ms P-R-T Axes : 38 -54 93 degrees QTcB Int : 482 ms Normal sinus rhythm Left anterior fascicular block Minimal voltage criteria for LVH, may be normal variant Septal infarct (cited on or before 31-Mar-2025) T wave abnormality, consider lateral ischemia Abnormal ECG When compared with ECG of 31-Mar-2025 07:58, (unconfirmed) No significant change was found Confirmed by Jose Wheat ([id number]) on 04/01/2025 12:20:45 PM Referred By: REFERRED SELF Confirmed By: Jose Wheat
[2025-04-01] MEDS: METOPROLOL TARTRATE 25 MG TAB PO SCH (12:56)
[2025-04-01] MEDS: HEPARIN SOD 5,000 UNIT/0.5 ML VIAL SQ SCH (20:24)
[2025-04-02 11:45] LABS: Hematocrit (blood only) 38.2 % (37.0-47.0); Hemoglobin 12.4 g/dl (12.0-16.0); Immature Granulocytes # (auto) 0.02 K/uL (0.01-0.20); Immature Granulocytes % (auto) 0.2 %; Mean Corpuscular Hemoglobin 29.6 pg (25.0-34.0); Mean Corpuscular Volume 91.2 fL (80.0-100.0); Platelet Count 210 K/uL (130-400); RDW Standard Deviation 48.7 fL (36.4-46.3); Red Blood Count 4.19 M/uL (4.20-5.40); White Blood Count 8.16 K/ul (4.8-10.8)
[2025-04-02 11:58] LABS: Anion Gap 3.0 (3-11); Blood Urea Nitrogen 37.0 mg/dl (6-23); Calcium 8.3 mg/dl (8.6-10.3); Carbon Dioxide 33.0 mmol/L (21-32); Chloride 104.0 mmol/L (98-107); Creatinine Clr Calc Pharmacy 21.4 ml/min; Glucose 91.0 mg/dl (70-99(Fasting)); Potassium 4.5 mmol/L (3.5-5.1); Sodium 140.0 mmol/L (136-145)
[2025-04-02 12:14] LABS: Thyroid Stimulating Hormone 7.845 uIu/ml (0.300-4.500)
--- NOTE | 2025-04-02 15:41 | Electrocardiogram Report ---
Test Reason : Blood Pressure : */* mmHG Vent. Rate : 81 BPM Atrial Rate : 81 BPM P-R Int : 128 ms QRS Dur : 78 ms QT Int : 408 ms P-R-T Axes : 6 -51 111 degrees QTcB Int : 473 ms Normal sinus rhythm Left anterior fascicular block T wave abnormality, consider lateral ischemia Abnormal ECG When compared with ECG of 31-Mar-2025 09:43, Criteria for Septal infarct are no longer Present Non-specific change in ST segment in Anterior leads T wave amplitude has decreased in Inferior leads T wave inversion more evident in Anterolateral leads Confirmed by Jose Wheat ([id number]) on 04/02/2025 3:41:05 PM Referred By: REFERRED SELF Confirmed By: Jose Wheat
--- NOTE | 2025-04-02 17:09 | Hospitalist Progress Note ---
Date of Service April 02, 2025 Assessment & Plan (1) STEMI (ST elevation myocardial infarction): (2) Tachycardia: (3) UTI (urinary tract infection): (4) Thyroid disease: Plan Pt is a 89 yo female with PMH of dementia, hypothyroidism and hx of hip fracture who presented to ED with chest pain and vomiting. Pt found to have ST elevations and taken to [facility] evaluation. Pt is now s/p PHOENIX x 2 at LAD for 100% infarct. Pt has been hemodynamically stable overnight. #STEMI -Pt is hemodynamically stable post cath and PHOENIX x 2 -Troponin 126.9 in ED, 1414.2-->579362 > 30469 - Continue DAPT with ASA, Clopidogrel - Start low dose beta-linn -- metoprolol 12.5 BID - Consider HEMA/MRA if BP allows. - Likely will need maintenance diuretic on discharge. Will hold off on additional diuretic today. - Continue PPI -Continue atorvastatin 40mg #Dementia -Pt with underlying hx of dementia living at [place]. Baseline cognitive function is unknown at this time. -No cognitive changes noted from yesterday's presentation #N/V - Continue pantoprazole 40mg qam Hypothyroidism: Will continue home dose of levothyroxine 75mcg qam Dispo: -PT/OT evaluation pending -Likely Rehab before going home Code-Full DVT prophylaxis-Heparin GI prophylaxis- pantoprazole 40mg Diet-Heart healthy Admission and Anticipated Discharge Date Admission Date: March 31, 2025 Supervising Physician Co-Signing Physician Notes I personally examined the patient and verified all grant points of history and exam, discussed case, and agree with decision making with Dr Alanis no issues noted. pt on commode talking nonsensically but no problems identified. vitals noted exam as above STEMI - now s/p cath/stenting. med management. PT/OT - awaiting ?return to [facility] otherwise as above Subjective Patient has advanced dementia disoriented to time, place and person. No any overnight events. Denies chest pain, SOB, palpitations or feeling of passing out. Denied any new concerns. Review of Systems Review of Systems: As per HPI Physical Exam Physical Exam: Constitutional: Well appearing, No acute distress, PILCCOD: Negative HEENT: Atraumatic, Normocephalic, No conjunctival injection CVS: S1 S2 no murmur, Regular Rhythm, no LE edema Respiratory: BL equal air entry with NVBS. No rhonchi, wheezes, or crackles. No increased work of breathing GI: Soft, Nondistended, Nontender, Normal Bowel sounds + MSK: No gross deformities noted Skin: Warm, Dry, No rashes Neuro: Alert, Oriented to TPP, No Focal deficit Psych: Mood and Affect congruent, Cooperative on exam Results & Data Results & Data Vital Signs (Past 12 Hours) Vital Signs Temp Pulse Resp BP Pulse Ox O2 Del Method 04/02/25 10:42 77 14 04/02/25 10:24 81 23 04/02/25 09:00 101 H 16 95 04/02/25 08:30 119 H 22 94 Room Air 04/02/25 08:01 108/68 04/02/25 08:00 97 H 20 04/02/25 07:54 97 H 15 04/02/25 07:45 37.1 C 04/02/25 07:21 83 27 H
--- NOTE | 2025-04-02 17:34 | Billing Data ---
Date of Service April 02, 2025 Coding Level of Care Code 82493 SUB INP/OBS CARE
--- NOTE | 2025-04-02 23:29 | Cardiology Progress Note ---
Date of Service April 02, 2025 Assessment & Plan (1) ST elevation CA (STEMI): Plan: --post 2 PHOENIX to proximal to mid LAD --residual diagonal, OM disease. Right to left collaterals to diagonal 2. Acute HF/HFrEF/ICM -- EF 30-35% 3. NSVT 4. Dyslipidemia 5. Dementia 6. Acute SHELLY on CKD Stable from cardiac standpoint. No reports of recurrent chest pain. Troponins peaked Hemodynamically and electrically stable. No signs of heart failure on exam. No apparent access site complications. -- Continue DAPT with ASA, Clopidogrel -- Tolerating low-dose metoprolol 12.5 BID. Increase to 25 mg twice daily as BP allows -- Will hold off on HEMA/MRA with mild SHELLY -- No need for additional diuretics at this point -- Continue PPI From a cardiac standpoint okay to return to [facility] after PT/OT eval. Appreciate hospital medicine care. Admission and Anticipated Discharge Date Admission Date: March 31, 2025 Subjective No overnight events. Today he denies any pain or shortness of breath. No other new concerns. Telemetry reviewedno events Review of Systems Review of Systems: Unobtainable due to cognitive status Physical Exam Physical Exam: General: Comfortable HEENT: Sclerae anicteric Lungs: Clear to auscultation bilaterally Cardiac: Regular rate and rhythm, no murmurs. Vascular: 2+ RT radial. No hematoma. Intact distal sensation/cap refill. Abdomen: Soft, nontender Extremities: Well perfused, trace edema Psych: Alert, good spirits Results & Data Vital Signs (Past 12 Hours) Vital Signs Temp Pulse Pulse Resp BP BP Pulse Ox 04/02/25 20:16 96 H 108/63 94 04/02/25 18:57 97.7 F 55 L 18 117/73 04/02/25 17:42 107 H 18 04/02/25 17:06 103 H 24 95 04/02/25 16:39 113/65 04/02/25 16:36 102 H 28 H 04/02/25 16:12 103 H 21 04/02/25 16:01 98.6 F 04/02/25 15:30 100 H 25 H 04/02/25 15:03 92 H 25 H 04/02/25 14:30 96 H 04/02/25 14:00 93 H 28 H 04/02/25 13:33 88 18 04/02/25 13:06 88 23 04/02/25 12:36 83 19 04/02/25 12:18 99/55 L 04/02/25 12:06 84 25 H 95 04/02/25 12:05 98.6 F 04/02/25 11:42 81 18 O2 Del Method 04/02/25 20:16 Room Air 04/02/25 18:57 Room Air 04/02/25 17:42 04/02/25 17:06 Room Air 04/02/25 16:39 04/02/25 16:36 04/02/25 16:12 04/02/25 16:01 04/02/25 15:30 04/02/25 15:03 04/02/25 14:30 04/02/25 14:00 04/02/25 13:33 04/02/25 13:06 04/02/25 12:36 04/02/25 12:18 04/02/25 12:06 Room Air 04/02/25 12:05 04/02/25 11:42 PG Care Time/CCT Total # of Minutes Spent Total Time Spent with Patient: Total time spent is greater than 50% in coordination of care (as documented) at patient's floor/unit and/or counseling patient: Coding Level of Care Code 58314 SUB INP/OBS CARE 2/35MIN Diagnoses ST elevation CA (STEMI) I21.3
--- NOTE | 2025-04-03 10:34 | Hospitalist Progress Note ---
Date of Service April 03, 2025 Assessment & Plan (1) STEMI (ST elevation myocardial infarction): (2) Tachycardia: (3) UTI (urinary tract infection): (4) Thyroid disease: Plan Pt is a 89 yo female with PMH of dementia, hypothyroidism and hx of hip fracture who presented to ED with chest pain and vomiting. Pt found to have ST elevations and taken to [facility] evaluation. Pt is now s/p PHOENIX x 2 at LAD for 100% infarct. Pt has been hemodynamically stable overnight. #STEMI -Pt is hemodynamically stable post cath and PHOENIX x 2 -Troponin 126.9 in ED, 1414.2-->542968 > 27378 - Continue DAPT with ASA, Clopidogrel - Start low dose beta-linn -- metoprolol 12.5 BID - Consider HEMA/MRA if BP allows. - Likely will need maintenance diuretic on discharge. Will hold off on additional diuretic today. - Continue PPI -Continue atorvastatin 40mg #Dementia -Pt with underlying hx of dementia living at [place]. Baseline cognitive function is unknown at this time. -No cognitive changes noted from yesterday's presentation #N/V - Continue pantoprazole 40mg qam Hypothyroidism: Will continue home dose of levothyroxine 75mcg qam Dispo: -PT/OT evaluation pending -Likely Rehab before going home Code-Full DVT prophylaxis-Heparin GI prophylaxis- pantoprazole 40mg Diet-Heart healthy Admission and Anticipated Discharge Date Admission Date: March 31, 2025 Supervising Physician Co-Signing Physician Notes I personally examined the patient and verified all grant points of history and exam, discussed case, and agree with decision making with Dr Alanis no issues noted. when i entered the room, cardiology present as well - input greatly appreciated. vitals noted breathing unlabored no accessory muscles good effort skin no rashes no pallor or icterus neuro no focal deficits STEMI - now s/p cath/stenting. med management. PT/OT - awaiting ?return to [facility] (apparently they are going to come evaluate her tomorrow and decide) otherwise as above Subjective No overnight events. Today he denies any pain or shortness of breath. No other new concerns. Telemetry reviewedno events Review of Systems Review of Systems: As per HPI Physical Exam Physical Exam: Constitutional: Well appearing, No acute distress, PILCCOD: Negative HEENT: Atraumatic, Normocephalic, No conjunctival injection CVS: S1 S2 no murmur, Regular Rhythm, no LE edema Respiratory: BL equal air entry with NVBS. No rhonchi, wheezes, or crackles. No increased work of breathing GI: Soft, Nondistended, Nontender, Normal Bowel sounds + MSK: No gross deformities noted Skin: Warm, Dry, No rashes Neuro: Alert, Oriented to TPP, No Focal deficit Psych: Mood and Affect congruent, Cooperative on exam Results & Data Results & Data Vital Signs (Past 12 Hours) Vital Signs Temp Pulse Resp BP Pulse Ox O2 Del Method 04/03/25 09:10 94 Room Air 04/03/25 07:30 Room Air 04/03/25 07:21 36.7 C 91 H 16 100/67 91 Room Air
[2025-04-03 11:28] LABS: Anion Gap 6.0 (3-11); Blood Urea Nitrogen 28.0 mg/dl (6-23); Calcium 8.5 mg/dl (8.6-10.3); Carbon Dioxide 27.0 mmol/L (21-32); Chloride 108.0 mmol/L (98-107); Creatinine Clr Calc Pharmacy 26.5 ml/min; Glucose 96.0 mg/dl (70-99(Fasting)); Potassium 4.3 mmol/L (3.5-5.1); Sodium 141.0 mmol/L (136-145)
--- NOTE | 2025-04-03 13:50 | Cardiology Progress Note ---
Date of Service April 03, 2025 Assessment & Plan (1) ST elevation CA (STEMI): Plan: --post 2 PHOENIX to proximal to mid LAD --residual diagonal, OM disease. Right to left collaterals to diagonal 2. Acute HF/HFrEF/ICM -- EF 30-35% 3. NSVT 4. Dyslipidemia 5. Dementia 6. Acute SHELLY on CKD Stable from cardiac standpoint. Denies chest pain. No signs of heart failure on exam. No access site complications. SCr stable -- Continue DAPT with ASA, Clopidogrel -- Tolerating low-dose metoprolol 12.5 BID. Can increase to 25 mg twice daily -- Will hold off on HEMA/MRA. Consider as an outpatient -- No need for additional diuretics at this point -- Continue PPI From a cardiac standpoint okay to return to [place]. Admission and Anticipated Discharge Date Admission Date: March 31, 2025 Subjective No overnight events. Today she denies any pain or shortness of breath. No other new concerns. Review of Systems Review of Systems: 10 point review of systems was complete d and was otherwise negative unless stated in HPI Physical Exam Physical Exam: General: Comfortable HEENT: Sclerae anicteric Lungs: Clear to auscultation bilaterally, few crackles at RT base Cardiac: Regular rate and rhythm, no murmurs. Vascular: 2+ RT radial. No hematoma. Intact distal sensation/cap refill. Abdomen: Soft, nontender, + bowel sounds Extremities: Well perfused, trace edema Psych: Alert, good spirits Results & Data Vital Signs (Past 12 Hours) Vital Signs Temp Pulse Resp BP Pulse Ox O2 Del Method 04/03/25 09:10 94 Room Air 04/03/25 07:30 Room Air 04/03/25 07:21 98.1 F 91 H 16 100/67 91 Room Air PG Care Time/CCT Total # of Minutes Spent Total Time Spent with Patient: Total time spent is greater than 50% in coordination of care (as documented) at patient's floor/unit and/or counseling patient: Coding Level of Care Code 07781 SUB INP/OBS CARE 2/35MIN Diagnoses ST elevation CA (STEMI) I21.3
--- NOTE | 2025-04-03 15:40 | Billing Data ---
Date of Service April 03, 2025 Coding Level of Care Code 11339 SUB INP/OBS CARE
[2025-04-04 07:37] VITALS: BP 109/66; PULSE 82; RESP 18; TEMP 98.1; O2SAT 92
--- NOTE | 2025-04-04 11:48 | Discharge Summary ---
Date of Service April 04, 2025 Admission HPI Per Admitting Provider Noemí Stack is an 89 year old female who presents to the ER from [facility] after being found in another patient's room having vomited and complaining of chest pain. Patient has underlying dementia and cannot remember what happened or give me any history. She can tell me she has chest pain and points to her sternum, tells me this is mild but cannot give me a severity number or any additional features of the pain. Initial EKG per EMS was concerning for ST elevation in anterior leads however this appeared to improve on EKG in the ER and she was reportedly chest pain free. Per hand over she had aspirin in the ambulance. Shortly before I went to see her in the ER her chest pain had returned and repeat EKGs were concerning for ST elevation again in anterior leads therefore heart alert was called. RN tried calling the daughter who was with her but no answer. I tried calling her and also no answer. Patient discussed with Dr Diaz (ER Physician), Dr Barrett (bull float finisher) and Dr Dugan (Children'S Librarian). RN called [facility] and she is listed as full code. Admission Exam Per Admitting Provider HEENT: Head - normocephalic and atraumatic. Pupils are equal, round, and reactive to light. Extraocular eye muscles are intact, and sclera are anicteric. Nose - moist nasal mucosa without discharge. Mouth - moist buccal mucosa. Oropharynx is nonerythematous and there is no tonsillar exudate or edema noted. Neck: Supple; no JVD, nuchal rigidity, cervical lymphadenopathy. Heart: Regular rate and rhythm. There is a normal S1 and S2 with no murmurs, clicks, or gallops appreciated. Lungs: Clear to auscultation bilaterally with no wheezes, rales, or rhonchi. Abdomen: Soft, completely nontender, nondistended, with good bowel sounds. There are no palpable pulsatile masses or hepatosplenomegaly. There is no guarding, rigidity, or rebound noted. Extremities: No evidence of cyanosis, clubbing, or edema. There are easily palpable peripheral pulses. Skin: Pale and diaphoretic with no rashes neuro: Pleasantly confused Principal Diagnosis 1. ST elevation NH 2. Acute HF/HFrEF/ICM 3. NSVT 4. Dyslipidemia 5. Dementia 6. Acute SHELLY on CKD Discharge Exam Constitutional: Well appearing, No acute distress, PILCCOD: Negative HEENT: Atraumatic, Normocephalic, No conjunctival injection CVS: S1 S2 no murmur, Regular Rhythm, no LE edema Respiratory: BL equal air entry with NVBS. No rhonchi, wheezes, or crackles. No increased work of breathing GI: Soft, Nondistended, Nontender, Normal Bowel sounds + MSK: No gross deformities noted Skin: Warm, Dry, No rashes Neuro: Alert, Oriented to TPP, No Focal deficit Psych: Mood and Affect congruent, Cooperative on exam Discharge Data Allergies Allergy/AdvReac Type Severity Reaction Status Date / Time naproxen Allergy Severe SWELLING Verified 10/24/22 12:38 OF EYES, LIPS. 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 ACCOUNTING TUTOR side Verified 10/24/22 12:38 effects omeprazole [From Prilosec] AdvReac Intermediate Abdominal Verified 10/24/22 12:38 Pain risedronate sodium AdvReac Intermediate Aches and Verified 10/24/22 12:38 [From Actonel] gastrointestinal upset Consultations 03/31/25 07:07 ED Decision to Admit Stat 03/31/25 08:03 Consult Cardiology Stat 03/31/25 12:58 Consult Children'S Librarian Routine Procedures Performed Operation Date: 03/31/25 08:30 Actual Procedures p Cineradiography w/Routine Exam - Estrada Barrett MD p Aspiration/PCI w/PHOENIX for Stemi - Estrada Barrett MD p POBA each ADDTL Vessel - Estrada Barrett MD Ordered Studies 03/31/25 08:07 CL Cath Imgs for PACS use only Stat Hospital Course (1) STEMI (ST elevation myocardial infarction): (2) Tachycardia: (3) UTI (urinary tract infection): (4) Thyroid disease: Plan Pt is a 89 yo female with PMH of dementia, hypothyroidism and hx of hip fracture who presented to ED with chest pain and vomiting. Pt found to have ST elevations and taken to analytical laboratory technician for evaluation. Pt is now s/p PHOENIX x 2 at LAD for 100% infarct. Pt has been hemodynamically stable overnight. #STEMI -Pt is hemodynamically stable post cath and PHOENIX x 2 -Troponin 126.9 in ED, 1414.2-->485982 > 73960 - Continue DAPT with ASA, Clopidogrel - Metoprolol 25mg BID - Continue PPI -Continue atorvastatin 40mg -Followup with PCP and Cardiology in the outpatient #Dementia -Pt with underlying hx of dementia living at [place]. Baseline cognitive function is unknown at this time. -No cognitive changes noted Hypothyroidism: Will continue home dose of levothyroxine 75mcg qam Dispo: - Patient going to [facility] with her Total Time Total Time Spent Total Time Spent (In Minutes): Less than 30 Discharge Plan Discharge Items Patient Disposition: Personal [facility] Living Reason For Visit: STEMI Discharge Diagnosis: 1. ST elevation NH 2. Acute HF/HFrEF/ICM 3. NSVT 4. Dyslipidemia 5. Dementia 6. Acute SHELLY on CKD Condition on Discharge: Critical Activity: Per Instructions section Non-emergency contact: Primary Care Provider and Dag Sprayer Call non-emergency contact if: you have any medication questions and your symptoms worsen Follow-up/Referrals: Artemio Rodriguez MD [Primary Care Provider] - Diet: Heart Healthy Addtl Attending Provider Instructions: You presented to the hospital with chest pain . You were found to have ST elevation on ECG and troponin was also very high. You were found to have Myocardial Infarction and were sent to analytical laboratory technician for stent placement. You need to be on some medication after heart attack to prevent further attack. Discharge summary will be sent to your primary care physician to ensure continuity of care. Please bring this discharge summary with you to your next office appointment so that your provider can review it at that time. Follow-up appointments: Make a follow-up appointment with your PCP within the next week. It is very important that you follow up with them shortly after discharge from the hospital.] You need to follow up with cardiology in the outpatient. Cardiology team will reach out regarding the schedule. Keep all your follow-up appointments as already scheduled. If you cannot make an appointment, notify your provider. Medications: Your medication list has been reviewed and reconciled upon discharge to ensure accuracy and continuity of care. An updated list of all your medications is included with your hospital discharge paperwork. Please review this list closely, and make note of any changes. We sent a new medication called Aspirin to your pharmacy. Take Aspirin daily We sent a new medication called Clopidogrel to your pharmacy. Take Clopidogrel daily We have sent anew medication called Atorvastatin to your pharmacy. Take Atorvastatin 40mg daily We have sent a new medication called Metoprolol to your pharmacy. Take Metoprolol 25mg two times a day If you have any issues filling these prescriptions, please call [phone] and ask to leave amessage for Dr. Nancy Alanis Take your medications as instructed; do not skip a dose of your medicines. Make sure all of yourdoctors know every medicine you are taking (including ydro-cmw-nhtdruj medicines, vitamins, and supplements). Call your primary care provider before taking any new medicines (including overthe-counter medicines, vitamins, and supplements), because some of these may interact with your current medications, or may make your symptoms worse. Tell your primary care provider ifyou cannot afford your medications. CONTACT YOUR PRIMARY CARE PROVIDER if you experience any of the following: Severe chest pain Difficulty in breathing Difficulty following your treatment plan, or difficulty taking medications CALL 911 OR GO TO THE EMERGENCY DEPARTMENT if you experience any of the follow ing: Sudden, severe abdominal pain or nausea/vomiting Severe chest pain, or chest pain that radiates (moves) to your jaw or arm Sudden, severe shortness of breath or difficulty breathing Thank you for allowing us to participate in your care. Pending Studies at Discharge: No Stand-Alone Forms: My RentMonitor, Smoking Cessation Skilled Items Patient informed of condition?: Yes DNR: No Discharge Level of Care: Other Communicable Disease: No Discharge Prognosis: Improving Lines: None Urinary Catheter: No Medications and DC Order Prescriptions: New metoprolol tartrate 25 mg tablet 25 mg PO BID 30 Days Qty: 60 0RF atorvastatin 40 mg Tablet 40 mg PO QAM 30 Days Qty: 30 0RF clopidogrel 75 mg Tablet 75 mg PO QAM 30 Days Qty: 30 0RF aspirin 81 mg Tablet,Delayed Release (Dr/Ec) 81 mg PO QAM 30 Days Qty: 30 1RF Continued levothyroxine 75 mcg tablet 75 mcg PO QAM cyclosporine [Restasis] 0.05 % Dropperette 0 drp OPB DAILY PRN (Reason: Dry Eyes) Patient Comments: Unable to verify at this date/time. Not on file w/ pharmacy. Original Directions: 1 drop into both eyes daily as needed for dry eye - 03/31/25 Lumigan 0.01 % Drops 0 drp OPB QPM Patient Comments: Unable to verify at this date/time. Not on file w/ pharmacy. Original Directions: 1 drop into both eyes in the evening - 03/31/25 Centrum Silver 0.4-300-250 mg-mcg-mcg Tablet 1 tab PO QPM Rx Instructions: Unable to verify OTC meds at this date/time. - 03/31/25 acetaminophen [Tylenol Extra Strength] 500 mg Tablet 1,000 mg PO TID PRN (Reason: fever or pain) Qty: 30 0RF Rx Instructions: Unable to verify OTC meds at this date/time. - 03/31/25 sennosides-docusate sodium [Senokot-S] 8.6-50 mg Tablet 2 tab PO HS Qty: 30 0RF Patient Comments: Unable to verify OTC meds at this date/time. 03/31/25 latanoprost 0.005 % drops 1 drp ophthalmic (eye) HS tramadol 50 mg tablet 0 mg PO Q4H PRN (Reason: pain) Patient Comments: Unable to verify at this date/time. Not on file w/ pharmacy. Original Directions: Take 50mg-100mg by mouth every 4 hours as needed for pain. - 03/31/25 Rx Instructions: 1-2 tablets as needed for pain Discharge Orders: Discharge Order (Routine); Ordered 04/04/25 Ordered By: Nancy Alanis Admission Data Admit Date/Time: 03/31/25 08:11 Attending Provider: Nakul Barajas Admit Provider: Abdiaziz Alonso Primary Care Provider: Artemio Rodriguez Other Providers: Abdiaziz Alonso; Estrada Barrett; Luis Enrique Dugan Other Interventions: Discharge Summary Assessment (RN) Last Done: 04/04/25 10:37 Supervising Physician Co-Signing Physician Notes I personally examined the patient and verified all grant points of history and exam, discussed case, and agree with decision making with Dr Alanis no new problems, no new complaints. Is able to go back to her personal care today vitals noted breathing unlabored no accessory muscles good effort skin no rashes no pallor or icterus neuro no focal deficits STEMI - now s/p cath/stenting. med management. for return to personal care today otherwise as above Resident Activity Tracking Resident Involvement: Resident Care Provided Care Provided: Adult [facility] Medicine
--- NOTE | 2025-04-04 12:39 | Billing Data ---
Date of Service April 04, 2025 Coding Level of Care Code 90117 IN/OBS DISCH 30 MIN/LESS
== END 2025-04-04 12:54 | disposition home or self-care (01) | DRG 321 ==
LOC: ED 03:51 → 1E 08:11 → SUATTDRO 08:11 → 1E 04-02 14:36 → 3N 04-02 18:51